=== PATIENT | female | born 1945 | race Caucasian/White ===

== ENCOUNTER → 2017-12-03 09:14 | Outpatient (CLI) | payer MEDICARE, OTHER, SELFPAY ==
--- NOTE | 2017-12-03 | DI.MG.S_ITS ---
BILATERAL DIGITAL DIAGNOSTIC MAMMOGRAM: 12/03/2017 CLINICAL: Right breast pain. Comparison is made to exam dated: 08/06/2016 [facility]. There are scattered fibroglandular elements in both breasts. There is an oval high density lymph node with a macrolobulated margin in the left breast posterior depth superior region seen on the mediolateral oblique view only. No other significant masses, calcifications, or other findings are seen in either breast. IMPRESSION: INCOMPLETE: NEEDS ADDITIONAL IMAGING EVALUATION The oval high density lymph node in the left breast is indeterminate. An ultrasound is recommended. There is no abnormality seen in the right axilla to correspond with the palpable abnormality in the right axilla, however, ultrasound is recommended. This exam was interpreted at Station ID: [id number]. NOTE: For mammograms, a report in lay terms will be sent to the patient. Approximately 15% of breast malignancies will not be visualized mammographically. In the management of a palpable breast mass, a negative mammogram must not discourage biopsy of a clinically suspicious lesion. Electronically Signed By: Juno cain/jacque:12/03/2017 12:00:30 letter sent: Need Ultrasound ACR BI-RADS Category 0: Incomplete [id number]
--- NOTE | 2017-12-03 | DI.US.S_ITS ---
ULTRASOUND OF RIGHT BREAST: 12/03/2017 CLINICAL: Focal right breast/axillary pain. Comparison is made to exams dated: 12/03/2017 mammogram and 08/06/2016 mammogram - [facility]. Real-time ultrasound of the right breast was performed on the area of interest. IMPRESSION: NEGATIVE There is no sonographic evidence of malignancy. There is no abnormality seen in the right axilla to correspond with the palpable abnormality in the right axilla, however, clinical followup is recommended. A 1 year screening mammogram is recommended. This exam was interpreted at Station ID: [id number]. Electronically Signed By: Juno cain/jacque:12/03/2017 11:00:58 letter sent: Clinical Evaluation Ultrasound BI-RADS: 1 Negative
--- NOTE | 2017-12-03 | DI.US.S_ITS ---
ULTRASOUND OF LEFT AXILLA: 12/03/2017 CLINICAL: Prominent left axillary nodes on mammo. Comparison is made to exams dated: 12/03/2017 mammogram and 08/06/2016 mammogram - [facility]. Color flow and real-time ultrasound of the left axilla were performed on the areas of interest. There are multiple oval lymph nodes with circumscribed margins in the left axillary tail. These oval lymph nodes are of mixed echogenicity with preserved fatty genoveva. These correlate with the mammography findings. Color flow imaging demonstrates that there is no increase in vascularity. IMPRESSION: BENIGN There is no sonographic evidence of malignancy. Multiple left axillary lymph nodes are noted with normal fatty genoveva and without evidence of abnormal focal cortical thickening. A 1 year screening mammogram is recommended. This exam was interpreted at Station ID: [id number]. Electronically Signed By: Juno Palmer M.D. ddp/:12/03/2017 11:04:27 letter sent: Normal Exam Ultrasound BI-RADS: 2 Benign
== END ==
PROVIDERS: PCP Physician Assistant; Visit Provider Physician Assistant
DX: N64.4 Mastodynia (principal); R92.8 Other abnormal and inconclusive findings on diagnostic imaging of breast; R59.0 Localized enlarged lymph nodes
CPT/HCPCS: 76642; 76882; 77066; G0279

== ENCOUNTER → 2018-01-26 12:08 | Outpatient (CLI) | payer MEDICARE, OTHER, SELFPAY ==
--- NOTE | 2018-01-26 | DI.RAD.S_ITS ---
PROCEDURE: XR CHEST 2V INDICATIONS: ACUTE BRONCHITIS TECHNIQUE: 2 views of the chest were acquired. COMPARISON: Merged with [facility], CHEST 2 VIEW, 10/17/2013, 14:39. Merged with [facility], CHEST 2 VIEW, 07/16/2011, 13:00. Merged with [facility], CHEST 2 VIEW, 10/14/2010, 14:38. FINDINGS: Surgical changes and devices: None. Lungs and pleura: No pleural effusions or pneumothorax. Lungs are clear. There is minimal bilateral bronchial wall thickening. Mediastinum: Mediastinal contours are normal. Heart size is normal. Bones and chest wall: No suspicious bony abnormalities. Soft tissues appear unremarkable. Mild multilevel degenerative changes of the spine. IMPRESSION: #1. No focal consolidations concerning for pneumonia. #2. Minimal bilateral bronchial wall thickening, nonspecific finding that can be seen with viral respiratory tract infections or obstructive lung disease is such as asthma. Dictated by: Abelino Cool M.D. on 01/26/2018 at 12:49 Approved by: Abelino Cool M.D. on 01/26/2018 at 12:51
== END ==
PROVIDERS: PCP Physician Assistant; Visit Provider Student in an Organized Health Care Education/Training Program
DX: J20.9 Acute bronchitis, unspecified (principal)
CPT/HCPCS: 71046

== ENCOUNTER 2018-07-11 15:08 | Emergency (ER) | payer MEDICARE, OTHER, SELFPAY ==
[2018-07-11 15:15] VITALS: BP 98/52; PULSE 75; RESP 16; TEMP 36.5; O2SAT 98; BMI 28.7
--- NOTE | 2018-07-11 15:24 | ED.ABDPAIN ---
HPI - Abdominal Pain <IGNACIO Luciano - Last Filed: 07/11/18 21:35> General Chief Complaint: Abdominal Pain Stated Complaint: Abd pain Time Seen by Provider: 07/11/18 15:21 Source: patient Mode of arrival: ambulatory Limitations: no limitations History of Present Illness HPI narrative: 73-year-old female history of hysterectomy and constipation here for complaint of constipation over the past several weeks. She reports that her last bowel movement was several days ago and was small and hard. She reports having generalized abdominal pain. She does report having some flatus today. Positive p.o. intake. No nausea vomiting. She denies any fevers or chills. No urinary symptoms. She has been using MiraLax for her symptoms. No other concerns or Related Data Home Medications Medication Instructions Recorded Confirmed estradiol 1 mg PO DAILY #0 09/07/17 07/11/18 Metamucil 1 dose PO DAILY 07/11/18 07/11/18 albuterol sulfate 3 ml INHALATION TID PRN 07/11/18 07/11/18 chlorthalidone 25 mg PO DAILY 07/11/18 07/11/18 diltiazem HCl [Cartia XT] 120 mg PO BEDTIME 07/11/18 07/11/18 docusate sodium [Colace] 100 mg PO DAILY 07/11/18 07/11/18 duloxetine 30 mg PO DAILY 07/11/18 07/11/18 esomeprazole magnesium 40 mg PO BID 07/11/18 07/11/18 fluticasone-vilanterol [Breo 1 puff INHALATION DAILY 07/11/18 07/11/18 Ellipta] hydrocodone-acetaminophen 1 - 2 tab PO TID PRN 07/11/18 07/11/18 levocetirizine [Xyzal] 5 mg PO BEDTIME 07/11/18 07/11/18 lisinopril 20 mg PO BID 07/11/18 07/11/18 montelukast 10 mg PO QPM 07/11/18 07/11/18 naproxen 500 mg PO BID 07/11/18 07/11/18 ondansetron 4 mg PO Q8H PRN 07/11/18 07/11/18 polyethylene glycol 3350 [Miralax] 17 g PO DAILY 07/11/18 07/11/18 pravastatin 20 mg PO DAILY 07/11/18 07/11/18 sertraline 100 mg PO DAILY 07/11/18 07/11/18 Previous Rx's Medication Instructions Recorded glycerin (adult) 1 suppositor [place] DAILY PRN #10 each 07/11/18 magnesium citrate 296 ml PO DAILY PRN #296 ml 07/11/18 Allergies Allergy/AdvReac Type Severity Reaction Status Date / Time codeine [CODEINE] Allergy Unknown Unverified 07/11/18 19:03 Penicillins [PENICILLINS] Allergy Unknown Unverified 07/11/18 19:03 Sulfa (Sulfonamide Allergy Unknown Unverified 07/11/18 19:03 Antibiotics) [SULFA (SULFONAMIDE ANTIBIOTICS)] Review of Systems <IGNACIO Luciano - Last Filed: 07/11/18 21:35> Constitutional Denies chills, Denies fever(s), Denies lethargy and Denies weakness Eyes Denies change in vision, Denies eye discharge, Denies irritation and Denies loss of vision ENT Ears, Nose, Mouth, and Throat: Denies change in voice, Denies neck pain and Denies sore throat Cardiovascular Denies chest pain, Denies irregular heart rhythm, Denies lightheadedness, Denies palpitations, Denies dyspnea, Denies dyspnea on exertion and Denies orthopnea Respiratory Denies cough, Denies dyspnea, Denies dyspnea on exertion and Denies wheezing Gastrointestinal Gastrointestinal: Reports abdominal pain and Reports constipation Genitourinary Denies hematuria, Denies flank pain, Denies urinary incontinence and Denies urinary urgency Musculoskeletal Denies neck pain Integumentary/Breasts Denies pruritus, Denies erythema, Denies rash and Denies wounds Neurologic Denies confusion, Denies loss of vision and Denies weakness Psychiatric Denies anxiety, Denies confusion, Denies depression, Denies homicidal ideation and Denies suicidal ideation Endocrine Denies palpitations Hematologic/Lymphatic Denies easy bruising Allergic/Immunologic Denies wheezing PFSH <IGNACIO Luciano - Last Filed: 07/11/18 21:35> Surgical History Status post cholecystectomy Status post hysterectomy Status post rotator cuff repair Social History Smoking Status: Never smoker Exam <IGNACIO Luciano - Last Filed: 07/11/18 21:35> Initial Vital Signs Initial Vital Signs: Vital Signs Temperature 97.7 F 07/11/18 15:15 Pulse Rate 75 07/11/18 15:15 Respiratory Rate 16 07/11/18 15:15 Blood Pressure 98/52 L 07/11/18 15:15 Pulse Oximetry 98 07/11/18 15:15 Const General: cooperative and well developed Nutritional Appearance: well nourished Orientation: alert, awake, oriented x3 and not confused HENMT Mouth: oral mucosae normal and moist mucous membranes Throat: posterior oropharynx normal Eyes Conjunctivae: conjunctivae normal Sclera: sclerae normal Pupils: PERRL EOM: EOM intact bilaterally Resp Effort & Inspection: normal respiratory effort, able to speak in complete sentences, no respiratory distress and no use of accessory muscles Auscultation: clear to auscultation bilaterally, no rales, no rhonchi and no wheezes Cardio Rate: regular rate Rhythm: regular rhythm Heart Sounds: no click, no gallops, no murmurs and no rubs Pulses: normal peripheral pulses GI Inspection: non-distended Palpation: soft, no hepatosplenomegaly, No guarding, No pulsatile mass and tender (Generalized tenderness.) Auscultation: normal bowel sounds General: No CVA tenderness Skin General: no rashes or lesions noted, No jaundice and No petechiae Neuro General: alert, oriented x3, gait normal and no focal motor deficits Speech: speech normal <Sujey Hightower DO - Last Filed: 07/20/18 16:38> Initial Vital Signs Initial Vital Signs: Vital Signs Temperature 97.7 F 07/11/18 15:15 Pulse Rate 75 07/11/18 15:15 Respiratory Rate 16 07/11/18 15:15 Blood Pressure 98/52 L 07/11/18 15:15 Pulse Oximetry 98 07/11/18 15:15 Course <IGNACIO Luciano - Last Filed: 07/11/18 21:35> Orders Ordered: Discontinued Medications Sodium Chloride (Normal Saline 0.9%) 1,000 mls @ 1,000 mls/hr IV BOLUS ONE Stop: 07/11/18 16:32 Last Infusion: 07/11/18 17:04 Dose: 0 mls/hr Admin: 07/11/18 15:46 Dose: 1,000 mls/hr Mineral Oil (Mineral Oil Enema) 1 each [place] NOW ONE Stop: 07/11/18 18:30 Last Admin: 07/11/18 18:46 Dose: 1 each Potassium Chloride (Klor-Con M20) 40 meq PO NOW ONE Stop: 07/11/18 19:27 Last Admin: 07/11/18 19:41 Dose: 40 meq Vital Signs - 8 hr 07/11/18 15:15 07/11/18 17:06 07/11/18 19:50 Temperature 97.7 F Pulse Rate 75 70 71 Respiratory Rate 16 16 14 Blood Pressure 98/52 L 122/75 Blood Pressure [Left Arm] 109/55 L Pulse Oximetry 98 96 99 <Sujey Hightower DO - Last Filed: 07/20/18 16:38> Orders Ordered: Discontinued Medications Sodium Chloride (Normal Saline 0.9%) 1,000 mls @ 1,000 mls/hr IV BOLUS ONE Stop: 07/11/18 16:32 Last Infusion: 07/11/18 17:04 Dose: 0 mls/hr Admin: 07/11/18 15:46 Dose: 1,000 mls/hr Mineral Oil (Mineral Oil Enema) 1 each [place] NOW ONE Stop: 07/11/18 18:30 Last Admin: 07/11/18 18:46 Dose: 1 each Potassium Chloride (Klor-Con M20) 40 meq PO NOW ONE Stop: 07/11/18 19:27 Last Admin: 07/11/18 19:41 Dose: 40 meq Vital Signs - 8 hr 07/11/18 15:15 07/11/18 17:06 07/11/18 19:50 Temperature 97.7 F Pulse Rate 75 70 71 Respiratory Rate 16 16 14 Blood Pressure 98/52 L 122/75 Blood Pressure [Left Arm] 109/55 L Pulse Oximetry 98 96 99 MDM - Abdominal Pain <IGNACIO Luciano - Last Filed: 07/11/18 21:35> Lab Data Result diagrams: 07/11/18 15:40 07/11/18 15:40 Lab Results 07/11/18 07/11/18 Range/Units 15:40 15:40 WBC 13.5 H (4.5-11.0) X10^3/uL RBC 4.55 (4.0-5.2) X10^6/uL Hgb 12.5 (12.0-16.0) g/dL Hct 38.4 (36-46) % MCV 84.4 (80-100) fL MCH 27.6 (26-34) PG MCHC 32.7 (30-36) % RDW 15.4 H (11.6-14.8) % Plt Count 299 (150-400) X10^3/uL Neut % (Auto) 77.4 H (50-75) % Lymph % (Auto) 13.6 L (25-40) % [place] % (Auto) 7.3 (3-14) % Eos % (Auto) 0.8 L (2-4) % Baso % (Auto) 0.9 (0-2) % Neut # (Auto) 31403 H (6995-6195) /uL Lymph # (Auto) 1800 (6081-0503) /uL [place] # (Auto) 1000 H (0-900) /uL Eos # (Auto) 100 (0-450) /uL Baso # (Auto) 100 (0-100) /uL Sodium 139 (137-145) mmol/L Potassium 3.2 L (3.4-5.1) mmol/L Chloride 95 L (98-107) mmol/L Carbon Dioxide 32 (22-32) mmol/L BUN 20 H (7-17) mg/dL Creatinine 1.10 H (0.52-1.04) mg/dL Estimated GFR 48.6 L (>60) mL/min BUN/Creatinine Ratio 18.2 (6-22) Glucose 112 H (80-110) mg/dL Calcium 10.0 (8.4-10.2) mg/dL Total Bilirubin 0.4 (0.2-1.3) mg/dL AST 32 (14-36) IU/L ALT 23 (9-52) IU/L Alkaline Phosphatase 88 (38-126) U/L Total Protein 8.0 (6.3-8.2) g/dL Albumin 4.8 (3.5-5.0) g/dL Globulin 3.2 (1.7-4.1) g/dL Albumin/Globulin Ratio 1.5 (1.0-2.8) Lipase 62 (23-300) U/L Point of care testing: Urine Dip Bedside Urine Glucose Negative Bedside Urine Bilirubin - Negative Bedside Urine Ketone - Negative Urine Specific [place] 1.010 Bedside Urine Occult Blood - Negative Bedside Urine pH 7.0 Bedside Urine Protein - Negative Bedside Urine Urobilinogen - Negative Bedside Urine Nitrite - Negative Bedside Urine Leukocytes - Negative Esterase MDM Narrative Medical decision making narrative: CBC shows mildly elevated white count otherwise unremarkable. Chem panel shows decreased GFR 48 and increased creatinine of 1.2. Her potassium was low at 3.2 she was given oral potassium in the emergency room. CT the abdomen was obtained and it shows Multiloculated cystic lesion to the right ovary. She is referred to railcar switchman for further evaluation and MRI. CT also showed dilation of the common bowel duct. Ultrasound of the abdomen was then ordered and shows that this is most likely secondary to cholecystectomy. Her discomfort presents as constipation. She was given a Fleet's oil enema in the emergency room and was able to have a small bowel movement. She is prescribed Mag citrate and glycerin suppositories. Plenty of fluids continue MiraLax follow up with primary care provider next few days. For any worsening symptoms return emergency room. <Sujey Hightower, DO - Last Filed: 07/20/18 16:38> Lab Data Lab Results 07/11/18 07/11/18 Range/Units 15:40 15:40 WBC 13.5 H (4.5-11.0) X10^3/uL RBC 4.55 (4.0-5.2) X10^6/uL Hgb 12.5 (12.0-16.0) g/dL Hct 38.4 (36-46) % MCV 84.4 (80-100) fL MCH 27.6 (26-34) PG MCHC 32.7 (30-36) % RDW 15.4 H (11.6-14.8) % Plt Count 299 (150-400) X10^3/uL Neut % (Auto) 77.4 H (50-75) % Lymph % (Auto) 13.6 L (25-40) % [place] % (Auto) 7.3 (3-14) % Eos % (Auto) 0.8 L (2-4) % Baso % (Auto) 0.9 (0-2) % Neut # (Auto) 08251 H (3833-0055) /uL Lymph # (Auto) 1800 (8928-7691) /uL [place] # (Auto) 1000 H (0-900) /uL Eos # (Auto) 100 (0-450) /uL Baso # (Auto) 100 (0-100) /uL Sodium 139 (137-145) mmol/L Potassium 3.2 L (3.4-5.1) mmol/L Chloride 95 L (98-107) mmol/L Carbon Dioxide 32 (22-32) mmol/L BUN 20 H (7-17) mg/dL Creatinine 1.10 H (0.52-1.04) mg/dL Estimated GFR 48.6 L (>60) mL/min BUN/Creatinine Ratio 18.2 (6-22) Glucose 112 H (80-110) mg/dL Calcium 10.0 (8.4-10.2) mg/dL Total Bilirubin 0.4 (0.2-1.3) mg/dL AST 32 (14-36) IU/L ALT 23 (9-52) IU/L Alkaline Phosphatase 88 (38-126) U/L Total Protein 8.0 (6.3-8.2) g/dL Albumin 4.8 (3.5-5.0) g/dL Globulin 3.2 (1.7-4.1) g/dL Albumin/Globulin Ratio 1.5 (1.0-2.8) Lipase 62 (23-300) U/L Point of care testing: Urine Dip Bedside Urine Glucose Negative Bedside Urine Bilirubin - Negative Bedside Urine Ketone - Negative Urine Specific [place] 1.010 Bedside Urine Occult Blood - Negative Bedside Urine pH 7.0 Bedside Urine Protein - Negative Bedside Urine Urobilinogen - Negative Bedside Urine Nitrite - Negative Bedside Urine Leukocytes - Negative Esterase Discharge Plan Departure Patient Disposition: Home Clinical Impression: Complex ovarian cyst, Acute hypokalemia Constipation Qualifiers: Constipation type: unspecified constipation type Qualified Code(s): K59.00 - Constipation, unspecified Discharge Date/Time: 07/11/18 19:51 Interventions: ED Discharge Assessment Last Done: 07/11/18 19:50 Instructions: DI for Constipation Activity Restrictions/Additional Instructions: CT of the abdomen today shows multiloculated cyst to the right ovary. Recommend follow up with OBGYN for further evaluation and MRI to better evaluate the right ovary. CT also showed dilated common bile duct this is felt to be most likely secondary to gallbladder surgery in the past. For constipation you are prescribed magnesium citrate use as directed. You also prescribed glycerin suppository also use as directed. Call forms designer at number provided to schedule follow-up appointment. Plenty of fluids. Continue to use MiraLax as prescribed. Follow up with her primary care provider. For any worsening symptoms return emergency room. Potassium levels were low today so year given potassium orally in the emergency room. Prescriptions: New magnesium citrate solution 296 ml PO DAILY PRN (Reason: constipation) Qty: 296 RF: 0 glycerin (adult) suppository 1 suppositor [place] DAILY PRN (Reason: constipation) Qty: 10 RF: 0 No Action estradiol 2 MG tablet 1 mg PO DAILY Qty: 0 RF: 0 albuterol sulfate 2.5 mg /3 mL (0.083 %) solution for nebulization 3 ml Inhalation TID PRN (Reason: Shortness Of Breath) RF: 0 polyethylene glycol 3350 [Miralax] 17 gram Powder In Packet 17 g PO DAILY RF: 0 lisinopril 20 mg tablet 20 mg PO BID RF: 0 sertraline 100 mg tablet 100 mg PO DAILY RF: 0 chlorthalidone 25 mg tablet 25 mg PO DAILY RF: 0 hydrocodone-acetaminophen 10-325 mg tablet 1 - 2 tab PO TID PRN (Reason: arthritis pain) RF: 0 esomeprazole magnesium 40 mg capsule,delayed release(DR/EC) 40 mg PO BID RF: 0 docusate sodium [Colace] 100 mg Capsule 100 mg PO DAILY RF: 0 diltiazem HCl [Cartia XT] 120 mg Capsule,Extended Release 24hr 120 mg PO BEDTIME RF: 0 montelukast 10 mg Tablet 10 mg PO QPM RF: 0 pravastatin 20 mg tablet 20 mg PO DAILY RF: 0 ondansetron 4 mg Tablet,Disintegrating 4 mg PO Q8H PRN (Reason: Nausea) RF: 0 naproxen 500 mg tablet 500 mg PO BID RF: 0 duloxetine 30 mg capsule,delayed release(DR/EC) 30 mg PO DAILY RF: 0 levocetirizine [Xyzal] 5 mg Tablet 5 mg PO BEDTIME RF: 0 fluticasone-vilanterol [Breo Ellipta] 200-25 mcg/dose blister with device 1 puff Inhalation DAILY RF: 0 Metamucil 1 dose PO DAILY RF: 0 Referrals: Shawna Arreola PA-C [Primary Care Provider] - Lazaro Mack MD [Physician] - <Sujey Hightower DO - Last Filed: 07/20/18 16:38> Cosign ED Attending Cosignature Attestation: I was immediately available in the department for consultation. This documentation has been reviewed and I agree with assessment and plan. Supervised by Sujey Hightower DO
--- NOTE | 2018-07-11 15:34 | DI.CT.S_ITS ---
PROCEDURE: CT ABDOMEN PELVIS W CON INDICATIONS: Bilateral lower abdominal pain TECHNIQUE: After the administration of intravenous contrast, 5 mm thick sections acquired from the diaphragm to the symphysis. 5 mm coronal and sagittal reformats were acquired. For radiation dose reduction, the following was used: automated exposure control, adjustment of mA and/or kV according to patient size. COMPARISON: [facility], CT, L-SPINE WITHOUT CONTRAST, 05/17/2013, 9:27. FINDINGS: Image quality: Excellent. ABDOMEN: Lung bases: Lung bases are clear. Heart size is normal. There is a small hiatal hernia. Solid organs: Liver is normal in size and enhancement. Gallbladder is surgically absent. The intrahepatic biliary system is non dilated. The common bile duct is ectatic measuring up to 1.3 cm in diameter. Punctate high density foci are present within the central portion of the bile ducts suggesting the presence of small stones (series 2, images 37 and 41). Pancreas enhances normally. Spleen is normal in size and enhancement. Benign-appearing calcifications are present in the splenic hilum. No adrenal nodules. Kidneys demonstrate normal size and enhancement, without hydronephrosis. Peritoneum and bowel: Bowel loops demonstrate normal wall thickness and caliber. The appendix was not visualized; however there are no ancillary findings to suggest acute appendicitis. No free fluid or air. Nodes and vessels: No retroperitoneal or mesenteric adenopathy by size criteria. Aorta and inferior vena cava are normal in size. Miscellaneous: No ventral hernias. PELVIS: Genitourinary: Bladder wall thickness is normal. The uterus is nonvisualized and may be surgically absent. The right ovary is unremarkable. A multiloculated cystic lesion is present in the expected location of the right ovary which measures approximately 4.5 x 4.4 x 5.4 cm. Miscellaneous: No inguinal hernias or adenopathy. Bones: No suspicious bony lesions. No vertebral body compression fractures. IMPRESSION: 1. Multiloculated cystic lesion within the right ovary. Further characterization with ultrasound or gynecologic protocol MRI is recommended. Given patient's age and the appearance of this lesion, ovarian neoplasm cannot be excluded. Gynecologic consultation also recommended. 2. Dilatation of the common bile duct. Although this may be secondary to cholecystectomy, questionable high density filling defects are present within the central portion of the bile duct. Choledocholithiasis cannot be excluded. Right upper quadrant ultrasound or MRCP would be helpful to further characterize these findings. 3. The appendix is not visualized; however there are no ancillary findings to suggest acute appendicitis. Posterior fixation hardware is grossly intact. There is grade II L5 on S1 anterolisthesis. This finding is unchanged when compared with the study dated 05/17/13. These findings were discussed with IGNACIO Luciano at 4:46 PM on 07/11/18. Dictated by: Adriana Zimmer M.D. on 07/11/2018 at 16:38 Approved by: Adriana Zimmer M.D. on 07/11/2018 at 16:48
[2018-07-11] MEDS: SODIUM CHLORIDE 0.9% 1,000 ML 1000 ML IV (15:46)
[2018-07-11 15:49] LABS: Add Manual Diff / Slide Review NO; Basophils Absolute Auto 100 /uL (0-100); Basophils Percent Auto 0.9 % (0-2); Eosinophils Absolute Auto 100 /uL (0-450); Eosinophils Percent Auto 0.8 % (2-4); Hematocrit 38.4 % (36-46); Hemoglobin 12.5 g/dL (12.0-16.0); Lymphocytes Absolute Auto 1800 /uL (1100-4500); Lymphocytes Percent Auto 13.6 % (25-40); Mean Corpuscular HGB Conc 32.7 % (30-36); Mean Corpuscular Hemoglobin 27.6 PG (26-34); Mean Corpuscular Volume 84.4 fL (80-100); Monocytes Absolute Auto 1000 /uL (0-900); Monocytes Percent Auto 7.3 % (3-14); Neutrophils Absolute Auto 10400 /uL (1500-7000); Neutrophils Percent Auto 77.4 % (50-75); Platelet Count 299 X10^3/uL (150-400); Red Blood Cell Count 4.55 X10^6/uL (4.0-5.2); Red Cell Distribution Width 15.4 % (11.6-14.8); White Blood Cell Count 13.5 X10^3/uL (4.5-11.0)
[2018-07-11 16:10] LABS: Alanine Aminotransferase 23 IU/L (9-52); Albumin 4.8 g/dL (3.5-5.0); Albumin Globulin Ratio 1.5 (1.0-2.8); Alkaline Phosphatase 88 U/L (38-126); Aspartate Aminotransferase 32 IU/L (14-36); BUN Creatinine Ratio 18.2 (6-22); Bilirubin Total 0.4 mg/dL (0.2-1.3); Blood Urea Nitrogen 20 mg/dL (7-17); Carbon Dioxide 32 mmol/L (22-32); Chloride 95 mmol/L (98-107); Estimated Glomerular Filt Rate 48.6 mL/min (>60); Globulin 3.2 g/dL (1.7-4.1); Glucose 112 mg/dL (80-110); HEMOLYSIS < 15 (0-50); Lipase 62 U/L (23-300); Potassium 3.2 mmol/L (3.4-5.1); Sodium 139 mmol/L (137-145)
[2018-07-11 17:06] VITALS: BP 109/55; PULSE 70; RESP 16; O2SAT 96
--- NOTE | 2018-07-11 17:10 | DI.US.S_ITS ---
PROCEDURE: US ABDOMEN LIMITED INDICATIONS: Abdominal pain /w common bile duct wall thickening on CT TECHNIQUE: Real-time focused scanning was performed of the abdomen, with image documentation. COMPARISON: [facility], CT, CT ABDOMEN PELVIS W CON, 07/11/2018, 16:11. FINDINGS: Gallbladder is enlarged measuring 18.3 cm and demonstrates steatosis. The gallbladder is absent. Common bile duct is mildly prominent measuring 10 mm. No filling defects are identified. Visualized pancreatic head and body are within normal limits. IMPRESSION: Mildly prominent common bile duct suspected to be related to post cholecystectomy sequela. No definitive filling defects are identified. Dictated by: Sloane Lowe M.D. on 07/11/2018 at 17:58 Approved by: Sloane Lowe M.D. on 07/11/2018 at 17:59
[2018-07-11] MEDS: MINERAL OIL 1 EACH ENEMA PR (18:46)
--- NOTE | 2018-07-11 19:13 | PC.NURSE ---
Minimal output from enema. Provider Mone aguilar.
[2018-07-11] MEDS: POTASSIUM CHLORIDE 20 MEQ TAB 40 MEQ PO (19:41)
[2018-07-11 19:50] VITALS: BP 122/75; PULSE 71; RESP 14; O2SAT 99
== END 2018-07-11 19:51 | disposition home or self-care (01) ==
PROVIDERS: Emergency Provider Nurse Practitioner Family; PCP Physician Assistant
DX: N83.299 Other ovarian cyst, unspecified side (principal); E87.6 Hypokalemia; K59.00 Constipation, unspecified
CPT/HCPCS: 36591; 74177; 76705; 80053; 81003; 83690; 85025; 96360; 99283; 99285; Q9967

== ENCOUNTER → 2018-07-21 12:02 | Outpatient (CLI) | payer MEDICARE, OTHER, SELFPAY ==
--- NOTE | 2018-07-21 12:04 | DI.US.S_ITS ---
PROCEDURE: US PELVIC COMPLETE INDICATIONS: Evaluation of abnormal finding of reproductive organs TECHNIQUE: Real-time scanning was performed of the pelvic organs, with image documentation. Additional endovaginal scanning was necessary due to incomplete visualization of the adnexal and endometrial structures by transabdominal scanning. COMPARISON: [facility], CT, CT ABDOMEN PELVIS W CON, 07/11/2018, 16:11. [facility], US, US ABDOMEN LIMITED, 07/11/2018, 17:26. FINDINGS: Transabdominal scanning: No pathologic free abdominal or pelvic fluid. Endovaginal scanning: Uterus: Surgically absent. Ovaries: Left ovary is not visualized on this study. 7.3 x 4 x 5.4 cm complex cystic structure is noted within right ovary with very little normal ovarian tissue identified and show normal vascularity. No internal vascularity is noted within the cystic mass. IMPRESSION: Complex avascular cystic mass involving right ovary as described above and may represent neoplasm of right ovarian origin. Left ovary is not visualized on this study. No pelvic free fluid. Dictated by: Marcus Diaz M.D. on 07/21/2018 at 15:18 Approved by: Marcus Diaz M.D. on 07/21/2018 at 15:20
== END ==
PROVIDERS: PCP Physician Assistant
DX: R93.89 Abnormal findings on diagnostic imaging of other specified body structures (principal); N83.291 Other ovarian cyst, right side
CPT/HCPCS: 76856

== ENCOUNTER → 2018-07-27 14:14 | Outpatient (CLI) | payer MEDICARE, OTHER, SELFPAY ==
[2018-07-27 16:17] LABS: Cancer Antigen 125 9 U/mL (0-35)
[2018-07-30 14:55] LABS: Human HE4 Antigen 65 pmol/L
== END ==
PROVIDERS: PCP Physician Assistant
DX: N83.299 Other ovarian cyst, unspecified side (principal); N83.9 Noninflammatory disorder of ovary, fallopian tube and broad ligament, unspecified
CPT/HCPCS: 36415; 86304; 86305

== ENCOUNTER → 2018-09-23 09:29 | Outpatient (CLI) | payer MEDICARE, OTHER, SELFPAY ==
[2018-09-23 12:10] LABS: Cancer Antigen 125 15 U/mL (0-35)
[2018-09-27 17:11] LABS: Human HE4 Antigen 62 pmol/L
== END ==
PROVIDERS: PCP Physician Assistant
DX: N83.299 Other ovarian cyst, unspecified side (principal); N83.9 Noninflammatory disorder of ovary, fallopian tube and broad ligament, unspecified
CPT/HCPCS: 36415; 86304; 86305

== ENCOUNTER 2019-01-11 12:53 | Day surgery (SDC) | payer MEDICARE, OTHER, SELFPAY ==
--- NOTE | 2019-01-11 | PATH_ITS ---
[facility] Accession Number: [id number] . 01 Material submitted: . colon - CECAL POLYP . 02 Diagnosis: Cecum, Polyp, Biopsy: Tubular adenoma. MRV/01/13/2019 . 02 Electronically signed: . Cely Nair MD, Pathologist NPI- [id number] . 01 Gross description: . CECAL POLYP: Received in formalin is 1 fragment(s) of pugh, soft tissue measuring 0.4 x 0.3 x 0.3 cm submitted entirely in 1 cassette(s) /CKI /CKI . 02 Pathologist provided ICD-10: D12.0 . 02 CPT . 595662 Performed at: 01 [facility] [address], [place], [place] [id number] MD Juno Cuello MD Phone: [phone] Performed at: 02 [facility] [address] [place], [place] [id number] MD Cely Nair MD Phone: [phone]
--- NOTE | 2019-01-11 13:09 | PM.OP.ENDO ---
Operative Date/Time/Diagnoses Pre-op diagnosis: See indication and findings Procedure & Clinicians Study performed: Colonoscopy Same procedure as scheduled: Yes Indications: Screening Surgeon: Kevin Soriano Procedure Notes Procedure in detail: After informed consent was obtained the patient was placed in left lateral decubitus position. The video colonoscope was introduced the rectum and slowly advanced to the cecum. On slow withdrawal mucosa was carefully examined. The scope was removed. The patient tolerated the procedure well. Preparation was good. Blood loss none Complications none Sedation Total sedation time 16 minutes Versed 5 mg fentanyl 125 mg IV titration Findings 1. Only fair preparation. Well many of the peraza could be washed clean particularly in the right colon there were many areas that had semi solid stool that could not be suctioned away. 2. 5 mm polyp in the cecum, sessile. Jumbo biopsy removed completely We will be in touch regarding her pathology results. Given her relatively poor prep she should have follow-up colonoscopy within 1 year by GI society recommendations. Society recommendations.
[2019-01-11 13:43] VITALS: BP 153/87; PULSE 85; RESP 16; TEMP 36.6; O2SAT 98; BMI 27.4
[2019-01-11] MEDS: SODIUM CHLORIDE 0.9% 1,000 ML 50 ML IV (14:08)
--- NOTE | 2019-01-11 14:27 | PM.HP.1 ---
History of Present Illness Chief complaint: 24945 COLONOSCOPY Narrative: Change in bowel movements. Patient History Family & Social History Social History: household members spouse Tobacco & Substance use: Smoking Status Never smoker alcohol intake frequency 0-2 drinks per day Substance Use Type does not use Meds Home Medications Medication Instructions Recorded Confirmed Type estradiol 1 mg PO DAILY #0 09/07/17 01/11/19 History albuterol sulfate 3 ml INHALATION TID PRN 07/11/18 01/11/19 History chlorthalidone 25 mg PO DAILY 07/11/18 01/11/19 History diltiazem HCl [Cartia XT] 120 mg PO BEDTIME 07/11/18 01/11/19 History duloxetine 30 mg PO DAILY 07/11/18 01/11/19 History levocetirizine [Xyzal] 5 mg PO BEDTIME 07/11/18 01/11/19 History lisinopril 20 mg PO BID 07/11/18 01/11/19 History naproxen 500 mg PO BID 07/11/18 01/11/19 History ondansetron 4 mg PO Q8H PRN 07/11/18 01/11/19 History pravastatin 20 mg PO DAILY 07/11/18 01/11/19 History duloxetine 30 mg capsule,delayed 30 mg PO BID 09/29/18 01/11/19 History release magnesium hydroxide [Milk of 5 ml PO BEDTIME PRN 01/11/19 01/11/19 History Magnesia] Allergies Allergy/AdvReac Type Severity Reaction Status Date / Time codeine [CODEINE] Allergy Unknown Verified 01/11/19 13:40 Penicillins [PENICILLINS] Allergy Unknown Verified 01/11/19 13:40 Sulfa (Sulfonamide Allergy Unknown Verified 01/11/19 13:40 Antibiotics) [SULFA (SULFONAMIDE ANTIBIOTICS)] Exam Vital Signs (past 8 hours): - 01/11/19 13:43 Temperature 97.9 F Pulse Rate 85 Respiratory Rate 16 Blood Pressure 153/87 H Pulse Oximetry 98 Oxygen Delivery Method Room Air Narrative Exam Narrative: Oropharynx free of lesions Chest clear to auscultation percussion Cardiac exam reveals no S3 or murmur Assessment & Plan Assessment & Plan narrative: Recent change in bowel movements with worsening constipation and need for colorectal cancer screening. Risks, benefits, alternatives have been explained.
[2019-01-11] MEDS: MIDAZOLAM 5 MG/5 ML VIAL IV (15:50)
[2019-01-11] MEDS: fentaNYL 250 MCG/5 ML INJ IV (15:50)
[2019-01-11 15:55] VITALS: BP 127/68; PULSE 77; RESP 15; TEMP 36.2; O2SAT 96
[2019-01-11 16:00] VITALS: BP 127/72; PULSE 73; RESP 11; O2SAT 96
[2019-01-11 16:05] VITALS: BP 115/68; PULSE 74; RESP 11; O2SAT 98
[2019-01-11 16:10] VITALS: BP 132/72; PULSE 83; RESP 13; O2SAT 97
[2019-01-11 16:20] VITALS: BP 131/74; PULSE 87; RESP 16; TEMP 36.8; O2SAT 95
== END 2019-01-11 16:33 | disposition home or self-care (01) ==
LOC: ENDO 12:55
PROVIDERS: PCP Physician Assistant; Visit Provider Internal Medicine Gastroenterology
PROC: 0DJD8ZZ Inspection of Lower Intestinal Tract, Via Natural or Artificial Opening Endoscopic (ICD-10-PCS; CPT 45378; principal; 2019-01-11 14:30)
DX: Z12.11 Encounter for screening for malignant neoplasm of colon (principal); D12.0 Benign neoplasm of cecum
CPT/HCPCS: 45380; 88305; J2250; J3010

== ENCOUNTER → 2019-04-04 18:31 | Outpatient (ROUT) | payer MEDICARE, OTHER, SELFPAY ==
[2019-04-04 18:58] LABS: C-Reactive Protein Quant 1.3 mg/dL (<1.0)
[2019-04-04 19:01] LABS: Rheumatoid Factor < 8.6 IU/mL (<12.0)
[2019-04-04 19:30] LABS: Erythrocyte Sedimentation Rate 12 MM/HR (0-20)
[2019-04-08 22:44] LABS: ANA Pattern NUCLEAR, HOMOGENEOUS; ANA Screen, IFA POSITIVE (NEGATIVE)
== END ==
PROVIDERS: PCP Physician Assistant; Visit Provider Physician Assistant
DX: R61 Generalized hyperhidrosis (principal); G89.4 Chronic pain syndrome; M25.50 Pain in unspecified joint; M13.0 Polyarthritis, unspecified
CPT/HCPCS: 85651; 86038; 86140; 86430

== ENCOUNTER → 2019-05-15 14:01 | Outpatient (CLI) | payer MEDICARE, OTHER, SELFPAY ==
[2019-05-15 16:39] LABS: TSH w/ Reflex to FT4 0.68 uIU/mL (0.47-4.68)
[2019-05-17 15:47] LABS: Calcitonin < 2 pg/mL (< 6)
[2019-05-18 09:04] LABS: Z- Score (Female) -1.7 SD (-2.0 - +2.0)
[2019-05-21 19:31] LABS: Metanephrine, Free 29 pg/mL (< OR = 57); Normetanephrine, Free 211 pg/mL (< OR = 148)
== END ==
PROVIDERS: PCP Physician Assistant; Visit Provider Internal Medicine Endocrinology, Diabetes & Metabolism
DX: R61 Generalized hyperhidrosis (principal)
CPT/HCPCS: 36415; 82308; 83520; 83835; 84305; 84443

== ENCOUNTER → 2019-05-17 14:50 | Outpatient (CLI) | payer MEDICARE, OTHER, SELFPAY ==
[2019-05-25 09:59] LABS: Cortisol, Saliva 1 sample QNS
== END ==
PROVIDERS: PCP Physician Assistant; Visit Provider Internal Medicine Endocrinology, Diabetes & Metabolism
DX: R61 Generalized hyperhidrosis (principal)
CPT/HCPCS: 82530

== ENCOUNTER → 2019-05-26 15:57 | Outpatient (CLI) | payer MEDICARE, OTHER, SELFPAY ==
[2019-05-30 10:59] LABS: Metanephrine, Free < 25 pg/mL (< OR = 57); Normetanephrine, Free 187 pg/mL (< OR = 148)
[2019-05-31 16:10] LABS: Chromogranin A, Serum 3554 ng/mL (25-140)
== END ==
PROVIDERS: PCP Physician Assistant; Visit Provider Internal Medicine Endocrinology, Diabetes & Metabolism
DX: R61 Generalized hyperhidrosis (principal)
CPT/HCPCS: 36415; 83835; 86316

== ENCOUNTER → 2019-06-01 13:49 | Outpatient (CLI) | payer MEDICARE, OTHER, SELFPAY ==
[2019-06-06 09:09] LABS: Metanephrine, Free < 25 pg/mL (< OR = 57); Normetanephrine, Free 171 pg/mL (< OR = 148)
[2019-06-09 10:52] LABS: Cortisol, Saliva 1 sample QNS
== END ==
PROVIDERS: PCP Physician Assistant; Visit Provider Internal Medicine Endocrinology, Diabetes & Metabolism
DX: R61 Generalized hyperhidrosis (principal)
CPT/HCPCS: 36415; 82530; 83835

== ENCOUNTER → 2019-06-13 13:44 | Outpatient (CLI) | payer MEDICARE, OTHER, SELFPAY ==
[2019-06-16 18:25] LABS: Cortisol, Saliva 1 sample <0.03 mcg/dL
== END ==
PROVIDERS: PCP Physician Assistant; Visit Provider Internal Medicine Endocrinology, Diabetes & Metabolism
DX: R61 Generalized hyperhidrosis (principal)
CPT/HCPCS: 82530

== ENCOUNTER → 2019-07-12 12:20 | Outpatient (CLI) | payer MEDICARE, OTHER, SELFPAY ==
--- NOTE | 2019-07-12 | DI.MRI.S_ITS ---
PROCEDURE: MR LUMBAR SPINE WO/W CON INDICATIONS: Sciatica, left side TECHNIQUE: Noncontrast sagittal T1 spin echo and T2 fast spin echo, sagittal STIR, axial T1 and T2 fast spin echo through the lumbar spine. In cases with scoliosis, additional coronal T2 fast spin echo may be performed. After the administration of contrast, sagittal and axial T1 spin echo with fat saturation through the lumbar spine. COMPARISON: [facility], CR, XR CHEST 2V, 01/26/2018, 11:50. [facility], CR, XR LUMBAR SPINE 2 OR 3 VIEWS, 07/04/2019, 14:26. [facility], CT, CT ABDOMEN PELVIS W CON, 07/11/2018, 16:11. FINDINGS: Image quality: Excellent. Alignment and curvature: There is normal bony alignment except for the presence of mild grade 1 retrolisthesis of L2 on L3 and moderate grade 2 anterolisthesis of L5 on S1 in this patient with prior fusion having been performed at L4-L5 by posterior transverse pedicle screws and vertical fixation rods. Marrow: Marrow is of normal overall signal. Metal artifact from the fusion procedure degrades quality of marrow space visualization at L4 and L5 dorsally. No acute vertebral body compression fractures. No suspicious marrow enhancement. Spinal cord: Conus medullaris terminates at the L1 level. Visualized spinal cord demonstrates normal signal, without suspicious enhancement. Paraspinous soft tissues: No paravertebral masses or abnormal enhancement. L1-L2: Normal appearance except for slight degenerative disc height reduction and slight disc bulge posteriorly. L2-L3: Mild degenerative disc disease with disc height reduction and disc desiccation. Very slight posterior disc bulge. L3-L4: Mild to moderate degenerative disc reduction in desiccation, small posterior transverse disc bulge.. L4-L5: Prior laminectomy bilaterally, also present at L5-S1. Interbody disc prosthesis, no definite spinal or foraminal stenosis.. L5-S1: The anterolisthesis of L5 on S1 is grade 2, with prominent disc height reduction also. Foraminal stenosis appears prominent bilaterally associated with disc height reduction and anterolisthesis. Quality of visualization at the posterior elements however is significantly limited by the metal artifact present.. IMPRESSION: No acute disease, no disc herniation found. Anterolisthesis grade 2 is significant at L5-S1 associated with disc height reduction and also significant foraminal stenosis. Spinal stenosis further contributes to likelihood of nerve root impingement this level. With reference to prior surgical intervention there are transverse pedicle screws and vertical fixation rods bilaterally crossing L4-L5, with metal artifact dorsally. No operative complication is found. Interbody disc prosthesis is seen at the L4-L5 disc, centrally positioned. Dictated by: Kel Reynolds M.D. on 07/12/2019 at 16:16 Approved by: Kel Reynolds M.D. on 07/12/2019 at 16:25
== END ==
PROVIDERS: Family Provider Physician Assistant; PCP Physician Assistant; Visit Provider Orthopaedic Surgery
DX: M54.32 Sciatica, left side (principal); M43.17 Spondylolisthesis, lumbosacral region; M48.07 Spinal stenosis, lumbosacral region; Z98.1 Arthrodesis status
CPT/HCPCS: 72158; A9579

== ENCOUNTER → 2019-07-19 14:44 | Outpatient (CLI) | payer MEDICARE, OTHER, SELFPAY ==
[2019-07-22 13:56] LABS: Chromogranin A, Serum 163 ng/mL (25-140)
== END ==
PROVIDERS: Family Provider Physician Assistant; PCP Physician Assistant; Referring Provider Internal Medicine Endocrinology, Diabetes & Metabolism; Visit Provider Internal Medicine Endocrinology, Diabetes & Metabolism
DX: R61 Generalized hyperhidrosis (principal)
CPT/HCPCS: 36415; 86316

== ENCOUNTER 2019-09-12 12:55 | Emergency (ER) | payer MEDICARE, OTHER, SELFPAY ==
[2019-09-12 13:05] VITALS: BP 159/80; PULSE 96; RESP 12; TEMP 36.5; O2SAT 98
--- NOTE | 2019-09-12 13:13 | DI.RAD.S_ITS ---
PROCEDURE: XR SHOULDER LT MIN 2V INDICATIONS: shoulder pain TECHNIQUE: 3 views of the shoulder were acquired. COMPARISON: None. FINDINGS: Bones: No fractures or dislocations. Acromioclavicular joint osteoarthritic changes are seen. No suspicious bony lesions. Visualized ribs appear intact. Soft tissues: No suspicious soft tissue calcifications. IMPRESSION: Mild acromioclavicular joint osteoarthritis. No gross acute fracture or dislocation. Dictated by: Marcus Diaz M.D. on 09/12/2019 at 13:36 Approved by: Marcus Diaz M.D. on 09/12/2019 at 13:37
--- NOTE | 2019-09-12 13:18 | PC.NURSE ---
PT DENIES INJURY. NO OBVIOUS DEFORMITY NOTED. DECREASED ROM NOTED RT PAIN PER PT.
[2019-09-12] MEDS: HYDROCODONE/ACET 5/325 TABLET 1 TAB PO (13:28)
[2019-09-12] MEDS: KETOROLAC 60 MG/2 ML VIAL 30 MG IM (13:30)
[2019-09-12] MEDS: LIDOCAINE PATCH 1 EACH ADH..PATCH TOP (13:30)
--- NOTE | 2019-09-12 13:30 | ED.UPPEXIN ---
HPI - Extremity Injury (Upper) <Sujey Olivares, WEB DESIGN SPECIALIST-BC - Last Filed: 09/12/19 15:31> General Chief Complaint: Extremity Injury, Upper Stated Complaint: PER PHYS LT ARM PAIN Time Seen by Provider: 09/12/19 13:02 Source: patient Mode of arrival: Ambulatory Limitations: no limitations History of Present Illness HPI narrative: The patient is a 74-year-old female nonsmoker presents with her for chief complaint of left shoulder pain. She woke up with left-sided shoulder pain 2 weeks ago with decreased range of motion, worse with movement and pressure to her left shoulder. She states her pain is now getting worse, so her PCP referred her to the emergency department. She has been using her 3 times a day Vicodin which she has prescribed for her rheumatoid arthritis. She denies any previous injuries to her left shoulder, but states that she has had a right shoulder surgery before. She states the pain is in the middle of her left-sided upper arm. She denies any falls or trauma. She states that she started using it more recently to clean her house, and that her pain got worse. Her presents requesting a steroid injection into her shoulder. Related Data Home Medications Medication Instructions Recorded Confirmed estradiol 1 mg PO DAILY #0 09/07/17 01/11/19 albuterol sulfate 3 ml INHALATION TID PRN 07/11/18 01/11/19 chlorthalidone 25 mg PO DAILY 07/11/18 01/11/19 diltiazem HCl [Cartia XT] 120 mg PO BEDTIME 07/11/18 01/11/19 duloxetine 30 mg PO DAILY 07/11/18 01/11/19 levocetirizine [Xyzal] 5 mg PO BEDTIME 07/11/18 01/11/19 lisinopril 20 mg PO BID 07/11/18 01/11/19 naproxen 500 mg PO BID 07/11/18 01/11/19 ondansetron 4 mg PO Q8H PRN 07/11/18 01/11/19 pravastatin 20 mg PO DAILY 07/11/18 01/11/19 duloxetine 30 mg capsule,delayed 30 mg PO BID 09/29/18 01/11/19 release magnesium hydroxide [Milk of 5 ml PO BEDTIME PRN 01/11/19 01/11/19 Magnesia] Previous Rx's Medication Instructions Recorded cyclobenzaprine 10 mg PO TID PRN #20 tab 09/12/19 ketorolac 10 mg PO TID PRN 5 Days #14 tab 09/12/19 Allergies Allergy/AdvReac Type Severity Reaction Status Date / Time codeine [CODEINE] Allergy Unknown Verified 01/11/19 13:40 Penicillins [PENICILLINS] Allergy Unknown Verified 01/11/19 13:40 Sulfa (Sulfonamide Allergy Unknown Verified 01/11/19 13:40 Antibiotics) [SULFA (SULFONAMIDE ANTIBIOTICS)] Review of Systems <ELENA Cruz - Last Filed: 09/12/19 15:31> Review of Systems Narrative: GENERAL: Denies chills, fatigue, malaise, fever, sweats. HEENT: Denies sinus pain, ear pain, sore throat, difficulty swallowing, dizziness. RESPIRATORY: Denies dyspnea, cough, wheezing, hemoptysis, sputum. CARDIOVASCULAR: Denies chest pain, palpitations, orthopnea, edema, GASTROINTESTINAL: Denies nausea, vomiting, abdominal pain, diarrhea, constipation, melena. : Denies dysuria, frequency, incontinence, hematuria, urinary retention. MUSCULOSKELETAL: See HPI SKIN: Denies rash, skin lesions, or other NEUROLOGIC: Denies weakness, headache, numbness, change in speech, confusion, seizures, incoordination. PSYCHIATRIC: No concerning psychosocial issues. 12 point review of systems is negative except for those stated above Patient History <ELENA Cruz - Last Filed: 09/12/19 15:31> Surgical History Status post cholecystectomy Status post hysterectomy Status post rotator cuff repair Social History household members: spouse Smoking Status: Never smoker Smoking Status: Never smoker alcohol intake frequency: 0-2 drinks per day Substance Use Type: does not use Exam <ELENA Cruz - Last Filed: 09/12/19 15:31> Narrative Exam Narrative: GENERAL: This is a well-nourished, well-developed patient, appears uncomfortable HEAD: Atraumatic. Normocephalic. No temporal or scalp tenderness. EYES: Pupils equal round and reactive. Extraocular motions intact. No scleral icterus. No injection or drainage. ENT: Nose without bleeding, purulent drainage or septal hematoma. Throat without erythema, tonsillar hypertrophy or exudate. Uvula midline. Airway patent. NECK: Trachea midline. No JVD or lymphadenopathy. Supple, nontender, no meningeal signs. CARDIOVASCULAR: Regular rate and rhythm RESPIRATORY: Clear to auscultation. Breath sounds equal bilaterally. No wheezes, rales, or rhonchi. GASTROINTESTINAL: Abdomen soft, non-tender, nondistended. No hepato-splenomegaly, or palpable masses. No guarding. EXTREMITIES: Decreased range of motion all brunson noted left shoulder. Positive radial pulses bilateral hands. Negative empty can test left shoulder. Pain to palpation lateral aspect left shoulder. BACK: Nontender without deformity or crepitance. No flank tenderness. NEURO: AOx3. SKIN: No rash or erythema on visible skin Initial Vital Signs Initial Vital Signs: Vital Signs Temperature 97.7 F 09/12/19 13:05 Pulse Rate 96 H 09/12/19 13:05 Respiratory Rate 12 09/12/19 13:05 Blood Pressure 159/80 H 09/12/19 13:05 Pulse Oximetry 98 09/12/19 13:05 <Nori Morris MD - Last Filed: 09/12/19 17:15> Initial Vital Signs Initial Vital Signs: Vital Signs Temperature 97.7 F 09/12/19 13:05 Pulse Rate 96 H 09/12/19 13:05 Respiratory Rate 12 09/12/19 13:05 Blood Pressure 159/80 H 09/12/19 13:05 Pulse Oximetry 98 09/12/19 13:05 Course <ELENA Cruz - Last Filed: 09/12/19 15:31> Orders Ordered: ED Orders 09/12/19 13:13 XR shoulder LT min 2V Stat Discontinued Medications Hydrocodone Bitart/Acetaminophen (Vanderbilt 5/325) 1 tab PO NOW ONE Stop: 09/12/19 13:14 Last Admin: 09/12/19 13:28 Dose: 1 tab Documented by: ELIZABETH Cyclobenzaprine HCl (Flexeril) 10 mg PO NOW ONE Stop: 09/12/19 14:28 Last Admin: 09/12/19 14:41 Dose: 10 mg Documented by: DARLENE Ketorolac Tromethamine (Toradol) 30 mg IM NOW ONE Stop: 09/12/19 13:14 Last Admin: 09/12/19 13:30 Dose: 30 mg Documented by: ELIZABETH Lidocaine (Lidoderm) 1 each TOP NOW ONE Stop: 09/12/19 13:14 Last Admin: 09/12/19 13:30 Dose: 1 each Documented by: ELIZABETH Vital Signs Vital signs: Vital Signs - 8 hr 09/12/19 13:05 09/12/19 14:47 Temperature 97.7 F Pulse Rate 96 H 71 Respiratory Rate 12 15 Blood Pressure 159/80 H Blood Pressure [Right Arm] 123/76 Pulse Oximetry 98 97 <Nori Morris MD - Last Filed: 09/12/19 17:15> Orders Ordered: ED Orders 09/12/19 13:13 XR shoulder LT min 2V Stat Discontinued Medications Hydrocodone Bitart/Acetaminophen (Vanderbilt 5/325) 1 tab PO NOW ONE Stop: 09/12/19 13:14 Last Admin: 09/12/19 13:28 Dose: 1 tab Documented by: ELIZABETH Cyclobenzaprine HCl (Flexeril) 10 mg PO NOW ONE Stop: 09/12/19 14:28 Last Admin: 09/12/19 14:41 Dose: 10 mg Documented by: DARLENE Ketorolac Tromethamine (Toradol) 30 mg IM NOW ONE Stop: 09/12/19 13:14 Last Admin: 09/12/19 13:30 Dose: 30 mg Documented by: ELIZABETH Lidocaine (Lidoderm) 1 each TOP NOW ONE Stop: 09/12/19 13:14 Last Admin: 09/12/19 13:30 Dose: 1 each Documented by: ELIZABETH Vital Signs Vital signs: Vital Signs - 8 hr 09/12/19 13:05 09/12/19 14:47 Temperature 97.7 F Pulse Rate 96 H 71 Respiratory Rate 12 15 Blood Pressure 159/80 H Blood Pressure [Right Arm] 123/76 Pulse Oximetry 98 97 MDM - Extremity Injury (Upper) <ELENA Crzu - Last Filed: 09/12/19 15:31> Imaging Data Extremity x-ray #1: Radiologist's Impression: [address] [place] [id number] XRay Report Signed Patient: Ruth Yee WMR#: [id number] : 5Acct:[id number] Age/Sex: 74 / FDate of Service: 09/12/19 Loc: ED Accession Number: [id number] Procedure: XR shoulder LT min 2V Ordering Provider: Sujey Olivraes PROCEDURE: XR SHOULDER LT MIN 2V INDICATIONS: shoulder pain TECHNIQUE: 3 views of the shoulder were acquired. COMPARISON: None. FINDINGS: Bones: No fractures or dislocations. Acromioclavicular joint osteoarthritic changes are seen. No suspicious bony lesions. Visualized ribs appear intact. Soft tissues: No suspicious soft tissue calcifications. IMPRESSION: Mild acromioclavicular joint osteoarthritis. No gross acute fracture or dislocation. Dictated by: Marcus Diaz M.D. on 09/12/2019 at 13:36 Approved by: Marcus Diaz M.D. on 09/12/2019 at 13:37 [facility] Narrative Medical decision making narrative: The patient is a 74-year-old female who presents with a chief complaint of continued left shoulder pain over the past several weeks. She is neurovascularly intact, has pain upon range of motion and pressure. She felt much better after the above-stated therapies. I discussed at length the importance of following up with primary care provider. X-ray shows no acute findings other than arthritis. Discussed at length come back to the emergency department for any acute concerns, that Flexeril can be sedating, not combining Toradol with any other NSAIDs. Patient and have no questions or concerns upon discharge and state understanding of return precautions as well as follow-up care. Discharge Plan Departure Patient Disposition: Home Clinical Impression: Acute pain of left shoulder Discharge Date/Time: 09/12/19 15:33 Instructions: Shoulder Tendinopathy, How To Perform RICE (Rest, Ice, Compress, Elevate), DI for Shoulder Pain Activity Restrictions/Additional Instructions: Thank you for trusting us with your care today I sent your 2 prescriptions to [facility] in [place] As I discussed, your x-ray shows no acute fracture. This does not rule out a soft tissue injury such as a ligament or tendon injury. It is important that you follow up with primary care provider, especially if worsening or no improvement. There can be fractures that did not show up on initial x-ray. I have given you a prescription of Toradol. This is an NSAID. Do not combine it with other NSAIDs such as Aleve or ibuprofen. I suggest taking it with some food, as it can irritate your stomach. Please follow-up with primary care provider in the next few days. Please come back to the emergency department for any acute concerns. Prescriptions: New ketorolac 10 mg tablet 10 mg PO TID PRN (Reason: pain) 5 Days Qty: 14 RF: 0 cyclobenzaprine 10 mg tablet 10 mg PO TID PRN (Reason: muscle spasm) Qty: 20 RF: 0 No Action estradiol 2 MG tablet 1 mg PO DAILY Qty: 0 RF: 0 duloxetine [Cymbalta] 30 mg capsule,delayed release(DR/EC) 30 mg PO BID RF: 0 albuterol sulfate 2.5 mg /3 mL (0.083 %) solution for nebulization 3 ml Inhalation TID PRN (Reason: Shortness Of Breath) RF: 0 lisinopril 20 mg tablet 20 mg PO BID RF: 0 chlorthalidone 25 mg tablet 25 mg PO DAILY RF: 0 diltiazem HCl [Cartia XT] 120 mg Capsule,Extended Release 24hr 120 mg PO BEDTIME RF: 0 pravastatin 20 mg tablet 20 mg PO DAILY RF: 0 ondansetron 4 mg Tablet,Disintegrating 4 mg PO Q8H PRN (Reason: Nausea) RF: 0 naproxen 500 mg tablet 500 mg PO BID RF: 0 duloxetine 30 mg capsule,delayed release(DR/EC) 30 mg PO DAILY RF: 0 levocetirizine [Xyzal] 5 mg Tablet 5 mg PO BEDTIME RF: 0 magnesium hydroxide [Milk of Magnesia] 400 mg/5 mL Suspension 5 ml PO BEDTIME PRN (Reason: Constipation) RF: 0 Referrals: Shawna Arreola PA-C [Primary Care Provider] -
[2019-09-12] MEDS: CYCLOBENZAPRINE 10 MG TABLET PO (14:41)
[2019-09-12 14:47] VITALS: BP 123/76; PULSE 71; RESP 15; O2SAT 97
== END 2019-09-12 15:33 | disposition home or self-care (01) ==
PROVIDERS: Emergency Provider Nurse Practitioner Family; Family Provider Physician Assistant; PCP Physician Assistant
DX: M25.512 Pain in left shoulder (principal)
CPT/HCPCS: 73030; 96372; 99283; 99284; J1885

== ENCOUNTER → 2019-09-27 14:02 | Outpatient (CLI) | payer MEDICARE, OTHER, SELFPAY ==
--- NOTE | 2019-09-27 | DI.MRI.S_ITS ---
PROCEDURE: MR SHOULDER LT WO CON INDICATIONS: Pain in left shoulder TECHNIQUE: Noncontrast oblique coronal T2 fast spin echo with fat saturation, oblique sagittal T1 spin echo and T2 fast spin echo with fat saturation, axial T1 spin echo and T2 fast spin echo with fat saturation through the shoulder. COMPARISON: [facility], CR, XR SHOULDER LT MIN 2V, 09/12/2019, 13:17. [facility], MR, SHOULDER WITHOUT CONTRAST, 03/24/2016, 9:42. FINDINGS: Image quality: Diagnostic. Rotator cuff: There is mild bursal surface partial-thickness tearing of the supraspinatus at its insertion involving the anterior fibers. This measures approximately 0.6 cm in anteroposterior dimension. In addition, there is also minimal bursal surface partial-thickness tearing approximately 2 cm from its insertion. The infraspinatus appears intact. There is tendinopathy of the subscapularis with mild intrasubstance partial tearing distally at its insertion. The teres minor appears intact. Sagittal images demonstrate no fatty muscle atrophy. Bones and bursae: No bone marrow contusions or fractures. There is mild acromioclavicular joint degeneration. The acromion demonstrates conventional anatomy, without an os acromiale. A moderate amount of subacromial-subdeltoid bursal fluid is present. Capsule and soft tissues: In the absence of intra-articular contrast, the labrum and glenohumeral ligaments appear grossly intact. The long head of the biceps tendon demonstrates normal location and morphology. The rotator interval appears normal, without fibrosis. The coracohumeral ligament is normal in thickness. IMPRESSION: 1. Mild bursal surface partial thickness tearing of the supraspinatus tendon as described. Mild interstitial tearing also demonstrated in the distal subscapularis. No full-thickness rotator cuff tear or tendon retraction. 2. Mild acromioclavicular joint degeneration with moderate amount of subacromial/subdeltoid bursal fluid. Dictated by: Juno Palmer M.D. on 09/27/2019 at 16:15 Approved by: Juno Palmer M.D. on 09/27/2019 at 16:29
== END ==
PROVIDERS: Family Provider Physician Assistant; PCP Physician Assistant; Referring Provider Physician Assistant; Visit Provider Physician Assistant
DX: M25.512 Pain in left shoulder (principal); M75.112 Incomplete rotator cuff tear or rupture of left shoulder, not specified as traumatic; M19.012 Primary osteoarthritis, left shoulder
CPT/HCPCS: 73221

== ENCOUNTER → 2019-11-13 12:29 | Outpatient (CLI) | payer MEDICARE, OTHER, SELFPAY ==
--- NOTE | 2019-11-13 | DI.CT.S_ITS ---
PROCEDURE: CT LUMBAR SPINE WO CON INDICATIONS: Spinal stenosis, lumbar region with neurogenic claudication TECHNIQUE: Noncontrast 3 mm thick sections acquired from the T12 level to the sacrum. Sagittal and coronal reformats were constructed. For radiation dose reduction, the following was used: automated exposure control. COMPARISON: [facility], MR, MR LUMBAR SPINE WO/W CON, 07/12/2019, 13:03. [facility], CT, L-SPINE WITHOUT CONTRAST, 05/17/2013, 9:27. FINDINGS: Image quality: Excellent. Bones: There is grade 2 anterolisthesis of L5 on S1 measuring 12 mm, unchanged. Posterior laminectomy changes including removal of the spinous processes are present at L4 and L5. Prone grafting is noted. Posterior fusion is present at L4-5 with intervertebral spacer. Hardware is intact. The left pedicular screw at L5 extends beyond the margin of the vertebral body cortex. The right pedicular screw at L5 is similar although extends less beyond the cortical margin. Mild disc bulges are present at L1-L2, L2-3, L3-4. There is moderate spinal stenosis at L2-3, moderate to severe L3-4, although artifact is present at this level secondary to surgical hardware and canal is incompletely visualized. There is moderate bilateral foraminal narrowing, L2-3, moderate bilateral L3-4, likely moderate bilateral L4-5, slightly obscured by metallic artifact, mild to moderate right and moderate left at L5-S1. Overall appearance has not significantly changed compared to prior exam. Multilevel facet hypertrophy is present. Soft tissues: No retroperitoneal masses or hematomas. Visualized aorta is normal in caliber. Hiatal hernia is present. IMPRESSION: 1. Stable appearance of postsurgical changes. 2. Multilevel disc bulges, spinal stenosis and foraminal narrowing, stable as noted above. Dictated by: Sloane Lowe M.D. on 11/13/2019 at 15:39 Approved by: Sloane Lowe M.D. on 11/13/2019 at 16:13
== END ==
PROVIDERS: Family Provider Physician Assistant; PCP Physician Assistant; Referring Provider Orthopaedic Surgery; Visit Provider Orthopaedic Surgery
DX: M48.062 Spinal stenosis, lumbar region with neurogenic claudication (principal); M51.26 Other intervertebral disc displacement, lumbar region; Z98.1 Arthrodesis status
CPT/HCPCS: 72131

== ENCOUNTER → 2019-11-15 13:26 | Outpatient (CLI) | payer MEDICARE, OTHER, SELFPAY | PROVIDERS: Family Provider Physician Assistant; PCP Physician Assistant; Referring Provider Physician Assistant; Visit Provider Physician Assistant | DX: E83.52 Hypercalcemia (principal) | CPT/HCPCS: 93005; 93010 ==

== ENCOUNTER → 2019-11-27 14:03 | Outpatient (CLI) | payer MEDICARE, OTHER, SELFPAY ==
[2019-11-28 08:57] LABS: COVID19 Sendout Not Detected (Not Detect)
== END ==
PROVIDERS: Family Provider Physician Assistant; PCP Physician Assistant; Visit Provider Physician Assistant
DX: Z01.812 Encounter for preprocedural laboratory examination (principal)
CPT/HCPCS: 87635

== ENCOUNTER 2019-11-30 06:24 | Inpatient (IN) | payer MEDICARE, OTHER, SELFPAY ==
[2019-11-28 13:52] VITALS: BMI 29.2
[2019-11-30] VITALS (17 sets, daily range): BP systolic 84–156; BP diastolic 43–86; PULSE 60–98; RESP 8–20; TEMP 35.7–36.6; O2SAT 92–100; BMI 28.0
--- NOTE | 2019-11-30 | DI.RAD.S_ITS ---
PROCEDURE: XR LUMBAR SPINE 2-3V INDICATIONS: L2-3, L3-4 XLIF TECHNIQUE: 2 views of the lumbar spine were acquired. COMPARISON: None. FINDINGS: Spot fluoroscopic intraoperative images demonstrating L2-L4 paraspinal sasha and pedicle screw fixation, and interbody cage grafts. There is expected intraoperative alignment. L4 laminotomy. Dictated by: Hesham Ward M.D. on 11/30/2019 at 13:32 Approved by: Hesham Ward M.D. on 11/30/2019 at 13:34
[2019-11-30] MEDS: LACTATED RINGERS 1,000 ML 42 ML IV ×3 (07:14→11:42)
--- NOTE | 2019-11-30 07:22 | PM.PREOP ---
Pre-operative Note COVID-19 COVID-19 status: Negative Result date/Date tested (Pos, Neg/Pending): 11/27/19 Interval Note History & Physical reviewed/Exam performed by Physician: Yes Changes to H&P: No H&P completed within 30 days and has changed as indicated here:: CT scan reviewed. Solid fusion L4-S1
[2019-11-30] MEDS: CLINDAMYCIN 900 MG/50 ML PIGGYBACK 50 MG IV ×3 (07:50→23:39)
[2019-11-30] MEDS: ACETAMINOPHEN IV 1,000 MG/100 ML VIAL 400 MG IV (08:25)
[2019-11-30] MEDS: THROMBIN (RECOMBINANT) 5,000 UNIT VIAL 5000 UNIT TOP (08:39)
[2019-11-30] MEDS: SODIUM CHLORIDE 0.9% 1,000 ML, GENTAMICIN 80 MG IRR (08:39)
[2019-11-30] MEDS: BUPIVACAINE 0.5% (PF) 4 ML, MORPHINE-PF 4 MG, BUTORPHANOL 1 MG, fentaNYL 100 MCG INJ (08:40)
[2019-11-30] MEDS: VANCOMYCIN 1,000 MG VIAL 1000 MG TOP (08:40)
--- NOTE | 2019-11-30 08:43 | SUR.OPER ---
Right lateral on padded OR table. Head on pillow, gel axillary roll, pillow to support left arm. Legs flexed, pillows between legs, gel pad under down leg and ankle. Multiple passes of 3 inch cloth tape across shoulder, hip, upper and lower legs to secure patient on OR table.
--- NOTE | 2019-11-30 08:44 | SUR.OPER ---
Prone on spine table, head in foam head support, padded chest and pelvic supports, gel pad at knees, lower legs supported by pillows; nipples, genitalia and toes free of pressure, arms secured on foam padded arm boards at <90 degrees abduction. Tape over blanket at thigh secured to table.
--- NOTE | 2019-11-30 12:35 | P.OP_ITS ---
Operative Date/Time/Diagnoses Date of procedure: 11/30/19 Time of procedure: 12:35 Pre-op diagnosis: Lumbar stenosis with radiculopathy Lumbar spondylolisthesis History of lumbar fusion Post-op diagnosis: same Procedure & Clinicians Procedure: L2-3, L3-4 anterior fusion with cages L2-3, L3-4 posterior fusion L2, L3, L4 screws Removal of previous L4-5 screws Iliac crest bone graft aspirate L2-3, L3-4 laminectomies Use of microscope Placement of epidural catheter Same procedure as scheduled: Yes Indications: [age] year old female with intractable pain from stenosis. They had failed conservative management and requested operative intervention. Risks and benefits of surgery were discussed and appropriate consents were obtained. Surgeon: Andrew Esqueda Title One Reading Teacher: Aileen Cárdenas Anesthesia Type: General Operative Notes Findings: None Closure Type: primary Specimen(s): none sent Prosthetic devices, grafts, tissues, transplants, or devices: NuVasive XLIF and Reline removed Globus Protex Applied: catheter Estimated Blood Loss (mL): 100 Blood products transfused: none Procedure in detail: Patient was brought to the operating room and intubated on the table. Time-out was performed. They were then rolled over to the lateral decubitus position with the [id number]. The table was bent and they were taped down in the correct position. X-rays were taken to confirm a true AP and lateral. Preoperative antibiotics were given. The left flank was prepped and draped in standard sterile fashion. She had fairly hyper excitable neural monitoring on the left leg throughout all of this. Most likely this correlated to her left leg radiculopathy. Using fluoroscopy, a 3 cm incision was made above the iliac crest. We bluntly dissected down with Metzenbaum scissors and split the 3 abdominal muscle layers. We dissected out the retroperitoneal space and using finger guidance, brought our 1st dilator down to the psoas muscle. Using neuromonitoring and fluorosco py, we placed it through the psoas onto the L3-4 disc space in an anterior position and gradually pulled the dilator posteriorly along the disc space. We placed our guidewire and measured our depth for the retractor. We then dilated with the next 2 dilators and then placed our retractor over the dilators. Position was confirmed with fluoroscopy and the retractor was locked down to the bar. We opened up the retractor and checked with neuro monitoring. We then placed the brian and again checked with neuro monitoring. The retractor was opened further and the ALL retractor was placed. An annulotomy was performed. We then performed a complete diskectomy with ring curette, pituitary, box osteotome. A Segovia was advanced across the disc space under fluoroscopy to release the lateral annulus on the opposite side. We then used sequentially larger trials and confirmed under fluoroscopy. An XLIF cage was packed with Osteocel bone graft and impacted into the L3-4 disc space with fluoroscopy for the anterior fusion at this level. The wound was irrigated. The retractor was closed down. The brian was removed. We carefully removed the retractor with direct visualization to make sure there was no neurovascular or abdominal injury. We then went up to the L2-3 level. Again we used the dilator with neural monitoring. We opened up a retractor. An annulotomy was performed. We released the lateral side. The endplates were prepped. We trialed and then placed another cage with bone graft for the anterior fusion at L2-3. Wound was irrigated. The retractor was removed with direct visualization. Final x-rays were taken. The muscle fascia was closed, superficial tissue was closed. The skin was closed. Sterile dressing was placed. The patient was then rolled over on the well-padded prone position on the Matias table. Using fluoroscopy for localization to 10 cm incisions were made on either side of the midline. We used Bovie to come down to and split the fascia and split the muscle to expose her previous hardware. The crosslink was released and slid across to the muscle and taken out the other side. The set screws and rods were removed. We then began placing our screws. Using fluoroscopy and neural monitoring, Jamshidi needle was advanced down the left-sided pedicles of L2, L3, and L4. These were switched out to guidewires. We then brought in our retractor and did a muscle-splitting approach to expose the L3-4 space. Bovie used to clear off the soft tissue. We decorticated the transverse process with a bur We then brought in the microscope. A left-sided laminectomy was performed at L3-4 with a bur and Kerrison rongeurs. We carefully depressed the dura to reach to the opposite side and decompress the entire central canal. We cleared out the neural foramen by doing a complete facetectomy on the left. In the end the ball probe could be placed cephalad and caudally across to the opposite side in the foramen and everything was opened. We then moved the retractor up to L2-3. We decorticated the transverse process of L2 with a bur Again we did a left-sided laminectomy at L2-3 with a bur and Kerrison rongeurs. A facetectomy was performed to open up the neural foramen. We reach across the opposite side to fully decompress the canal. In the end ball probe was free moving cephalad caudally and out the foramen. An epidural catheter was primed with 4mL of 0.5% bupivacaine, 100 mcg fentanyl, 4 mg Duramorph, 1 mg Stadol. The dura was depressed under the cephalad lamina with a ball probe and the epidural catheter was gently advanced 6 cm cephalad. The wound was copiously irrigated. We then used neural monitoring and fluoroscopy to tapped over our guidewires and place our pedicle screws on the left-sided L2, L3 and L4. We measured and then placed a sasha and locked it down. A small stab incision was made over the PSIS and a Jamshidi needle was placed into the iliac crest and several mL of bone marrow was aspirated. This was mixed with our locally harvested bone graft as well as the remaining Osteocel and placed in the posterolateral gutter for posterior fusion at L2-3 and L3-4. The fascia was then closed. The epidural was then injected without resistance. The catheter was pulled and we closed more over the fascia. We then went to the right side. Again using fluoroscopy and monitoring, we placed Jamshidi down the right pedicles of L2, L3, and L4. These were switched out of her guidewires. We tapped and then placed our screws. We measured, placed a sasha, and locked down. Final x-rays were taken. The wound was irrigated. The fascia was closed. Vancomycin powder was placed in the wounds. The superficial and skin were closed. Sterile dressing was placed. The patient was then rolled over, extubated, brought to the recovery room with no complications. Complications: none Post-operative Condition: stable Disposition: PACU Plan for aftercare: Inpatient. Up with therapy.
--- NOTE | 2019-11-30 13:49 | SUR.PHASEI ---
1339 Pt awoke spontaneously, denied pain/nausea throughout PACU stay, tolerated PO intake well. Drsgs CDI. Personal bag and clothing bag to room w/patient. To room 217, bed down and locked, call light within reach. SCDs on. VSS. No further questions from RN or DISTRIBUTED GENERATION PROJECT MANAGER. Pt drowsy, asking questions about surgery. Stable.
[2019-11-30] MEDS: LACTATED RINGERS 1,000 ML 125 ML IV ×2 (14:31→23:26)
[2019-11-30] MEDS: OXYCODONE IR 5 MG TABLET PO ×2 (15:45→21:06)
[2019-11-30] MEDS: diphenhydrAMINE 25 MG TABLET PO ×2 (18:05→23:22)
[2019-11-30] MEDS: DOCUSATE 100 MG CAPSULE PO (21:04)
[2019-11-30] MEDS: lisinopriL 20 MG TABLET PO (21:04)
[2019-11-30] MEDS: SENNOSIDES 8.6 MG TABLET 17.2 MG PO (21:06)
[2019-11-30] MEDS: GABAPENTIN 300 MG CAPSULE PO (21:06)
[2019-12-01] VITALS (9 sets, daily range): BP systolic 119–138; BP diastolic 61–68; PULSE 78–102; RESP 15–20; TEMP 36.1–37.2; O2SAT 93–100
--- NOTE | 2019-12-01 00:44 | PC.NURSE ---
Pt. sleeping now after medicated with 25 mg. of Benadryl PO C/O pruritus. HR now @ 84 & saturation 95% in RA. Will cont. POC & monitor.
[2019-12-01] MEDS: PANTOPRAZOLE 40 MG TABLET PO (05:41)
[2019-12-01] MEDS: HYDROMORPHONE 0.5 MG INJ 0.2 MG IV (05:55)
[2019-12-01 06:06] LABS: Hematocrit 30.1 % (36-46); Hemoglobin 10.2 g/dL (12.0-16.0)
--- NOTE | 2019-12-01 06:27 | PC.NURSE ---
Requested low dose of Dilaudid IVP. pain level 7/10. States I don't think I ever had Dilaudid before & I don't know how my body reacts to it. I know that the Oxycodone makes me itch really bad. 0.2 mg of Dilaudid IVP admin. & pt. resting now, no C/O pruritus. Will cont. POC & monitor.
[2019-12-01] MEDS: diphenhydrAMINE 25 MG TABLET PO (07:15)
--- NOTE | 2019-12-01 07:21 | PC.NURSE ---
C/O pruritus after medicated with 0.2 mg. of Dilaudid IVP. 25 mg. of Benadryl PO admin. Day RN aware, with the reaction to Dilaudid. Will monitor.
[2019-12-01] MEDS: CHLORTHALIDONE 25 MG TABLET PO (07:38)
[2019-12-01] MEDS: lisinopriL 20 MG TABLET PO ×2 (07:38→19:13)
[2019-12-01] MEDS: LORATADINE 10 MG TABLET PO (07:38)
[2019-12-01] MEDS: DOCUSATE 100 MG CAPSULE PO ×2 (07:38→19:12)
[2019-12-01] MEDS: DULOXETINE 30 MG CAPSULE 60 MG PO (07:38)
[2019-12-01] MEDS: SODIUM CHLORIDE 0.9% FLUSH 10 ML IV ×2 (07:39→19:19)
--- NOTE | 2019-12-01 07:40 | P.PN_ITS ---
Subjective Subjective Date Patient Seen: 12/01/19 Time Patient Seen: 07:40 Interval history: She is doing well. Pain very manageable at rest but when she tries roll over more pain in the back. No leg pain currently. She has not been out of bed yet. She has been getting a lot of itching. Exam Vital Signs (past 8 hours): - 12/01/19 05:43 Temperature 96.9 F L Pulse Rate 80 Respiratory Rate 16 Blood Pressure 122/68 Pulse Oximetry 93 Oxygen Delivery Method Room Air Oxygen Flow Rate 0 Const Orientation: alert and oriented x3 Back/Spine/Pelvis Other: Minimal dry drainage. 5/5 motor both lower extremities Objective Labs Result Diagrams: 12/01/19 05:32 Labs: Laboratory Results - last 24 hr 12/01/19 05:32 Hgb 10.2 L Hct 30.1 L Assessment & Plan Post-op Postoperative Procedures: Procedures Operation Date: 11/30/19 07:45 Actual Procedures Side Surgeon p L23 & L34 laminectomies & instrumentated anterior/ posterior fusion w/ bone graft, removal of old screws at L45 Andrew Esqueda MD she is doing well. We are going to mobilize her today with physical therapy. I am going to stop her oxycodone because of the itching and switch her to hydrocodone. She gets some GI upset from all narcotics but she thinks it was manageable on the hydrocodone in the past. I will also give her prescription f or tramadol as a backup. Anticipate discharge home tomorrow or Wednesday Quality VTE Deep Vein Thrombosis/Pulmonary Embolism Present on Admission: No
[2019-12-01] MEDS: HYDROCODONE/ACET 5/325 TABLET 1 TAB PO ×3 (10:26→15:54)
--- NOTE | 2019-12-01 11:40 | PT.IIE ---
Current Diagnoses Spondylolisthesis, lumbar region (11/30/19) Spinal stenosis, lumbar region with neurogenic claudication (11/30/19) Arthrodesis status (11/30/19) Surgery Performed Operation Date: 11/30/19 07:45 Actual Procedures p L23 & L34 laminectomies & instrumentated anterior/ posterior fusion w/ bone graft, removal of old screws at L45 - Andrew Esqueda MD Surgical History (Last Updated 11/28/19 @ 14:21 by Yovana Matson RN) History of lumbar fusion (Acute 2004) Hx of hand surgery (Acute) Status post cholecystectomy Status post hysterectomy Status post rotator cuff repair Medical History (Last Updated 11/28/19 @ 14:25 by Yovana Matson RN) Depression (Acute) Hearing impaired (Acute) HLD (hyperlipidemia) (Acute) HTN (hypertension) (Acute) Skin cancer (Acute) Spinal stenosis (Acute) Physical Therapy Inpatient Evaluation/Re-Eval M1 PT/OT-IP Prior Functional Status Start: 12/01/19 13:34 Freq: NEEDED Status: Active Protocol: Document 12/01/19 11:40 AB (Rec: 12/01/19 13:49 AB [id number]) Medical Review Prior Functional Status Medical History Reviewed Yes Communication able to make needs known Mobility and Gait pt stated that she is independent with all mobilities and ambulation without AD Social History Household Members spouse Living Arrangements Mobile home Number of Floors (Floors) One Floor Number of Stairs To Enter/Railing? ramp to enter Home Environment High Toilet,Walk in Shower, Ramp Home Equipment Front Wheel Walker,Straight Cane,Shower Seat with Backrest ,Hand Held Shower,Grab Bars Near Toilet,Grab Bars In Shower Additional Social History Comment pt's friend will stay with pt until December 10 to assist her but afterwards, pt's spouse will assist pt but pt is not sure if spouse will be able to assist per physically since spouse is 11 years older than pt. M2 PT-IP Current Condition Start: 12/01/19 13:34 Freq: NEEDED Status: Active Protocol: Document 12/01/19 11:40 AB (Rec: 12/01/19 13:49 AB [id number]) Physical Therapy Current Condition Current Condition Evaluation Date 12/01/19 Treatment Diagnosis s/p L2-4 ant/post fusion/ lami ; difficulty in walking Onset Date 11/30/19 Precautions Lumbar Precautions Log Roll,No Twisting,Limit Bending,Lifting Restriction of 10 lbs,Gait Belt above Incisional Area M3 PT-IP Subjective Start: 12/01/19 13:34 Freq: NEEDED Status: Active Protocol: Document 12/01/19 11:40 AB (Rec: 12/01/19 13:49 AB [id number]) Subjective Physical Therapy Visit Type Type Initial Evaluation Visit Start Time 11:40 Visit Stop Time 12:25 Total Visit Minutes 45 Number of SHELL TRIM TOOL SETTER Visits 0 Physical Therapy Visit Comments Patient Comments pt agreeable to do PT Therapy Pain Assessment Pain When Pain Assessed At Rest Pain Present Pain Present Pain Reported Location Left Lower Back Intensity 7 Scale Used Numeric (0 - 10) Pain Management Techniques Distraction,Re-positioning M4 PT-IP Mobility and Gait Start: 12/01/19 13:34 Freq: NEEDED Status: Active Protocol: Document 12/01/19 11:40 AB (Rec: 12/01/19 13:49 AB [id number]) PT-Bed Mobility Assessment Rolling Type of Rolling Log Rolling Level of Assist Maximal Assistance Supine to Sit Supine to Sit Maximum Assistance,1 Person Assistance Sit to Supine Sit to Supine Maximum Assistance,2 Person Assistance PT-Transfer Assessment Sit to and From Stand Sit to and from Stand Maximum Assistance,1 Person Assistance,2 Person Assistance ,Use of Upper Extremities Equipment Transfer Assistive Device Gait Belt,Front Wheeled Walker Orthotic/Prosthetic Devices or Brace: No Transfers Transfer Destination Bed,Chair,Toilet Transfer Ability Level of Assist Maximum Assistance,Total Assistance,2 Person Assistance ,Use of Upper Extremities Comments Mobility Comments BP: 135/64 . educated on back precautions. completed log roll supine to sit max A and max cues. pt was able to sit on EOB SBA to CGA. pt without complaints. completed sit to stand max A and cues for quads activatiod and transferred to chair using FWW max A and max cues. (+) L knee buckling requiring max A for controlled descent to chair. positioned pt on chair . informed pt regarding d/c recommendation of SNF rehab at this time. pt's friend in room and in agreement. after a few minues, pt stated that she has to use the toilet. Asked nurse to assist. pt completed sit to stand from chair max A x 2 and max cues and completed step transfer to bedsdie commode using FWW max A x 2 and max cues. pt stated that she just feels weak. attempted sit to stand from commode to transfer back to chair requiring max A x 2 but pt is very unsteady with ( +) L knee buckling and instructed pt to sit back down . when asked if pt is feeling ok. pt stated that she feels fine but just feels weak and shaky. initiated stand pivot transfer with pt with PT in front of pt and nurse behind pt but pt unable to hold on to PT and unable to follow directs and became unresponsive but breathing.. nurse alerted charge nurse. PT elevated pt BLE. transferred pt to bed total A x 4. pt awaken. BP 111/62. positioned pt in bed. left pt with nurse. Gait Assessment Comments Gait Comments unable at this time PT-Balance Assessment Sitting Balance and Reactions Static Sitting Balance Ability Good Dynamic Sitting Balance Ability Good Standing Balance and Reactions Static Standing Balance Ability Poor Dynamic Standing Balance Ability Poor Device Used FWW M5 PT-IP Objective Assessments Start: 12/01/19 13:34 Freq: NEEDED Status: Active Protocol: Document 12/01/19 11:40 AB (Rec: 12/01/19 13:49 AB [id number]) Orientation Orientation/Cognition Level of Alertness Alert Orientation Name Safety Awareness Decreased Safety Awareness Memory Description Short Term Impaired Gross Range of Motion Lower Extremity ROM Assessment Within Functional Limits Strength Lower Extremity Strength Assessment Bilaterally Impaired Hip 3+/5 Knee 3+/5 Sensation Assessment Sensation Gross Sensation WNL Muscle Tone Muscle Tone WNL Yes M6 PT-IP Treatment Start: 12/01/19 13:34 Freq: NEEDED Status: Active Protocol: Document 12/01/19 11:40 AB (Rec: 12/01/19 13:49 AB [id number]) Physical Therapy Treatment Education Education Provided Precautions,Weight Bearing Status,Post-Op Packet,Safety M7 PT-IP Assessment and Plan Start: 12/01/19 13:34 Freq: NEEDED Status: Active Protocol: Document 12/01/19 11:40 AB (Rec: 12/01/19 13:49 AB [id number]) PT Summary Assessment and Plan Potential Rehabilitation Potential Fair Status of Condition at Evaluation Evolving Summary Impairments Pain,ROM,Strength,Balance, Coordination,Sensation,Bed Mobility,Transfers,Gait, Activity Tolerance Assessment Summary pt requiring max A x 2 with mobility at this time and unable to tolerate much activity. pt with (+) L knee buckling and unable to ambulate at this time. d/c plan depending on progress but at this time will require SNF rehab to improve strength and mobility. Goals Bed Mobility Goal Standby Assistance Transfer Goal Standby Assistance,Front Wheeled Walker Gait Goal Standby Assistance,Front Wheel Walker Gait Distance 75 Days to Meet Goals 5 Frequency of Treatment Frequency Of Treatment Twice a Day Treatment Plan Physical Therapy Treatment Plan Bed Mobility Training,Transfer Training,Gait Training, Therapeutic Exercise,Balance Retraining,Post Op Education, Discharge Planning,Hot or Cold Pack,Neuromuscular Re-ed, Coordination Retraining,Manual Therapy Recommendations To Nursing Amount of Assist Needed Mechanical Lift Discharge Recommendations PT Discharge Recommendations SNF Rehab Transportation Needs at Discharge Wheelchair/Cabulance
--- NOTE | 2019-12-01 12:30 | PC.NURSE ---
Day shift: Pt OOB w/ PT and used BSC. Voided 250ml light yellow but vcloudy. No off smell. PT and this magnetic tape typewriter operator attempted to get Pt back to chair but she became light headed and fainted. ophthalmologist Sherry called in to help. Pt placed back in bed and VS taken. All VS WNL and once Pt back in bed she was back at A&OX3. RA 98%. HR 80's. BP 111/65. Answered all questions. Legs remain elevated above head level. Family member in room for support. Pt did become emotional but said she is doing ok.
[2019-12-01] MEDS: LACTATED RINGERS 1,000 ML 125 ML IV (12:57)
[2019-12-01] MEDS: LACTATED RINGERS 1,000 ML 1000 ML IV (13:10)
--- NOTE | 2019-12-01 13:12 | PC.NURSE ---
Day shift: Informed Dr Benton via telephone about Pt's sycopal episode. He said OK to give 1000ml bolus of LR. Ordered and infusing now. Will continue to monitor Pt. She is eating lunch now and denies any nausea.
--- NOTE | 2019-12-01 14:30 | PT.IPTN ---
Current Diagnoses Spondylolisthesis, lumbar region (11/30/19) Spinal stenosis, lumbar region with neurogenic claudication (11/30/19) Arthrodesis status (11/30/19) Surgery Performed Operation Date: 11/30/19 07:45 Actual Procedures p L23 & L34 laminectomies & instrumentated anterior/ posterior fusion w/ bone graft, removal of old screws at L45 - Andrew Esqueda MD Physical Therapy Treatment Note M2 PT-IP Current Condition Start: 12/01/19 13:34 Freq: NEEDED Status: Active Protocol: Document 12/01/19 11:40 AB (Rec: 12/01/19 13:49 AB [id number]) Physical Therapy Current Condition Current Condition Evaluation Date 12/01/19 Treatment Diagnosis s/p L2-4 ant/post fusion/ lami ; difficulty in walking Onset Date 11/30/19 Precautions Lumbar Precautions Log Roll,No Twisting,Limit Bending,Lifting Restriction of 10 lbs,Gait Belt above Incisional Area M3 PT-IP Subjective Start: 12/01/19 13:34 Freq: NEEDED Status: Active Protocol: Document 12/01/19 14:30 AB (Rec: 12/01/19 17:08 AB [id number]) Subjective Physical Therapy Visit Type Type Treatment Note Visit Start Time 14:30 Visit Stop Time 15:04 Total Visit Minutes 34 Number of BUILDING MATERIALS SALES ATTENDANT Visits 0 Physical Therapy Visit Comments Patient Comments agreeable to do PT Therapy Pain Assessment Pain When Pain Assessed At Rest Pain Present Pain Present Pain Reported Location Left Lower Back Intensity 9 Scale Used Numeric (0 - 10) Pain Management Techniques Timing of Activity with Medications M4 PT-IP Mobility and Gait Start: 12/01/19 13:34 Freq: NEEDED Status: Active Protocol: Document 12/01/19 14:30 AB (Rec: 12/01/19 17:08 AB [id number]) PT-Bed Mobility Assessment Rolling Type of Rolling Log Rolling Level of Assist Moderate Assistance Supine to Sit Supine to Sit Moderate Assistance,Maximum Assistance,1 Person Assistance Sit to Supine Sit to Supine Maximum Assistance,1 Person Assistance,Bedrails PT-Transfer Assessment Sit to and From Stand Sit to and from Stand Maximum Assistance,2 Person Assistance,Use of Upper Extremities Equipment Transfer Assistive Device Gait Belt,Front Wheeled Walker Orthotic/Prosthetic Devices or Brace: No Transfers Transfer Destination Bedside Commode Transfer Technique Stand Step Pivot Transfer Ability Level of Assist Maximum Assistance,2 Person Assistance,Use of Upper Extremities Comments Mobility Comments BP: 140/76. pt completed log roll supine to sit mod to max A and max cues. pt was able to sit on EOB SBA to CGA. pt without any complaints. BP sittin/68. completed sit to stand max A x 2 and max cues and step transfer using FWW to bedside commode max A x 2 and max cues. BP: 126/64. BP after 3 min sitting on bedside commode: 114/69. BP prior to standin/57. completed sit to stand max A x 2 and max cues and completed stand step transfer using FWW max A x 2 and max cues . pt with L knee buckling requiring max A for stability cues cues for quad activation. completed sit to supine max A and max cues. BP checked: 116 /59. positioned pt in bed. call light and table placed within reach. Left pt with OT . M5 PT-IP Objective Assessments Start: 12/01/19 13:34 Freq: NEEDED Status: Active Protocol: Document 12/01/19 11:40 AB (Rec: 12/01/19 13:49 AB [id number]) Orientation Orientation/Cognition Level of Alertness Alert Orientation Name Safety Awareness Decreased Safety Awareness Memory Description Short Term Impaired Gross Range of Motion Lower Extremity ROM Assessment Within Functional Limits Strength Lower Extremity Strength Assessment Bilaterally Impaired Hip 3+/5 Knee 3+/5 Sensation Assessment Sensation Gross Sensation WNL Muscle Tone Muscle Tone WNL Yes M6 PT-IP Treatment Start: 12/01/19 13:34 Freq: NEEDED Status: Active Protocol: Document 12/01/19 14:30 AB (Rec: 12/01/19 17:08 AB [id number]) Physical Therapy Treatment Education Education Provided Precautions,Safety M7 PT-IP Assessment and Plan Start: 12/01/19 13:34 Freq: NEEDED Status: Active Protocol: Document 12/01/19 14:30 AB (Rec: 12/01/19 17:08 AB [id number]) PT Summary Assessment and Plan Potential Rehabilitation Potential Fair Summary Impairments Pain,ROM,Strength,Balance, Coordination,Bed Mobility, Transfers,Gait,Activity Tolerance Progress Towards Goals Slow Progress due to Medical Issues,Slow Progress due to Activity Tolerance Assessment Summary pt continues to require max A x 2 with mobility and was unable to tolerate much activity and continues to have L knee bucklingrequiring turner Linton. pt will require SNF rehab at this time to improve strength and function. Goals Bed Mobility Goal Standby Assistance Transfer Goal Standby Assistance,Front Wheeled Walker Gait Goal Standby Assistance,Front Wheel Walker Gait Distance 75 Days to Meet Goals 5 Frequency of Treatment Frequency Of Treatment Twice a Day Treatment Plan Physical Therapy Treatment Plan Bed Mobility Training,Transfer Training,Gait Training, Therapeutic Exercise,Balance Retraining,Post Op Education, Discharge Planning,Hot or Cold Pack,Neuromuscular Re-ed, Coordination Retraining,Manual Therapy Recommendations To Nursing Amount of Assist Needed Mechanical Lift Discharge Recommendations PT Discharge Recommendations SNF Rehab Transportation Needs at Discharge Wheelchair/Cabulance
--- NOTE | 2019-12-01 14:39 | CM.DANOTE ---
Discharge Planning/Care Management DCP: assessment: case received, EMR reviewed and met with pt and her friend Thais. Introduced self and role. Pt is a 74 year old female who admitted yesterday for a planned spinal surgery. She is seeing PT and OT for the first time today Surgeon: Dr. Esqueda Payer: Medicare and [employer] Admission status: INPT: confirmed by UR AVELINA Alvarado. At this point PT Ruchi is recommending snf level care before pt goes home. Pt did have a fainting episode today. Her surgery was extensive. Pt confirms that her plan was for her friend Thais to stay with her for a week to help her at home as her is supportive but not well enough to provide physical assist. Both readily agree that having a snf option set up is prudent. Choice list discussed. Decision: referral to [facility] in case of need: November has accepted pt if snf is needed. will need COVID-19 test with negative result prior to snf admission. PASRR will be needed if snf: not started. Advanced directive, confirm from FAMILY Start: 11/30/19 14:26 Freq: Q24H Status: Complete Protocol: Document 11/30/19 14:30 CLL (Rec: 11/30/19 14:30 CLL [id number]) Advance Directive, confirm on record Time 14:30 Person contacted Patient Copy received No Document 12/01/19 14:32 YAD (Rec: 12/01/19 14:32 YAD [id number]) Advance Directive, confirm on record Time 14:30 Person contacted Patient Copy received No Time 14:32 Person contacted patient Copy received No CM Discharge Assessment Start: 12/01/19 14:37 Freq: Status: Active Protocol: Document 12/01/19 14:37 ITV (Rec: 12/01/19 14:38 ITV [id number]) Discharge Planning Assessment Advance Directives? No History Provided By Patient,Friend,Medical Record Prior Living Arrangements Mobile home Household Members spouse Comment 86 year old with health issues Is patient alert and oriented? Yes White board Updated in Patient Room with Yes name and ext. # of Software Quality Assurance Engineer Review Status In Process Pre-Anesthesia Assessment Start: 11/28/19 13:52 Freq: Status: Active Protocol: Document 11/28/19 13:52 CAB (Rec: 11/28/19 14:33 CAB [id number]) Pre-Anesthesia Assessment Preferred Name Shonda Patient Information Reviewed Via Phone Assessment Assessment Completed With Patient H&P Completed Within 30 Days Yes Diagnostic Results BMP/CMP,CBC,PT/INR Comment Outside labs scanned in, EKG @ 11/15/19 COVID screen @ -Negative Primary Care Provider hSawna Arreola Seen Specialist in Last 12 Months Yes Specialist Seen Police Aide,Emergency, Orthopedist Primary Language Yi Feather Stitcher Required No Height 162.56 cm Weight 77.111 kg Body Mass Index (BMI) 29.2 Hearing Ability Hard of Hearing,Use of Hearing Aid Visual Assist Contacts Dentition Type Teeth, Natural Present Barriers to Learning None Hx Anesthesia Reactions No Hx Family Anesthesia Reaction No Hx Malignant Hyperthermia No Hx Blood Transfusions Yes: r/t back surgery 2004- Autologous Hx Blood Transfusion Reaction No Anesthesia Review Requested No alcohol intake current alcohol intake frequency holidays/special occasions only Smoking Status Former smoker how long ago did patient quit smoking Quit in her 30's Substance Use Type does not use Pain Present Pain Reported Musculoskeletal Symptoms Abnormal Gait,Back Pain, Difficulty Walking,Muscle Weakness History of Falling (Recent or History of No ) Patient is completely paralyzed or No completely immobile Prosthesis or Orthotic Device Cane Mental Status Oriented to own ability Is patient on oxygen? No Does patient have PUGH/SOB No Hx Sleep Apnea No Currently Taking a Beta Catarino No Can You Climb a Flight of Stairs Without Yes SOB Hx Chest Pain No Hx SOB No Hx Syncope or Dizziness No Anti-Coagulant Therapy No Has a Hot Baller No Cardiac Testing No Hx Pacemaker/ICD No Pacemaker Rep Required? No Cardiac Clearance Received Not Applicable Diet Type At Home Regular dysphagia No Gastrointestinal Symptoms Constipation,Reflux Urinary Catheter Present No Hx Urinary Self Catheterization No Diabetes No Patient No Lactating No Hx Drug Resistant Organism No Presence of External or Internal Medical Yes: Bilat hearing aids, Devices lumbar hardware Have you had any close contact with No someone diagnosed with COVID-19? Evaluation/Screening for possible COVID- Yes 19 infection completed? Marital Status Lives With spouse Prior Living Arrangements Mobile home Support System Child/Children,Friend(s), Spouse Does the Patient Have Assistance After Yes Surgery Patient Discharge Plan Description Return Home Comment Pt advised 2-3 day length of stay per surgeon Feels Safe in Current Environment Yes Been Physically Hurt or Threatened By a No Person in Current Environment Do you have thoughts of harming yourself None or others? Are you currently considering suicide? No Do you have a plan to hurt yourself or No Plan others? Do You Have Any Spiritual Beliefs That No May Affect Your HC Choices? Do You Have Any Cultural Practices That No May Affect Your HC Choices? Comment Hinduism Who Can We Speak to About Patient's Care Family, friends Identifying Code for Release of Patient Declines to issue Information Health Care Proxy/Next of Kin Arianne (daughter) Mendoza ( ) Health Care Proxy Phone Number Arianne: [phone] Bill: [phone] Emergency Contact Name Arianne (daughter) Mendoza ( ) Emergency Contact Phone Number Arianne: [phone] Bill: [phone] Advance Directives? No Power of Electricity Trader No PAC Instructions Durable medical equipment, Medications to take/avoid, Nasal antibiotic,No ETOH/ petroleum product on skin DOS, NPO,Post-op transportation,Pre -surgical wash,Sturdy shoes/ comfortable clothes,Do not bring valuables and remove jewelry
--- NOTE | 2019-12-01 15:34 | OT.IP.EVAL ---
Current Diagnoses Spondylolisthesis, lumbar region (11/30/19) Spinal stenosis, lumbar region with neurogenic claudication (11/30/19) Arthrodesis status (11/30/19) Surgery Performed Operation Date: 11/30/19 07:45 Actual Procedures p L23 & L34 laminectomies & instrumentated anterior/ posterior fusion w/ bone graft, removal of old screws at L45 - Andrew Esqueda MD Past Medical History (Last Updated 11/28/19 @ 14:25 by Yovana Matson RN) Depression (Acute) Hearing impaired (Acute) HLD (hyperlipidemia) (Acute) HTN (hypertension) (Acute) Skin cancer (Acute) Spinal stenosis (Acute) Surgical History (Last Updated 11/28/19 @ 14:21 by Yovana Matson RN) History of lumbar fusion (Acute 2004) Hx of hand surgery (Acute) Status post cholecystectomy Status post hysterectomy Status post rotator cuff repair Occupational Therapy Inpatient Evaluation/Re-Eval M2 OT-IP Current Condition Start: 12/01/19 15:15 Freq: Status: Active Protocol: Document 12/01/19 14:25 [facility] (Rec: 12/01/19 15:34 [facility] [id number]) Occupational Therapy Current Condition Current Condition Evaluation Date 12/01/19 Treatment Diagnosis Lumbar stenosis, S/P L2-3, L3- 4 lami Diagnosis Onset Date 11/30/19 Post Operative Precautions Lumbar Precautions Log Roll,No Twisting,Limit Bending,Lifting Restriction of 10 lbs,Gait Belt above Incisional Area Weight Bearing Status Weight Bearing Status Weight Bear as Tolerated M3 OT- IP Subjective and Pain Start: 12/01/19 15:15 Freq: Status: Active Protocol: Document 12/01/19 14:25 [facility] (Rec: 12/01/19 15:34 [facility] [id number]) OT- Subjective Occupational Therapy Visit Type Type Initial Evaluation Visit Start Time 14:25 Visit Stop Time 15:11 Total Visit Minutes 46 Occupational Therapy Visit Comments Patient Comments Pt agreeable to get up. Pt's friend and PT present Pt needing extensive skilled assist for the transfer and mobility needs. Pt states prior to surgery cut her toe nail and accidentally cut the skin and noted redness but not bleeding. Nurse aware and states okay to wash and place a bandage on her toe. Patient/Caregiver Goals To go home pending on her progress. OT Pain Assessment Pain When Pain Assessed During Mobility Pain Present Pain Present Pain Reported M4 OT- IP ADL's Start: 12/01/19 15:15 Freq: Status: Active Protocol: Document 12/01/19 14:25 [facility] (Rec: 12/01/19 15:34 [facility] [id number]) OT [id number] Comments OT Self-Feeding Comments Not at meal time. OT ADL-Grooming Comments OT Grooming Comments Pt states did prior. Educated when able to stand at the sink best to bend at her hips or spit into a cup. At this time pt will have to do grooming from seated position. OT ADL-Dressing General Eval Lower Body Dressing Ability Maximum Assistance Areas Needing Assistance Socks Comments OT Dressing Comments Began to educated on LB dressing equipment. OT ADL-Toileting Comments OT Toileting Comments At this time, best to use bed gonzalez or use of mechanical lift to get her to the C. Educated when able ,will have to stand to be able to wipe to best follow her back precautions. OT ADL-Bathing Comments OT Bathing Comments NOt at this time. M5 OT- IP IADL's Start: 12/01/19 15:15 Freq: Status: Active Protocol: Document 12/01/19 14:25 [facility] (Rec: 12/01/19 15:34 [facility] [id number]) OT-Instrumental Activities of Daily Living Meal Preparation Meal Preparation Caregiver Provides Assist Alterations Expert Alterations Expert Caregiver Provides Assist M6 OT- IP Functional Cognition Start: 12/01/19 15:15 Freq: Status: Active Protocol: Document 12/01/19 14:25 [facility] (Rec: 12/01/19 15:34 [facility] [id number]) Cognitive Factors Limiting Selfcare Function Cognitive Ability Level of Alertness Alert Patient Orientation Name,Place,Situation Attention Span Ability Capable of Focused Attention, Capable of Sustained Attention Ability to Follow Commands Able to Follow One Step Commands Safety Awareness Decreased Recall of Precautions,Decreased Ability to Apply Precautions Cognitive Comments Cognitive Assessment Comments Pt a bit groogy and needing step by step instructions to incorporate back precautions. In addition not able to recall any of the back precautions when asked. OT- Vision and Hearing OT- Hearing Assessment OT- Hearing Assessment WFL M7 OT- IP Mobility and Balance Start: 12/01/19 15:15 Freq: Status: Active Protocol: Document 12/01/19 14:25 [facility] (Rec: 12/01/19 15:34 [facility] [id number]) OT- Bed Mobility Assessment Rolling Type of Rolling Roll to Right Level of Assistance Moderate Assistance,Maximum Assistance,1 Person Assistance Supine to Sit Supine to Sit Assist Maximum Assistance,1 Person Assistance OT-Transfer Assessment Sit to and From Stand Sit to and from Stand Maximum Assistance,2 Person Assistance Transfers Transfer Ability Maximum Assistance,2 Person Assistance Technique Transfer Destination Bed,Bedside Commode Transfer Technique Stand Step Pivot Devices Transfer Assistive Devices Gait Belt,Front Wheeled Walker Comments Mobility Comments Pt MOD/MAX A to get wit upright and needing MAX A X2 assist to help block her left knee, balance, and guide the FWW. Noted pt's BP drops during change of positioning. supine 140/71, sitting 136/68 and further while sitting on BSC. OT- Balance Assessment Sitting Balance and Reactions Static Sitting Balance Ability Good Standing Balance and Reactions Static Standing Balance Ability Poor Dynamic Standing Balance Ability Poor M8 OT- IP Objective Assessments Start: 12/01/19 15:15 Freq: Status: Active Protocol: Document 12/01/19 14:25 [facility] (Rec: 12/01/19 15:34 [facility] [id number]) OT Gross Range of Motion Upper Extremity Range of Motion Assessment Within Functional Limits OT Strength Upper Extremity Strength Assessment Within Functional Limits OT-Muscle Tone Assessment Muscle Tone WNL Yes M9 OT- IP Assessment and Plan Start: 12/01/19 15:15 Freq: Status: Active Protocol: Document 12/01/19 14:25 [facility] (Rec: 12/01/19 15:34 [facility] [id number]) OT Summary Assessment and Plan Potential Rehabilitation Potential Good Analytic Complexity at Evaluation Low Summary OT Impairments Balance,Functional Cognition, Functional Mobility,Grooming, Dressing,Toileting,Bathing, Toilet Transfers,Shower Transfers,Activity Tolerance Progress Towards Goals Slow Progress due to Medical Issues,Slow Progress due to Activity Tolerance,Slow Progress due to Cognition Assessment Summary Pt low complexity and main barriers are decrease BP when up, pt's left knee marc when up and needing extensive two person assist for transfer , also needing a third person for toileting needs from [facility], and not able to recall or incorporate back precautions. At this time, amount of care for pt is too great for her family to be able to assist and would benefit from skilled rehab. Goals Grooming Goal Independent Dressing Goal Independent Toileting Goal Independent Bathing Goal Independent Toilet Transfer Goal Independent Shower Transfer Goal Independent Patient/Caregiver Education Goal Demonstrate Post-Op Precautions,Caregiver Independent Assisting Patient Days to Meet Goals 20 Frequency of Treatment Frequency Of Treatment Once a Day Treatment Plan OT Treatment Plan ADL Training,Functional Cognition Training,Functional Mobility,Patient/Family Education,Discharge Planning Other Treatment Recommendations and Next Transfer to [facility] with MODA X 2, Treatment Focus begin caregiver traiing if appropriate Discharge Recommendations OT Discharge Recommendations SNF Rehab Home Equipment Needs defer to SNF Transportation Needs at Discharge Wheelchair/Cabulance
[2019-12-01] MEDS: SENNOSIDES 8.6 MG TABLET 17.2 MG PO (19:12)
[2019-12-01] MEDS: GABAPENTIN 300 MG CAPSULE PO (19:13)
[2019-12-01] MEDS: PRAVASTATIN 20 MG TABLET PO (19:14)
--- NOTE | 2019-12-01 22:28 | PC.NURSE ---
Pt requested to have her 2100 meds at 1900 so she could sleep as long as possible until 2330 vital signs. She is A and O x 4.
--- NOTE | 2019-12-01 22:46 | PC.NURSE ---
Pt is A and O x 4, VSS. Able to sleep from 1715 to 2235. Using bedpan this shift per request. No dizziness noted. Rates px 4-710. Eating and drinking and voiding qs clear yellow. + BTs. LS clear, S1, S2. Dressing has small shadow drainage which has not worsened this shift.
[2019-12-02] VITALS (7 sets, daily range): BP systolic 95–140; BP diastolic 50–75; PULSE 75–98; RESP 16–19; TEMP 36.3–37.2; O2SAT 91–98
[2019-12-02] MEDS: HYDROCODONE/ACET 5/325 TABLET 2 TAB PO ×4 (00:27→17:43)
[2019-12-02] MEDS: PANTOPRAZOLE 40 MG TABLET PO (05:32)
[2019-12-02] MEDS: DULOXETINE 30 MG CAPSULE 60 MG PO (08:44)
[2019-12-02] MEDS: DOCUSATE 100 MG CAPSULE PO ×2 (08:44→21:06)
[2019-12-02] MEDS: LACTATED RINGERS 1,000 ML 125 ML IV (08:48)
[2019-12-02] MEDS: SODIUM CHLORIDE 0.9% FLUSH 10 ML IV ×2 (08:49→21:07)
--- NOTE | 2019-12-02 09:29 | PM.PNPO.1 ---
Subjective Subjective Date Patient Seen: 12/02/19 Time Patient Seen: 09:29 Interval history: She is having fairly rough time with pain. Pain in the back with radiation going down the left leg again. No more itching and Vicodin seems to be helping. Yesterday she was up with PT but got woozy and nearly passed out. She feels better today. Exam Vital Signs (past 8 hours): - 12/02/19 04:10 12/02/19 08:42 12/02/19 09:11 Temperature 99.0 F 97.4 F L Pulse Rate 97 H 98 H 95 H Respiratory Rate 18 16 Blood Pressure 140/70 95/52 L 113/62 Pulse Oximetry 98 94 Oxygen Delivery Method Room Air Oxygen Flow Rate 0 Const Orientation: alert and oriented x3 Back/Spine/Pelvis Other: CDI. 5/5 motor both lower extremities. Objective Labs Result Diagrams: 12/01/19 05:32 Assessment & Plan Post-op Postoperative Procedures: Procedures Operation Date: 11/30/19 07:45 Actual Procedures Side Surgeon p L23 & L34 laminectomies & instrumentated anterior/ posterior fusion w/ bone graft, removal of old screws at L45 Andrew Esqueda MD I am going to try giving her some steroids to knock down the postoperative inflammation. Hopefully this will get her pain under much better control. At this point she still maximum assist. I hope to discharge her home either tomorrow or Wednesday, depending on Quality VTE Deep Vein Thrombosis/Pulmonary Embolism Present on Admission: No
[2019-12-02] MEDS: DEXAMETHASONE 10 MG/ML VIAL IV (10:20)
--- NOTE | 2019-12-02 11:03 | CM.DPC ---
Addendum entered by Khushbu Terrazas R.N. 12/02/19 14:40: Met with patient's daughter, Arianne, and patient in room. Confirmed that she will be going to [facility]. Patient had originally planned on going home with her friend from [place] to help, but is needing more assist, than friend can provide. Her friend will plan on visiting patient tomorrow. Daughter, Arianne is hoping to be called if patient gets discharged tomorrow. Her phone number is: [phone] Original Note: DCP Cont: Checked in with patient in her room. Daughter was present. Patient was sitting in bed, alert and oriented. Introduced self and role. Discussed discharge planning, and going to [facility]. Is willing to go over to [facility] if needed, for she resides with her elderly . Patient had worked with therapy yesterday, but became weak, and her knees buckled. She plans to work with them today. P: DCP to continue to follow patient. Spoke to Rozina in admissions at [facility]. Confirmed that they can accept tomorrow pending COVID, which will need to be done. Discharge tomorrow will also depend upon how she is doing medically. Khushbu Terrazas RN/Corporate Sales Trainer
--- NOTE | 2019-12-02 11:20 | PT.IPTN ---
Current Diagnoses Spondylolisthesis, lumbar region (11/30/19) Spinal stenosis, lumbar region with neurogenic claudication (11/30/19) Arthrodesis status (11/30/19) Surgery Performed Operation Date: 11/30/19 07:45 Actual Procedures p L23 & L34 laminectomies & instrumentated anterior/ posterior fusion w/ bone graft, removal of old screws at L45 - Andrew Esqueda MD Physical Therapy Treatment Note M2 PT-IP Current Condition Start: 12/01/19 13:34 Freq: NEEDED Status: Active Protocol: Document 12/01/19 11:40 AB (Rec: 12/01/19 13:49 AB [id number]) Physical Therapy Current Condition Current Condition Evaluation Date 12/01/19 Treatment Diagnosis s/p L2-4 ant/post fusion/ lami ; difficulty in walking Onset Date 11/30/19 Precautions Lumbar Precautions Log Roll,No Twisting,Limit Bending,Lifting Restriction of 10 lbs,Gait Belt above Incisional Area M3 PT-IP Subjective Start: 12/01/19 13:34 Freq: NEEDED Status: Active Protocol: Document 12/02/19 11:20 AB (Rec: 12/02/19 12:41 AB [id number]) Subjective Physical Therapy Visit Type Type Treatment Note Visit Start Time 11:20 Visit Stop Time 11:58 Total Visit Minutes 38 Number of HEAD ANIMAL KEEPER Visits 0 Physical Therapy Visit Comments Patient Comments pt agreeable to do PT Therapy Pain Assessment Pain When Pain Assessed At Rest Pain Present Pain Present Pain Reported Location Back Intensity 6 Scale Used Numeric (0 - 10) Pain Management Techniques Apply Cold,Modification of Treatment,Re-positioning, Timing of Activity with Medications M4 PT-IP Mobility and Gait Start: 12/01/19 13:34 Freq: NEEDED Status: Active Protocol: Document 12/02/19 11:20 AB (Rec: 12/02/19 12:41 AB [id number]) PT-Bed Mobility Assessment Rolling Type of Rolling Log Rolling Level of Assist Moderate Assistance Supine to Sit Supine to Sit Moderate Assistance,Maximum Assistance,1 Person Assistance PT-Transfer Assessment Sit to and From Stand Sit to and from Stand Moderate Assistance,Maximum Assistance,1 Person Assistance ,Use of Upper Extremities Equipment Transfer Assistive Device Gait Belt,Front Wheeled Walker Orthotic/Prosthetic Devices or Brace: No Transfers Transfer Destination Chair Transfer Technique Stand Step Pivot Transfer Ability Level of Assist Moderate Assistance,Maximum Assistance,1 Person Assistance ,Use of Upper Extremities Comments Mobility Comments BP: 115/62. pt completed log roll bed mobility supine to sit mod to max A and max cues . pt was able to sit on EOB SBA. BP: 127/67. pt without c/o dizziness/lightheadedness. BP after 2 mins: 107/51. BP checked prior to standin/58. completed sit to stand mod to max A and max cues. cued for L quad activation. L knee still tends to give up slightly but pt able to correct when cued. BP in standin/65. pt remained standing for 3 min and BP: 121/62. pt completed stand step transfer using FWW to chair mod to max A and cues and another person CGA only for safety. BP after transfer 112/58. pt agreed to do ambulation. completed sit to stand from chair mod to max A and ambulated ~ 10 ft using FWW mod to max A and OT providing CGA for safety and a chair follow. BP in sitting after ambulation: 105/62. positioned pt in chair. call light and table placed within reach. ice pack provided. BP at end of tx session: 120/68 Gait Assessment Gait Gait Assistance Required: Moderate Assistance,Maximum Assistance,1 Person Assist Distance (Feet) 10 Able to Maintain Weight Bearing Status Yes During Gait Assistive Devices Assistive Device Gait Belt,Front Wheeled Walker Orthotic/Prosthetic Devices or Brace: No Gait Deviations General Gait Pattern Decreased Stride Length, Decreased Feet Clearance,Step- to Gait Factors Limiting Gait Function Factors Limiting Gait Function Decreased Activity Tolerance, Decreased Strength,Difficulty Following Directions,Limited Range of Motion,Pain,Poor Balance,Poor Safety Awareness Comments Gait Comments pls refer to mobility section for details M5 PT-IP Objective Assessments Start: 12/01/19 13:34 Freq: NEEDED Status: Active Protocol: Document 12/01/19 11:40 AB (Rec: 12/01/19 13:49 AB [id number]) Orientation Orientation/Cognition Level of Alertness Alert Orientation Name Safety Awareness Decreased Safety Awareness Memory Description Short Term Impaired Gross Range of Motion Lower Extremity ROM Assessment Within Functional Limits Strength Lower Extremity Strength Assessment Bilaterally Impaired Hip 3+/5 Knee 3+/5 Sensation Assessment Sensation Gross Sensation WNL Muscle Tone Muscle Tone WNL Yes M6 PT-IP Treatment Start: 12/01/19 13:34 Freq: NEEDED Status: Active Protocol: Document 12/02/19 11:20 AB (Rec: 12/02/19 12:41 AB [id number]) Physical Therapy Treatment Education Education Provided Precautions,Safety M7 PT-IP Assessment and Plan Start: 12/01/19 13:34 Freq: NEEDED Status: Active Protocol: Document 12/02/19 11:20 AB (Rec: 12/02/19 12:41 AB [id number]) PT Summary Assessment and Plan Potential Rehabilitation Potential Good Summary Impairments Pain,ROM,Strength,Balance, Coordination,Sensation,Tone, Cognition,Bed Mobility, Transfers,Gait,Activity Tolerance Progress Towards Goals Slow Progress due to Pain,Slow Progress due to Medical Issues Assessment Summary pt progressing slowly but continues to require mod to max A for all mobilities and another CGA for safety. BP still tends to decrease with upright activities. pt does not c/o any symptoms when BP decreases but has (+) weakness and tremors and also slow responses to questions and instructions. pt continues to have decrease activity tolerance and c/o increase back pain affecting mobility independence. pt will require SNF rehab to improve mobility and function. Goals Bed Mobility Goal Standby Assistance Transfer Goal Standby Assistance,Front Wheeled Walker Gait Goal Standby Assistance,Front Wheel Walker Gait Distance 75 Days to Meet Goals 5 Frequency of Treatment Frequency Of Treatment Twice a Day Treatment Plan Physical Therapy Treatment Plan Bed Mobility Training,Transfer Training,Gait Training, Therapeutic Exercise,Balance Retraining,Post Op Education, Discharge Planning,Hot or Cold Pack,Neuromuscular Re-ed, Coordination Retraining,Manual Therapy Recommendations To Nursing Amount of Assist Needed Mechanical Lift Discharge Recommendations PT Discharge Recommendations SNF Rehab Transportation Needs at Discharge Wheelchair/Cabulance
--- NOTE | 2019-12-02 11:58 | OT.IP.TRT ---
Current Diagnoses Spondylolisthesis, lumbar region (11/30/19) Spinal stenosis, lumbar region with neurogenic claudication (11/30/19) Arthrodesis status (11/30/19) Surgery Performed Operation Date: 11/30/19 07:45 Actual Procedures p L23 & L34 laminectomies & instrumentated anterior/ posterior fusion w/ bone graft, removal of old screws at L45 - Andrew Esqueda MD Occupational Therapy Treatment Note M2 OT-IP Current Condition Start: 12/01/19 15:15 Freq: Status: Active Protocol: Document 12/01/19 14:25 [facility] (Rec: 12/01/19 15:34 [facility] [id number]) Occupational Therapy Current Condition Current Condition Evaluation Date 12/01/19 Treatment Diagnosis Lumbar stenosis, S/P L2-3, L3- 4 lami Diagnosis Onset Date 11/30/19 Post Operative Precautions Lumbar Precautions Log Roll,No Twisting,Limit Bending,Lifting Restriction of 10 lbs,Gait Belt above Incisional Area Weight Bearing Status Weight Bearing Status Weight Bear as Tolerated M3 OT- IP Subjective and Pain Start: 12/01/19 15:15 Freq: Status: Active Protocol: Document 12/02/19 12:20 [facility] (Rec: 12/02/19 12:32 [facility] [email or web address]) OT- Subjective Occupational Therapy Visit Type Type Progress Note Visit Start Time 11:20 Visit Stop Time 11:58 Total Visit Minutes 38 Notes cotreat with PT d/t hx of low BP OT Pain Assessment Pain When Pain Assessed At Rest Pain Present Pain Present Pain Reported Location Back Intensity 6 Scale Used Numeric (0 - 10) Management Techniques Modification of Treatment, Timing of Activity with Medications M4 OT- IP ADL's Start: 12/01/19 15:15 Freq: Status: Active Protocol: Document 12/02/19 12:20 [facility] (Rec: 12/02/19 12:32 CGR [id number]) OT [id number] Comments OT Self-Feeding Comments not meal time OT ADL-Grooming General Evaluation Grooming Ability Standby Assistance Areas Needing Assistance Combing/Brushing Hair,Face Washing Comments OT Grooming Comments Seated EOB OT ADL-Oral Care Comments Oral Care Comments Not performed OT ADL-Dressing General Eval Lower Body Dressing Ability Maximum Assistance Areas Needing Assistance Socks OT ADL-Toileting Comments OT Toileting Comments Not performed OT ADL-Bathing Comments OT Bathing Comments not performed M5 OT- IP IADL's Start: 12/01/19 15:15 Freq: Status: Active Protocol: Document 12/01/19 14:25 [facility] (Rec: 12/01/19 15:34 [facility] [id number]) OT-Instrumental Activities of Daily Living Meal Preparation Meal Preparation Caregiver Provides Assist Armature Straightener Armature Straightener Caregiver Provides Assist M6 OT- IP Functional Cognition Start: 12/01/19 15:15 Freq: Status: Active Protocol: Document 12/01/19 14:25 [facility] (Rec: 12/01/19 15:34 [facility] [id number]) Cognitive Factors Limiting Selfcare Function Cognitive Ability Level of Alertness Alert Patient Orientation Name,Place,Situation Attention Span Ability Capable of Focused Attention, Capable of Sustained Attention Ability to Follow Commands Able to Follow One Step Commands Safety Awareness Decreased Recall of Precautions,Decreased Ability to Apply Precautions Cognitive Comments Cognitive Assessment Comments Pt a bit groogy and needing step by step instructions to incorporate back precautions. In addition not able to recall any of the back precautions when asked. OT- Vision and Hearing OT- Hearing Assessment OT- Hearing Assessment WFL M7 OT- IP Mobility and Balance Start: 12/01/19 15:15 Freq: Status: Active Protocol: Document 12/02/19 12:20 [facility] (Rec: 12/02/19 12:32 [facility] [email or web address]) OT- Bed Mobility Assessment Rolling Level of Assistance Moderate Assistance,Maximum Assistance,1 Person Assistance Supine to Sit Supine to Sit Assist Moderate Assistance,Maximum Assistance,1 Person Assistance Scooting Scooting to Edge of Bed Standby Assistance OT-Transfer Assessment Sit to and From Stand Sit to and from Stand Moderate Assistance Transfers Transfer Ability Moderate Assistance,Maximum Assistance Technique Transfer Destination Bed,Chair Transfer Technique Stand Step Pivot Devices Transfer Assistive Devices Gait Belt,Front Wheeled Walker Comments Mobility Comments Orthostatics obtained. See P.T . note for specifics. OT- Gait Assessment Gait Gait Assistance Required: Moderate Assistance,Maximum Assistance,1 Person Assist Assistive Devices Assistive Device Gait Belt,Front Wheeled Walker Comments Gait Ability Comments second person assist for safety d/t pt does not have symptoms prior to passing out. 3rd person for chair follow. OT- Balance Assessment Sitting Balance and Reactions Static Sitting Balance Ability Good M8 OT- IP Objective Assessments Start: 12/01/19 15:15 Freq: Status: Active Protocol: Document 12/01/19 14:25 [facility] (Rec: 12/01/19 15:34 [facility] [id number]) OT Gross Range of Motion Upper Extremity Range of Motion Assessment Within Functional Limits OT Strength Upper Extremity Strength Assessment Within Functional Limits OT-Muscle Tone Assessment Muscle Tone WNL Yes M9 OT- IP Assessment and Plan Start: 12/01/19 15:15 Freq: Status: Active Protocol: Document 12/02/19 12:20 [facility] (Rec: 12/02/19 12:32 [facility] [id number]) OT Summary Assessment and Plan Potential Rehabilitation Potential Good Analytic Complexity at Evaluation Low Summary OT Impairments Balance,Functional Cognition, Functional Mobility,Grooming, Dressing,Toileting,Bathing, Toilet Transfers,Shower Transfers,Activity Tolerance Progress Towards Goals Slow Progress due to Medical Issues,Slow Progress due to Activity Tolerance,Slow Progress due to Cognition Assessment Summary Pt presents with fluctuating BP with mobility and buckling LLE. Pt will benefit from continued therapy services and recommendation is for d/c to SNF d/t weakness, endurance, and safety. Goals Grooming Goal Independent Dressing Goal Independent Toileting Goal Independent Bathing Goal Independent Toilet Transfer Goal Independent Shower Transfer Goal Independent Patient/Caregiver Education Goal Demonstrate Post-Op Precautions,Caregiver Independent Assisting Patient Days to Meet Goals 19 Frequency of Treatment Frequency Of Treatment Once a Day Treatment Plan OT Treatment Plan ADL Training,Functional Cognition Training,Functional Mobility,Patient/Family Education,Discharge Planning Other Treatment Recommendations and Next Transfer to [facility] with MODA X 2, Treatment Focus begin caregiver traiing if appropriate Discharge Recommendations OT Discharge Recommendations SNF Rehab Home Equipment Needs defer to SNF Transportation Needs at Discharge Wheelchair/Cabulance
--- NOTE | 2019-12-02 12:47 | PT.IPTN ---
Current Diagnoses Spondylolisthesis, lumbar region (11/30/19) Spinal stenosis, lumbar region with neurogenic claudication (11/30/19) Arthrodesis status (11/30/19) Surgery Performed Operation Date: 11/30/19 07:45 Actual Procedures p L23 & L34 laminectomies & instrumentated anterior/ posterior fusion w/ bone graft, removal of old screws at L45 - Andrew Esqueda MD Physical Therapy Treatment Note M2 PT-IP Current Condition Start: 12/01/19 13:34 Freq: NEEDED Status: Active Protocol: Document 12/01/19 11:40 AB (Rec: 12/01/19 13:49 AB [id number]) Physical Therapy Current Condition Current Condition Evaluation Date 12/01/19 Treatment Diagnosis s/p L2-4 ant/post fusion/ lami ; difficulty in walking Onset Date 11/30/19 Precautions Lumbar Precautions Log Roll,No Twisting,Limit Bending,Lifting Restriction of 10 lbs,Gait Belt above Incisional Area M3 PT-IP Subjective Start: 12/01/19 13:34 Freq: NEEDED Status: Active Protocol: Document 12/02/19 12:47 AB (Rec: 12/02/19 14:25 AB [id number]) Subjective Physical Therapy Visit Type Type Treatment Note Visit Start Time 12:47 Visit Stop Time 13:12 Total Visit Minutes 25 Number of SIGNALS ANALYST Visits 0 Physical Therapy Visit Comments Patient Comments nurse requested assist with toilet transfers Therapy Pain Assessment Pain When Pain Assessed At Rest Pain Present Pain Present Pain Reported Location Back Scale Used pain scale not stated Pain Management Techniques Apply Cold,Re-positioning, Timing of Activity with Medications M4 PT-IP Mobility and Gait Start: 12/01/19 13:34 Freq: NEEDED Status: Active Protocol: Document 12/02/19 12:47 AB (Rec: 12/02/19 14:25 AB [id number]) PT-Transfer Assessment Sit to and From Stand Sit to and from Stand Maximum Assistance,1 Person Assistance,Use of Upper Extremities Equipment Transfer Assistive Device Gait Belt,Front Wheeled Walker Orthotic/Prosthetic Devices or Brace: No Transfers Transfer Destination Bedside Commode Transfer Ability Level of Assist Moderate Assistance,Maximum Assistance,1 Person Assistance ,Use of Upper Extremities Comments Mobility Comments BP: 118/65 completed sit to stand from chair x 2 attempts before able to successfully stand requirin max A and max cues. completed step transfer using FWW to bedside commode mod to max A and max cues for L quads activation. completed sit to stand from bedside commode max A and max cues and transferred back to chair using FWW mod to max and max cues. pt agreed to do ambulation and completed ~ 22 ft using FWW mod to max A and another person CGA and chair follow. pt requires cues and continues to have slow instruction processing affecting mobility with increase reaction time needs to complete tasks. pt wanted to stay up on chair. positioned on chair. call light and table placed within reach. Gait Assessment Gait Gait Assistance Required: Moderate Assistance,Maximum Assistance Distance (Feet) 22 Able to Maintain Weight Bearing Status Yes During Gait Assistive Devices Assistive Device Gait Belt,Front Wheeled Walker Orthotic/Prosthetic Devices or Brace: No Gait Deviations General Gait Pattern Antalgic,Decreased Stride Length,Decreased Feet Clearance Factors Limiting Gait Function Factors Limiting Gait Function Decreased Activity Tolerance, Decreased Strength,Difficulty Following Directions,Limited Range of Motion,Pain,Poor Balance,Poor Safety Awareness Comments Gait Comments pls refer to mobility section for details; pt continues to require constant cues and assist to prevent L knee buckling; seems to be getting better with controlling L knee but still needs assistance as pt is not consistent and has difficulty with following instructions. M5 PT-IP Objective Assessments Start: 12/01/19 13:34 Freq: NEEDED Status: Active Protocol: Document 12/01/19 11:40 AB (Rec: 12/01/19 13:49 AB [id number]) Orientation Orientation/Cognition Level of Alertness Alert Orientation Name Safety Awareness Decreased Safety Awareness Memory Description Short Term Impaired Gross Range of Motion Lower Extremity ROM Assessment Within Functional Limits Strength Lower Extremity Strength Assessment Bilaterally Impaired Hip 3+/5 Knee 3+/5 Sensation Assessment Sensation Gross Sensation WNL Muscle Tone Muscle Tone WNL Yes M6 PT-IP Treatment Start: 12/01/19 13:34 Freq: NEEDED Status: Active Protocol: Document 12/02/19 12:47 AB (Rec: 12/02/19 14:25 AB [id number]) Physical Therapy Treatment Education Education Provided Safety M7 PT-IP Assessment and Plan Start: 12/01/19 13:34 Freq: NEEDED Status: Active Protocol: Document 12/02/19 12:47 AB (Rec: 12/02/19 14:25 AB [id number]) PT Summary Assessment and Plan Potential Rehabilitation Potential Fair Summary Impairments Pain,ROM,Strength,Balance, Coordination,Sensation,Tone, Cognition,Bed Mobility, Transfers,Gait,Activity Tolerance Progress Towards Goals Slow Progress due to Pain,Slow Progress due to Medical Issues,Slow Progress due to Activity Tolerance Assessment Summary pt continues to require max A with mobility but pt is slowly improving able to ambulate more today but still limited; continues to require max cues and assist to stabilize L knee and has difficulty with following instruction with slow execution affecting safety and mobility independence. pt will require SNF rehab to improve strength and mobility independence. Goals Bed Mobility Goal Standby Assistance Transfer Goal Standby Assistance,Front Wheeled Walker Gait Goal Standby Assistance,Front Wheel Walker Gait Distance 75 Days to Meet Goals 5 Frequency of Treatment Frequency Of Treatment Twice a Day Treatment Plan Physical Therapy Treatment Plan Bed Mobility Training,Transfer Training,Gait Training, Therapeutic Exercise,Balance Retraining,Post Op Education, Discharge Planning,Hot or Cold Pack,Neuromuscular Re-ed, Coordination Retraining,Manual Therapy Recommendations To Nursing Amount of Assist Needed 2 Person Assist Discharge Recommendations PT Discharge Recommendations SNF Rehab Transportation Needs at Discharge Wheelchair/Cabulance
--- NOTE | 2019-12-02 14:45 | PC.NURSE ---
Shift summary: Patient states she feels improvements today with pain and strength. Patient worked with PT, and able to ambulate in the room and up to chair (2 assist for safety with walker and gait belt). Spontaneous void without difficulty today. Tolerating meals, denies n/v/upset stomach, SLIV as patient now taking in adequate oral fluids. Incisions to back and left side site remain intact with gauze and tegaderm in place, dry pink shadow drainage noted unchanged. Moving all extremities. Pain management improved today per patient, using norco prn as charted, as well as repositioning and ice. Patient currently resting in bed, with call light within reach.
[2019-12-02] MEDS: DEXAMETHASONE 4 MG/ML VIAL IV ×2 (15:55→22:27)
[2019-12-02] MEDS: lisinopriL 20 MG TABLET PO (21:06)
[2019-12-02] MEDS: SENNOSIDES 8.6 MG TABLET 17.2 MG PO (21:06)
[2019-12-02] MEDS: PRAVASTATIN 20 MG TABLET PO (21:06)
[2019-12-02] MEDS: GABAPENTIN 300 MG CAPSULE PO (21:07)
--- NOTE | 2019-12-02 22:09 | PC.NURSE ---
pt reports her pain improved with decadron. 1pa to the BSC. scds bilat feel. no n/v. no light headed or dizziness when she ambulated. last BM was 17, no abd discomfort. call ligth in reach. bed alarm active.
[2019-12-03] MEDS: HYDROCODONE/ACET 5/325 TABLET 2 TAB PO (01:49)
[2019-12-03 03:15] VITALS: BP 134/77; PULSE 77; RESP 20; TEMP 36.7; O2SAT 93
[2019-12-03] MEDS: DEXAMETHASONE 4 MG/ML VIAL IV ×2 (04:09→10:24)
[2019-12-03] MEDS: PANTOPRAZOLE 40 MG TABLET PO (06:31)
[2019-12-03 07:00] VITALS: BP 125/72; PULSE 74; RESP 18; TEMP 36; O2SAT 95
[2019-12-03] MEDS: HYDROCODONE/ACET 5/325 TABLET 1 TAB PO (08:40)
[2019-12-03] MEDS: DOCUSATE 100 MG CAPSULE PO (08:40)
[2019-12-03] MEDS: DULOXETINE 30 MG CAPSULE 60 MG PO (08:40)
[2019-12-03] MEDS: SODIUM CHLORIDE 0.9% FLUSH 10 ML IV (08:41)
[2019-12-03 11:35] VITALS: BP 144/74; PULSE 99; RESP 18; TEMP 36.4; O2SAT 97
--- NOTE | 2019-12-03 12:10 | PT.IPTN ---
Current Diagnoses Spondylolisthesis, lumbar region (11/30/19) Spinal stenosis, lumbar region with neurogenic claudication (11/30/19) Arthrodesis status (11/30/19) Surgery Performed Operation Date: 11/30/19 07:45 Actual Procedures p L23 & L34 laminectomies & instrumentated anterior/ posterior fusion w/ bone graft, removal of old screws at L45 - Andrew Esqueda MD Physical Therapy Treatment Note M2 PT-IP Current Condition Start: 12/01/19 13:34 Freq: NEEDED Status: Active Protocol: Document 12/01/19 11:40 AB (Rec: 12/01/19 13:49 AB [id number]) Physical Therapy Current Condition Current Condition Evaluation Date 12/01/19 Treatment Diagnosis s/p L2-4 ant/post fusion/ lami ; difficulty in walking Onset Date 11/30/19 Precautions Lumbar Precautions Log Roll,No Twisting,Limit Bending,Lifting Restriction of 10 lbs,Gait Belt above Incisional Area M3 PT-IP Subjective Start: 12/01/19 13:34 Freq: NEEDED Status: Active Protocol: Document 12/03/19 10:23 RAYMOND (Rec: 12/03/19 12:09 RAYMOND [id number]) Subjective Physical Therapy Visit Type Type Treatment Note Visit Start Time 10:23 Visit Stop Time 10:46 Total Visit Minutes 23 Number of CHAINSTITCH FELLED SEAM OPERATOR Visits 1 Physical Therapy Visit Comments Patient Comments Pt wanting to go home. Willing to work with PT. States her pain is much less than yesterday Therapy Pain Assessment Pain When Pain Assessed At Rest Pain Present Pain Present Pain Reported M4 PT-IP Mobility and Gait Start: 12/01/19 13:34 Freq: NEEDED Status: Active Protocol: Document 12/03/19 10:23 RAYMOND (Rec: 12/03/19 12:09 RAYMOND [id number]) PT-Transfer Assessment Sit to and From Stand Sit to and from Stand Standby Assistance,Use of Upper Extremities Equipment Transfer Assistive Device Gait Belt,Front Wheeled Walker Orthotic/Prosthetic Devices or Brace: No Transfers Transfer Destination Chair Transfer Ability Level of Assist Standby Assistance,Use of Upper Extremities Comments Mobility Comments Pt in chair upon arrival. Friend in room also. Sit<> stand SBA using UEs. After ambulating in hallway pt returned to room and performed several mini squats prior to sitting in the chair. No pain or leg fatigue with squats Gait Assessment Gait Gait Assistance Required: Standby Assistance Distance (Feet) 200 Assistive Devices Assistive Device Gait Belt,Front Wheeled Walker Orthotic/Prosthetic Devices or Brace: No Gait Deviations General Gait Pattern Decreased Stride Length, Decreased Feet Clearance Factors Limiting Gait Function Factors Limiting Gait Function Decreased Activity Tolerance, Decreased Strength,Limited Range of Motion,Pain,Poor Balance,Poor Safety Awareness Comments Gait Comments Pt able to manage FWW well. Posture is erect with cues. She ambulated around the room x1 practicing turns without twisting. Pt moving very slowly in room. In hallway pt increased her pace and ambulated to end of jeter and back to room with good posture and FWW management. Returned to room and performed several mini squats before sitting into chair. Nursing in room taking vitals which all looked good. BP in 140s post ambulation M5 PT-IP Objective Assessments Start: 12/01/19 13:34 Freq: NEEDED Status: Active Protocol: Document 12/01/19 11:40 AB (Rec: 12/01/19 13:49 AB [id number]) Orientation Orientation/Cognition Level of Alertness Alert Orientation Name Safety Awareness Decreased Safety Awareness Memory Description Short Term Impaired Gross Range of Motion Lower Extremity ROM Assessment Within Functional Limits Strength Lower Extremity Strength Assessment Bilaterally Impaired Hip 3+/5 Knee 3+/5 Sensation Assessment Sensation Gross Sensation WNL Muscle Tone Muscle Tone WNL Yes M6 PT-IP Treatment Start: 12/01/19 13:34 Freq: NEEDED Status: Active Protocol: Document 12/03/19 10:23 RAYMOND (Rec: 12/03/19 12:09 [id number]) Physical Therapy Treatment Education Education Provided Precautions,Safety M7 PT-IP Assessment and Plan Start: 12/01/19 13:34 Freq: NEEDED Status: Active Protocol: Document 12/03/19 10:23 RAYMOND (Rec: 12/03/19 12:09 LJ [id number]) PT Summary Assessment and Plan Potential Rehabilitation Potential Fair Summary Impairments Pain,ROM,Strength,Balance, Coordination,Transfers,Gait, Activity Tolerance Progress Towards Goals Safe For Discharge,Goals Met Assessment Summary Pt greatly improved with mobility and pain control. Ambulation and activity tolerance have improved and pt is cautious with both. Friend in room for caregiver training to assist next week. Pt has met goals and is safe to go home Goals Bed Mobility Goal Standby Assistance Transfer Goal Standby Assistance,Front Wheeled Walker Gait Goal Standby Assistance,Front Wheel Walker Gait Distance 75 Days to Meet Goals 5 Frequency of Treatment Frequency Of Treatment Twice a Day Treatment Plan Physical Therapy Treatment Plan Bed Mobility Training,Transfer Training,Gait Training, Therapeutic Exercise,Balance Retraining,Post Op Education, Discharge Planning,Hot or Cold Pack,Neuromuscular Re-ed, Coordination Retraining,Manual Therapy Recommendations To Nursing Amount of Assist Needed 1 Person Assist Discharge Recommendations PT Discharge Recommendations Home with Assistance,Home Health Transportation Needs at Discharge Private Vehicle
--- NOTE | 2019-12-03 12:21 | PM.DS.1 ---
History of Present Illness History of Present Illness Chief complaint: Extreme Lat interbody Fusion/Laminectomy Discharge Providers Provider Date of admission: 11/30/19 06:24 Discharge Date: 12/03/19 Primary care physician: Shawna Arreola PA-C Consults: 11/30/19 13:50 Consult to Occupational Therapy Evaluate & Treat Comment: Physician Instructions: Evaluate and treat Consult to Physical Therapy Evaluate & Treat Comment: Physician Instructions: Evaluate and Treat Discharge provider: Krupa Kyle MD Summary Hospital Course Discharge Diagnosis: Lumbar spinal stenosis, lumbar fusion Hospital Course: Patient is taken the operating room she underwent a lumbar fusion. She tolerated the procedure without difficulty. She did have problems with postoperative pain management. She was mobilized with physical therapy and noted to be stable for discharge. Status at Discharge Cognitive/behavioral status at discharge: oriented Functional status at discharge: uses cane/walker Overall status at discharge: patient is progressing back to baseline Time Spent with Patient Time spent: Less than 30 minutes Exam Vital Signs (past 8 hours): - 12/03/19 07:00 12/03/19 11:35 Temperature 96.8 F L 97.5 F L Pulse Rate 74 99 H Respiratory Rate 18 18 Blood Pressure 125/72 144/74 H Pulse Oximetry 95 97 Oxygen Delivery Method Room Air Oxygen Flow Rate 0 Narrative Exam Narrative: She is resting comfortably in a chair, her abdomen soft and benign her dressings intact, she is tender to palpation along the paraspinous muscles of her lumbar spine the dressings intact. She can fire her toe flexors and extensors bilaterally and is neurologically intact distally. Calfs are soft bilaterally. Objective Labs Result Diagrams: 12/01/19 05:32 Discharge Plan Discharge Plan Patient Disposition: Home Discharge comment: Follow-up 1.5 weeks Discharge orders & Medications Prescriptions: New docusate sodium [DOK] 100 mg Capsule 100 mg PO BID PRN (Reason: constipation) Qty: 30 RF: 0 hydrocodone-acetaminophen 5-325 mg Tablet See Rx Instructions .ROUTE .COMPLEX PRN (Reason: Pain, Moderate (4-6)) Qty: 50 RF: 0 hydroxyzine pamoate 25 mg Capsule 25 mg PO Q4HR PRN (Reason: spasms) Qty: 20 RF: 0 Continued lisinopril 20 mg tablet 20 mg PO BID RF: 0 chlorthalidone 25 mg tablet 25 mg PO DAILY RF: 0 pravastatin 20 mg tablet 20 mg PO DAILY RF: 0 duloxetine 30 mg capsule,delayed release(DR/EC) 60 mg PO DAILY RF: 0 esomeprazole magnesium [Nexium] 40 mg Capsule,Delayed Release(Dr/Ec) 40 mg PO DAILY RF: 0 fexofenadine [Jazzy Allergy] 60 mg Tablet 60 mg PO DAILY RF: 0 Follow up/Referrals: Shawna Arreola PA-C [Primary Care Provider] - Discharge Health Status Multidrug resistant organism: No MDRO Diet/Activity/Treatments Diet: Diet as Tolerated Activity: Limited bend, twist, lift, 10 lb maximum. Skin/Wound/Dressing Care Report to your healthcare provider any signs of infection, such as:: chills, fever, night sweats, increased pain, unusual drainage and unusual redness Visit Report/Discharge Packet Instructions: DI for Laminectomy, DI for Prescription Opioid Use, DI for Lateral Lumbar Interbody Fusion Stand Alone Forms: Surgery Discharge Visit Report Forms: Patient Portal/API, Stroke Signs & Symptoms Discharge Data Primary Care Provider: Shawna Arreola Quality VTE Deep Vein Thrombosis/Pulmonary Embolism Present on Admission: No
--- NOTE | 2019-12-03 13:22 | CM.DPC ---
DCP Cont: Met with patient today. She stated, she feels that she can go home, her friend came in for training with P.T. Patient has been able to ambulate with her walker. Updated [facility], and spoke to Rozina. She is aware. Patient asked this window caser to call her daughter, Arianne, and let her know that she is going home today. Updated Dr. Kyle on the plan, and she signed face to face. Patient is requesting [facility]. She mentioned that she has used them before. Called and left a message with [facility] on [employer]'s cell phone, and main line, that patient is discharging today. Ordered nursing, P.T, O.T, bath aide. Friend is here from [place] and will stay with her for a week. Faxed [facility] face to face, face sheet, orders for home health, and discharge summary, indicating patient discharging home today. Patient signed IMM. P: Plan is for patient to discharge home today. Khushbu Terrazas RN/Wood Gluer
--- NOTE | 2019-12-03 15:27 | PC.NURSE ---
Discharge instructions reviewed with patient, she states understanding and has no further questions or concerns. IV dc'd intact. Dressing to back with nonadhesive and tegaderm CDI, dressing to left side CDI. Patient agrees to call office tomorrow to ensure follow up is scheduled for 10-14 days. Patient escorted out with all belongings via wheelchair to be discharged to home with her . Patient instructed to call surgeon with questions or concerns or to seek emergent care for an emergency.
== END 2019-12-03 15:29 | disposition home health service (06) | DRG 455 ==
PROVIDERS: Admitting Provider Orthopaedic Surgery; Family Provider Physician Assistant; PCP Physician Assistant; Referring Provider Physician Assistant; Visit Provider Orthopaedic Surgery
PROC: 0SG00A0 Fusion of Lumbar Vertebral Joint with Interbody Fusion Device, Anterior Approach, Anterior Column, Open Approach (ICD-10-PCS; CPT 22558; principal; 2019-11-30 07:45)
DX: M48.062 Spinal stenosis, lumbar region with neurogenic claudication (principal); M43.16 Spondylolisthesis, lumbar region; I10 Essential (primary) hypertension; M79.7 Fibromyalgia; F32.9 Major depressive disorder, single episode, unspecified; J45.909 Unspecified asthma, uncomplicated; R55 Syncope and collapse; G89.18 Other acute postprocedural pain; Z87.891 Personal history of nicotine dependence; Z01.812 Encounter for preprocedural laboratory examination; Z11.59 Encounter for screening for other viral diseases
CPT/HCPCS: 36415; 72100; 76000; 85014; 85018; 87635; 94762; 97116; 97162; 97165; 97530; 97535; C1776; J0131; J0330; J0595; J1100; J1170; J2250; J2274; J2405; J2704; J3010

== ENCOUNTER → 2019-12-29 09:05 | Outpatient (CLI) | payer MEDICARE, OTHER, SELFPAY ==
[2019-11-30 14:10] VITALS: BMI 28.0
--- NOTE | 2019-12-29 | DI.MRI.S_ITS ---
PROCEDURE: MR KNEE LT WO CON INDICATIONS: Unspecified injury of left lower leg, initial enco TECHNIQUE: Noncontrast sagittal PD fast spin echo and T2 fast spin echo with fat saturation, sagittal 3-D FLASH with fat saturation; coronal T1 spin echo and PD fast spin echo with fat saturation, and axial PD fast spin echo with fat saturation through the knee. COMPARISON: Left knee radiographs dated 12/29/2013 performed at [facility].. FINDINGS: Image quality: Excellent. Menisci: The medial and lateral menisci demonstrate normal morphology and internal signal. The meniscal root ligaments appear intact. Cruciate ligaments: The anterior and posterior cruciate ligaments appear intact. Medial structures: The medial collateral ligament appears intact. The semimembranosus tendon insertions and meniscocapsular junction appear intact. Visualized portions of the pes anserinus tendons appear normal. No abnormal bursal fluid. Lateral structures: The lateral collateral ligament, long and short heads of the biceps femoris tendon appear intact. The popliteus tendon appears intact. No signs of posterolateral corner injury. Iliotibial band appears normal. Anterior structures: The quadriceps and patellar tendons appear intact. There is mild patella sundeep. No femoral trochlear dysplasia or ventral trochlear prominence. No edema in the infrapatellar fat pad. Bones and cartilage: No bone marrow contusions or fractures. There is mild partial-thickness cartilage thinning in the weight-bearing portion of the medial and lateral femorotibial compartments without a full-thickness defect. The patellofemoral cartilage is maintained. Joint space: There is a small joint effusion. A small lobulated medial popliteal cyst is present. IMPRESSION: 1. No acute trabecular bone injury. The cruciate and collateral ligaments are intact. There is no meniscal tear. 2. Mild grade 2 cartilage thinning in the weight-bearing portions the medial and lateral femorotibial compartments without a focal cartilage defect. 3. Mild patella sundeep. 4. Small joint effusion. Small lobulated medial popliteal cyst. Dictated by: Elio Chase M.D. on 12/29/2019 at 10:00 Approved by: Elio Chase M.D. on 12/29/2019 at 10:13
== END ==
PROVIDERS: Family Provider Physician Assistant; PCP Physician Assistant; Referring Provider Physician Assistant; Visit Provider Physician Assistant
DX: S89.92XA Unspecified injury of left lower leg, initial encounter (principal); M25.462 Effusion, left knee; M71.22 Synovial cyst of popliteal space [Baker], left knee; X58.XXXA Exposure to other specified factors, initial encounter
CPT/HCPCS: 73721

== ENCOUNTER → 2020-06-12 18:54 | Outpatient (ROUT) | payer MEDICARE, OTHER, SELFPAY ==
[2019-11-30 14:10] VITALS: BMI 28.0
[2020-06-12 19:06] LABS: Add Manual Diff / Slide Review NO; Basophils Absolute Auto 100 /uL (0-100); Basophils Percent Auto 0.9 % (0-2); Eosinophils Absolute Auto 200 /uL (0-450); Hematocrit 35.1 % (36-46); Lymphocytes Absolute Auto 2800 /uL (1100-4500); Lymphocytes Percent Auto 25.9 % (25-40); Mean Corpuscular HGB Conc 31.4 % (30-36); Mean Corpuscular Hemoglobin 23.6 PG (26-34); Monocytes Absolute Auto 1000 /uL (0-900); Monocytes Percent Auto 9.1 % (3-14); Neutrophils Absolute Auto 6800 /uL (1500-7000); Neutrophils Percent Auto 62.1 % (50-75); Platelet Count 347 X10^3/uL (150-400); Red Blood Cell Count 4.68 X10^6/uL (4.0-5.2)
[2020-06-12 19:13] LABS: HEMOLYSIS < 15 (0-50); Iron 33 ug/dL (37-170)
[2020-06-12 19:14] LABS: Alanine Aminotransferase 17 IU/L (<35); Albumin 4.1 g/dL (3.5-5.0); Albumin Globulin Ratio 1.5 (1.0-2.8); Alkaline Phosphatase 105 U/L (38-126); Aspartate Aminotransferase 26 IU/L (14-36); BUN Creatinine Ratio 17.1 (6-22); Bilirubin Total 0.4 mg/dL (0.2-1.3); Blood Urea Nitrogen 14 mg/dL (7-17); Calcium 9.6 mg/dL (8.4-10.2); Carbon Dioxide 38 mmol/L (22-32); Chloride 92 mmol/L (98-107); Estimated Glomerular Filt Rate > 60.0 mL/min (>60); Globulin 2.8 g/dL (1.7-4.1); Glucose 109 mg/dL (80-110); HEMOLYSIS < 15 (0-50); Sodium 135 mmol/L (137-145); Total Protein 6.9 g/dL (6.3-8.2)
[2020-06-12 19:25] LABS: Percent Iron Saturation 8 % (15-50); Total Iron Binding Capacity 394 ug/dL (265-497); Transferrin 318 mg/dL (206-381)
[2020-06-12 19:48] LABS: Ferritin 13 ng/mL (11-264)
== END ==
PROVIDERS: Family Provider Physician Assistant; PCP Physician Assistant; Visit Provider Physician Assistant
DX: E87.6 Hypokalemia (principal); I10 Essential (primary) hypertension; R19.7 Diarrhea, unspecified; D64.9 Anemia, unspecified
CPT/HCPCS: 80053; 82728; 83540; 83550; 85025

== ENCOUNTER → 2020-08-22 15:20 | Outpatient (CLI) | payer MEDICARE, OTHER, SELFPAY ==
[2019-11-30 14:10] VITALS: BMI 28.0
--- NOTE | 2020-08-22 | DI.MRI.S_ITS ---
PROCEDURE: MR KNEE LT WO CON INDICATIONS: unspecified derangement of left knee TECHNIQUE: Noncontrast sagittal PD fast spin echo and T2 fast spin echo with fat saturation, sagittal 3-D FLASH with fat saturation; coronal T1 spin echo and PD fast spin echo with fat saturation, and axial PD fast spin echo with fat saturation through the knee. COMPARISON: CR, KNEE 3V LEFT, 12/29/2013, 12:05. [facility], MR, MR KNEE LT WO CON, 12/29/2019, 9:31. FINDINGS: Image quality: Excellent. Menisci: Linear oblique high T2 signal intensity traverses the medial meniscal body, demonstrating inferior articular surface extension, indicating oblique tearing. Lateral meniscus is intact. Cruciate ligaments: The anterior and posterior cruciate ligaments appear intact. Medial structures: The medial collateral ligament appears intact. Visualized portions of the pes anserinus tendons appear normal. No abnormal bursal fluid. Lateral structures: The lateral collateral ligament, long and short heads of the biceps femoris tendon appear intact. The popliteus tendon appears normal. Iliotibial band appears normal. Anterior structures: The quadriceps and patellar tendons appear intact. Patellar alignment is normal. No femoral trochlear dysplasia or ventral trochlear prominence. No edema in the infrapatellar fat pad. Bones and cartilage: No bone marrow contusions or fractures. Mild articular cartilage loss diffusely overlies the weight-bearing aspects of the medial and lateral compartments. Joint space: There is a small knee joint effusion and a trace Hill's cyst. Normal appearing synovial plicae are incidentally noted. IMPRESSION: 1. Small knee joint effusion and trace Hill's cyst. 2. Medial meniscal tear. Dictated by: Alejandro De M.D. on 08/22/2020 at 16:26 Approved by: Alejandro De M.D. on 08/22/2020 at 16:36
== END ==
PROVIDERS: Family Provider Physician Assistant; PCP Physician Assistant; Referring Provider Orthopaedic Surgery; Visit Provider Orthopaedic Surgery
DX: M23.92 Unspecified internal derangement of left knee (principal); S83.242A Other tear of medial meniscus, current injury, left knee, initial encounter; M25.462 Effusion, left knee
CPT/HCPCS: 73721

== ENCOUNTER → 2020-09-02 20:15 | Outpatient (ROUT) | payer MEDICARE, OTHER, SELFPAY ==
[2019-11-30 14:10] VITALS: BMI 28.0
[2020-09-02 20:46] LABS: Add Manual Diff / Slide Review NO; Basophils Absolute Auto 100 /uL (0-100); Basophils Percent Auto 0.7 % (0-2); Eosinophils Absolute Auto 100 /uL (0-450); Eosinophils Percent Auto 0.8 % (2-4); Hemoglobin 11.1 g/dL (12.0-16.0); Lymphocytes Absolute Auto 3400 /uL (1100-4500); Lymphocytes Percent Auto 21.5 % (25-40); Mean Corpuscular HGB Conc 30.8 % (30-36); Mean Corpuscular Hemoglobin 23.6 PG (26-34); Mean Corpuscular Volume 76.6 fL (80-100); Monocytes Absolute Auto 1500 /uL (0-900); Monocytes Percent Auto 9.7 % (3-14); Neutrophils Absolute Auto 10700 /uL (1500-7000); Neutrophils Percent Auto 67.3 % (50-75); Platelet Count 424 X10^3/uL (150-400); Red Cell Distribution Width 18.9 % (11.6-14.8); White Blood Cell Count 15.8 X10^3/uL (4.5-11.0)
[2020-09-02 20:47] LABS: HEMOLYSIS < 15 (0-50); Iron 32 ug/dL (37-170)
[2020-09-02 20:48] LABS: Alanine Aminotransferase 22 IU/L (<35); Albumin 4.5 g/dL (3.5-5.0); Albumin Globulin Ratio 1.7 (1.0-2.8); Alkaline Phosphatase 122 U/L (38-126); Aspartate Aminotransferase 31 IU/L (14-36); Bilirubin Total 0.3 mg/dL (0.2-1.3); Blood Urea Nitrogen 17 mg/dL (7-17); Calcium 10.1 mg/dL (8.4-10.2); Carbon Dioxide 33 mmol/L (22-32); Chloride 92 mmol/L (98-107); Cholesterol 201 mg/dL (140-199); Estimated Glomerular Filt Rate > 60.0 mL/min (>60); Globulin 2.7 g/dL (1.7-4.1); Glucose 123 mg/dL (80-110); HDL Cholesterol 77 mg/dL (40-60); HEMOLYSIS < 15 (0-50); LDL Cholesterol Calculated 89 mg/dL (<100); Potassium 3.4 mmol/L (3.4-5.1); Sodium 136 mmol/L (137-145); Total Protein 7.2 g/dL (6.3-8.2); Triglycerides 175 mg/dL (35-150)
[2020-09-02 20:54] LABS: Hemoglobin A1C% w Est Avg Glu 7.1 % (4.0-6.0)
[2020-09-02 21:00] LABS: Percent Iron Saturation 7 % (15-50); Total Iron Binding Capacity 428 ug/dL (265-497); Transferrin 370 mg/dL (206-381)
[2020-09-02 21:22] LABS: Ferritin 12 ng/mL (11-264)
== END ==
PROVIDERS: Family Provider Physician Assistant; PCP Physician Assistant; Visit Provider Physician Assistant
DX: E87.6 Hypokalemia (principal); E78.2 Mixed hyperlipidemia; I10 Essential (primary) hypertension; D50.9 Iron deficiency anemia, unspecified; R73.03 Prediabetes
CPT/HCPCS: 80053; 80061; 82728; 83036; 83540; 83550; 85025

== ENCOUNTER → 2020-09-10 11:54 | Outpatient (CLI) | payer MEDICARE, OTHER, SELFPAY ==
[2019-11-30 14:10] VITALS: BMI 28.0
--- NOTE | 2020-09-10 11:56 | DI.CT.S_ITS ---
PROCEDURE: CT PEL WO CON INDICATIONS: LEFT HIP PAIN TECHNIQUE: Noncontrast 3 mm axial sections acquired through the bony pelvis, with coronal and sagittal reformatting. COMPARISON: [facility] [place], CR, XR PELVIS WITH LATERAL HIP LEFT, 08/26/2020, 11:49. FINDINGS: Image quality: Excellent. Bones: No trauma found. Soft tissues: No hematoma or evidence of ligamentous disruption or muscular tear is seen. IMPRESSION: Source of persistent left hip pain is not identified. Reportedly trauma was approximately 1-2 weeks ago. Please note that MR scanning does provide the most accurate assessment for hidden fracture and bone bruising or ligamentous/soft tissue injury. Depending on the clinical status follow-up by MR scanning, screening pelvic MRI, may become necessary. Dictated by: Kel Reynolds M.D. on 09/10/2020 at 17:08 Approved by: Kel Reynolds M.D. on 09/10/2020 at 17:10
== END ==
PROVIDERS: Family Provider Physician Assistant; PCP Physician Assistant; Referring Provider Physician Assistant; Visit Provider Physician Assistant
DX: M25.552 Pain in left hip (principal)
CPT/HCPCS: 72192

== ENCOUNTER → 2020-12-18 13:38 | Outpatient (CLI) | payer MEDICARE, OTHER, SELFPAY ==
[2019-11-30 14:10] VITALS: BMI 28.0
--- NOTE | 2020-12-18 | DI.MRI.S_ITS ---
PROCEDURE: MR LUMBAR SPINE WO CON INDICATIONS: Radiculopathy, lumbar region TECHNIQUE: Noncontrast sagittal T1 spin echo and T2 fast echo, sagittal STIR, axial T1 and T2 fast spin echo through the lumbar spine. In cases with scoliosis, additional coronal T2 fast spin echo may be performed. COMPARISON: [facility] [place], CR, XR LUMBAR SPINE 2 OR 3 VIEWS, 07/04/2019, 14:26. [facility], CR, XR LUMBAR SPINE 2-3V, 11/30/2019, 8:15. [facility] [place], CR, XR LUMBAR SPINE 2 OR 3 VIEWS, 12/13/2019, 11:09. [facility], MR, MR LUMBAR SPINE WO/W CON, 07/12/2019, 13:03. FINDINGS: Image quality: Diagnostic, with note made of motion artifact. Alignment and Curvature: Grade 2 L5-S1 anterolisthesis is seen. Minimal retrolisthesis is seen at the L3-L4 level. Bone Marrow: Marrow is of normal overall signal. No acute vertebral body compression fractures. Spinal Cord: Conus medullaris terminates at the L1 level. Visualized cord demonstrates normal signal and size. Paraspinous Soft Tissues: No paravertebral masses. Postoperative changes are seen, with bilateral pedicle screws at L2, L3, and L4. Disc spacers are seen at L2-L3, L3-L4, and at L4-L5. There has been removal of portions of the posterior elements. T12-L1: Normal appearance. L1-L2: The disc height and disc signal are relatively well preserved. Mild disc bulge is seen, with a mild central disc protrusion. Mild facet joint hypertrophy is seen. There is [id number] left-sided and mild right-sided neural foraminal narrowing seen. Minimal central canal narrowing is seen. These imaging findings have progressed compared to the prior study. L2-L3: Postoperative change can be seen at this level. Mild loss of disc height is seen. Loss of disc signal is seen. Mild bilateral neural foraminal narrowing can be seen. No significant central canal narrowing is seen. This level is improved compared to the preoperative MRI. L3-L4: There are postoperative changes at this level. Moderate disc bulge is seen, with a mild central disc protrusion. Moderate facet joint hypertrophy is seen. At least moderate bilateral neural foraminal narrowing can be seen. Mild central canal narrowing is seen. The degrees of narrowing at this level are similar to the prior examination. L4-L5: The disc height and disc signal are relatively well preserved. There is [id number] left-sided and no right-sided neural foraminal narrowing seen. The central canal is widely patent. The posterior pedicle screws that were previously seen at this level have been removed. L5-S1: At least moderate loss of disc height and disc signal can be seen. Moderate generalized disc bulge is seen. Moderate facet joint hypertrophy is seen. Moderate bilateral neural foraminal narrowing is seen. Mild to moderate central canal narrowing is seen. The degrees of neural foraminal and central canal narrowing are similar to the prior MRI. IMPRESSION: Interval revision of the postoperative hardware, with improvement in the degrees of degenerative narrowing at L2-L3 compared to the prior. Dictated by: Ranjan Douglas M.D. on 12/18/2020 at 15:40 Approved by: Ranjan Douglas M.D. on 12/18/2020 at 15:46
== END ==
PROVIDERS: Family Provider Physician Assistant; PCP Physician Assistant; Referring Provider Orthopaedic Surgery; Visit Provider Orthopaedic Surgery
DX: M54.16 Radiculopathy, lumbar region (principal)
CPT/HCPCS: 72148

== ENCOUNTER 2021-09-07 02:05 | Emergency (ER) | payer MEDICARE, OTHER, SELFPAY ==
[2019-11-30 14:10] VITALS: BMI 28.0
[2021-09-07] VITALS (7 sets, daily range): BP systolic 202–223; BP diastolic 89–99; PULSE 71–105; RESP 20; TEMP 36.9; O2SAT 97–99; BMI 30.9
--- NOTE | 2021-09-07 03:02 | DI.CT.S_ITS ---
PROCEDURE: CT HEAD/BRAIN WO CON INDICATIONS: altered, feeling off since surgery TECHNIQUE: Noncontrast 4.5 mm thick angled axial sections acquired from the foramen magnum to the vertex, with coronal and sagittal reformats. For radiation dose reduction, the following was used: automated exposure control, adjustment of mA and/or kV according to patient size. COMPARISON: None. FINDINGS: Image quality: Mild streak artifact can be seen through the skull base. CSF spaces: Basal cisterns are patent. No extra-axial fluid collections. The ventricles are symmetric in size and shape. Brain: No intracranial bleeds or masses. There is cerebral volume loss for age, with resultant ventricular and sulcal prominence. There are periventricular and deep white matter chronic small vessel ischemic changes. Likely remote right basal ganglia lacunar infarct. There is intracranial internal carotid artery atherosclerosis. A small amount of left basal ganglia calcification is seen, which is considered normal for age. Skull and face: Calvarium and visualized facial bones appear intact, without suspicious lesions. Sinuses: Visualized sinuses and mastoids are clear. IMPRESSION: Likely remote right basal ganglia remote lacunar infarct. No acute intracranial process is seen. Note: No significant discrepancy from the preliminary report. Dictated by: Ranjan Douglas M.D. on 09/07/2021 at 7:20 Approved by: Ranjan Douglas M.D. on 09/07/2021 at 7:23
--- NOTE | 2021-09-07 03:02 | ED.FEMALEGU ---
HPI - Female Genitourinary General Chief complaint: Urogenital-Female Stated complaint: BLADDER INFECTION Time Seen by Provider: 09/07/21 02:08 Source: patient Mode of arrival: Ambulatory History of Present Illness HPI Narrative: 76-year-old female former smoker with history of hypertension, hyperlipidemia and spinal stenosis presents with her in the chief complaint of concerns for a urinary tract infection. She states that she has had burning and urinary frequency for the past few days and this feels like prior urine infections. She denies fever or chills and has some nausea but denies vomiting. She had a lumbar surgery about 1 week ago at an outside hospital and states that she just has not felt great ever since. She denies any significant back pain in those symptoms that the surgery was intended to fix are greatly improved. She denies any lower extremity numbness, tingling or weakness. She denies any loss of control of bowel or bladder. Her has been changing the dressing on her wound and reports there has been no drainage of fluid or blood. Related Data Home Medications Medication Instructions Recorded Confirmed chlorthalidone 25 mg tablet 25 mg PO DAILY 07/11/18 11/30/19 duloxetine 30 mg capsule,delayed 60 mg PO DAILY 07/11/18 11/30/19 release lisinopril 20 mg tablet 20 mg PO BID 07/11/18 11/30/19 pravastatin 20 mg tablet 20 mg PO DAILY 07/11/18 11/30/19 esomeprazole magnesium 40 mg 40 mg PO DAILY 11/28/19 11/30/19 capsule,delayed release (Nexium) fexofenadine 60 mg tablet (Jazzy 60 mg PO DAILY 11/28/19 11/30/19 Allergy) Previous Rx's Medication Instructions Recorded docusate sodium 100 mg capsule 100 mg PO BID PRN #30 cap 12/02/19 (DOK) hydrocodone 5 mg-acetaminophen 325 See Rx Instructions .ROUTE 12/02/19 mg tablet .COMPLEX PRN #50 tab hydroxyzine pamoate 25 mg capsule 25 mg PO Q4HR PRN #20 cap NS 12/02/19 Allergies Allergy/AdvReac Type Severity Reaction Status Date / Time celecoxib [From Celebrex] Allergy Severe Welts Verified 11/28/19 14:02 Penicillins [PENICILLINS] Allergy Severe Welts Verified 11/28/19 14:02 Sulfa (Sulfonamide Allergy Severe Welts Verified 11/28/19 14:02 Antibiotics) [SULFA (SULFONAMIDE ANTIBIOTICS)] codeine [CODEINE] AdvReac Severe Difficulty Verified 11/28/19 14:02 as a child, groggy acetaminophen [From Vicodin] AdvReac Gastrointestinal Verified 11/30/19 06:58 Upset hydrocodone [From Vicodin] AdvReac Gastrointestinal Verified 11/30/19 06:58 Upset Review of Systems Review of Systems Narrative: GENERAL: See HPI. HEENT: Denies sinus pain, ear pain, sore throat, difficulty swallowing, dizziness. RESPIRATORY: Denies dyspnea, cough, wheezing, hemoptysis, sputum. CARDIOVASCULAR: Denies chest pain, palpitations, orthopnea, edema, GASTROINTESTINAL: See HPI : See HPI MUSCULOSKELETAL: denies weakness, joint pain, or bony pain SKIN: Denies rash, skin lesions, or other NEUROLOGIC: Denies weakness, headache, numbness, change in speech, confusion, seizures, incoordination. PSYCHIATRIC: No concerning psychosocial issues. 12 point review of systems is negative except for those stated above Patient History Medical History Depression Hearing impaired HLD (hyperlipidemia) HTN (hypertension) Skin cancer Spinal stenosis Surgical History History of lumbar fusion (2004) Hx of hand surgery Status post cholecystectomy Status post hysterectomy Status post rotator cuff repair alcohol intake frequency: holidays/special occasions only Substance Use Type: does not use Exam Narrative Exam Narrative: GENERAL: [76 year old patient appears stated age. Well-developed patient, in mild distress. Anxious, almost tearful HEAD: Atraumatic. Normocephalic. EYES: Pupils equal round and reactive. Extraocular motions intact. No scleral icterus. No injection or drainage. ENT: Nose without bleeding, purulent drainage. Throat without erythema, tonsillar hypertrophy or exudate. Airway patent. NECK: Trachea midline. Non tender CARDIOVASCULAR: Regular rate and rhythm without murmurs, gallops, or rubs. RESPIRATORY: Clear to auscultation. Breath sounds equal bilaterally. No wheezes, rales, or rhonchi. GASTROINTESTINAL: Abdomen soft, non-tender, nondistended. EXTREMITIES: No edema or joint tenderness. BACK: Nontender without deformity or crepitance. No flank tenderness. Incision is clean, dry and intact without surrounding erythema, edema, induration or fluctuance. No saddle anesthesia, lower extremity sensation intact, bilateral patellar reflexes 1+ NEURO: AOx3. SKIN: No rash or erythema of visible areas Initial Vital Signs Initial Vital Signs: Vital Signs Pulse Rate 105 H 09/07/21 02:15 Pulse Oximetry 97 09/07/21 02:15 Course Orders Ordered: Discontinued Medications Sodium Chloride (Normal Saline 0.9%) 500 mls @ 1,000 mls/hr IV BOLUS ONE Stop: 09/07/21 03:29 Last Admin: 09/07/21 03:10 Dose: 1,000 mls/hr Documented by: BLADIMIR Vital Signs Vital signs: Vital Signs - 8 hr 09/07/21 02:15 09/07/21 02:16 09/07/21 02:20 Temperature 98.5 F Pulse Rate 105 H 100 H 81 Respiratory Rate 20 Blood Pressure 202/99 H 202/89 H Pulse Oximetry 97 98 98 09/07/21 02:30 09/07/21 03:00 09/07/21 03:17 Temperature Pulse Rate 79 72 78 Respiratory Rate Blood Pressure 223/94 H Pulse Oximetry 99 97 98 09/07/21 03:30 Temperature Pulse Rate 71 Respiratory Rate Blood Pressure 202/91 H Pulse Oximetry 98 MDM - Female Genitourinary Lab Data Result diagrams: 09/07/21 03:05 09/07/21 03:05 Labs: Lab Results 09/07/21 09/07/21 Range/Units 03:05 03:05 WBC 12.0 H (4.5-11.0) X10^3/uL RBC 4.87 (4.0-5.2) X10^6/uL Hgb 12.4 (12.0-16.0) g/dL Hct 38.3 (36-46) % MCV 78.6 L (80-100) fL MCH 25.5 L (26-34) PG MCHC 32.4 (30-36) % RDW 17.1 H (11.6-14.8) % Plt Count 329 (150-400) X10^3/uL Neut % (Auto) 57.9 (50-75) % Lymph % (Auto) 28.9 (25-40) % Holmes % (Auto) 8.9 (3-14) % Eos % (Auto) 3.2 (2-4) % Baso % (Auto) 1.1 (0-2) % Neut # (Auto) 6900 (2505-6632) /uL Lymph # (Auto) 3500 (7422-9961) /uL Holmes # (Auto) 1100 H (0-900) /uL Eos # (Auto) 400 (0-450) /uL Baso # (Auto) 100 (0-100) /uL Sodium 140 (137-145) mmol/L Potassium 3.5 (3.4-5.1) mmol/L Chloride 104 (98-107) mmol/L Carbon Dioxide 28 (22-32) mmol/L BUN 13 (7-17) mg/dL Creatinine 0.84 (0.52-1.04) mg/dL Estimated GFR > 60.0 (>60) mL/min BUN/Creatinine Ratio 15.5 (6-22) Glucose 151 H (80-110) mg/dL Calcium 9.8 (8.4-10.2) mg/dL Magnesium 1.7 (1.6-2.3) mg/dL Total Bilirubin 0.6 (0.2-1.3) mg/dL AST 33 (14-36) IU/L ALT 32 (<35) IU/L Alkaline Phosphatase 144 H (38-126) U/L Total Creatine Kinase 71 (30-135) U/L CK-MB (CK-2) TNP CK-MB (CK-2) Rel Index TNP Troponin I < 0.012 (0.01-0.034) ng/mL Total Protein 7.7 (6.3-8.2) g/dL Albumin 4.5 (3.5-5.0) g/dL Globulin 3.2 (1.7-4.1) g/dL Albumin/Globulin Ratio 1.4 (1.0-2.8) Lipase 163 (23-300) U/L Urine Dip Bedside Urine Glucose Negative Bedside Urine Bilirubin - Negative Bedside Urine Ketone - Negative Urine Specific [place] 1.015 Bedside Urine Occult Blood +/- Bedside Urine pH 6 Bedside Urine Protein - Negative Bedside Urine Nitrite - Negative Bedside Urine Leukocytes - Negative Esterase Imaging Data CT scan - head: Radiologist's Impression: Probably small age-indeterminate lacunar type infarct in the R basal ganglia MDM Narrative Medical decision making narrative: 76-year-old female complains of dysuria, frequency and urgency for the past few days. Her urine POC is unremarkable and shows no sign of infection. Additionally she states she has just felt of but off, she has very nonspecific complaints but had presented to an outside emergency department with largely reassuring labs, a repeat set of labs including head CT ordered and are unremarkable. Discharge Plan Departure Patient Disposition: Home Clinical Impression: Dysuria Activity Restrictions/Additional Instructions: *You have been diagnosed with [dysuria. There is no evidence of a urinary tract infection. Additionally, as we discussed her history and physical exam as well as labs and CT scan are unremarkable for any acute abnormality *What to do: *Please continue to take your regular medications as directed. [ ] New medication prescriptions sent to your pharmacy: [ ] [ ] New medication written as a paper prescription [x ] No new medications given *Please follow up with your primary care provider in 2-3 days, call for an appointment. Let them know you were seen in the Emergency Department and that we ask that you be seen in follow up. We will electronically transmit a record of today's note if your PCP is in our system *If you do not have a primary care provider please contact the [facility] Resource line at [phone]. They will ask some questions about your medical history and help get you set up with a doctor in the community. *Return to Emergency Department if you should have any new, worsening or concerning symptoms, such as [fever greater than 101 F, shaking chills, worsening pain, persistent vomiting or other bothersome symptoms] Prescriptions: No Action lisinopril 20 mg tablet 20 mg PO BID 0RF chlorthalidone 25 mg tablet 25 mg PO DAILY 0RF pravastatin 20 mg tablet 20 mg PO DAILY 0RF duloxetine 30 mg capsule,delayed release(DR/EC) 60 mg PO DAILY 0RF Label Comments: TK 1 C PO QD esomeprazole magnesium [Nexium] 40 mg Capsule,Delayed Release(Dr/Ec) 40 mg PO DAILY 0RF fexofenadine [Jazzy Allergy] 60 mg Tablet 60 mg PO DAILY 0RF docusate sodium [DOK] 100 mg Capsule 100 mg PO BID PRN (Reason: constipation) Qty: 30 0RF hydrocodone-acetaminophen 5-325 mg Tablet See Rx Instructions .ROUTE .COMPLEX PRN (Reason: Pain, Moderate (4-6)) Qty: 50 0RF Rx Instructions: 1-2 PO q4h prn pain hydroxyzine pamoate 25 mg Capsule 25 mg PO Q4HR PRN (Reason: spasms) Qty: 20 0RF Referrals: Nahid Mitchell MD [Primary Care Provider] -
[2021-09-07] MEDS: SODIUM CHLORIDE 0.9% 500 ML 1000 ML IV (03:10)
[2021-09-07 03:25] LABS: Add Manual Diff / Slide Review NO; Basophils Absolute Auto 100 /uL (0-100); Basophils Percent Auto 1.1 % (0-2); Eosinophils Absolute Auto 400 /uL (0-450); Eosinophils Percent Auto 3.2 % (2-4); Hematocrit 38.3 % (36-46); Hemoglobin 12.4 g/dL (12.0-16.0); Lymphocytes Absolute Auto 3500 /uL (1100-4500); Lymphocytes Percent Auto 28.9 % (25-40); Mean Corpuscular HGB Conc 32.4 % (30-36); Mean Corpuscular Hemoglobin 25.5 PG (26-34); Mean Corpuscular Volume 78.6 fL (80-100); Monocytes Absolute Auto 1100 /uL (0-900); Monocytes Percent Auto 8.9 % (3-14); Neutrophils Absolute Auto 6900 /uL (1500-7000); Neutrophils Percent Auto 57.9 % (50-75); Platelet Count 329 X10^3/uL (150-400); Red Blood Cell Count 4.87 X10^6/uL (4.0-5.2); Red Cell Distribution Width 17.1 % (11.6-14.8)
[2021-09-07 03:26] LABS: Alanine Aminotransferase 32 IU/L (<35); Albumin 4.5 g/dL (3.5-5.0); Albumin Globulin Ratio 1.4 (1.0-2.8); Alkaline Phosphatase 144 U/L (38-126); Aspartate Aminotransferase 33 IU/L (14-36); BUN Creatinine Ratio 15.5 (6-22); Bilirubin Total 0.6 mg/dL (0.2-1.3); Blood Urea Nitrogen 13 mg/dL (7-17); Calcium 9.8 mg/dL (8.4-10.2); Carbon Dioxide 28 mmol/L (22-32); Chloride 104 mmol/L (98-107); Creatine Kinase 71 U/L (30-135); Estimated Glomerular Filt Rate > 60.0 mL/min (>60); Globulin 3.2 g/dL (1.7-4.1); Glucose 151 mg/dL (80-110); HEMOLYSIS < 15 (0-50); Lipase 163 U/L (23-300); Magnesium 1.7 mg/dL (1.6-2.3); Potassium 3.5 mmol/L (3.4-5.1); Sodium 140 mmol/L (137-145); Total Protein 7.7 g/dL (6.3-8.2)
[2021-09-07 03:37] LABS: Troponin I < 0.012 ng/mL (0.01-0.034)
== END 2021-09-07 04:12 | disposition home or self-care (01) ==
PROVIDERS: Emergency Provider Emergency Medicine; Family Provider Physician Assistant; PCP Internal Medicine
DX: R30.0 Dysuria (principal); R35.0 Frequency of micturition; R39.15 Urgency of urination
CPT/HCPCS: 51798; 70450; 80053; 81003; 82550; 83690; 83735; 84484; 85025; 99284

== ENCOUNTER 2022-02-11 10:35 | Inpatient (IN) | payer MEDICARE, OTHER, SELFPAY ==
[2019-11-30 14:10] VITALS: BMI 28.0
[2022-02-11] VITALS (63 sets, daily range): BP systolic 127–182; BP diastolic 57–100; PULSE 61–92; RESP 16–47; TEMP 36.2–37; O2SAT 92–100; BMI 29.2
--- NOTE | 2022-02-11 10:52 | DI.RAD.S_ITS ---
PROCEDURE: XR CHEST 1V INDICATIONS: chest pain TECHNIQUE: One view of the chest was acquired. COMPARISON: [facility], , XR CHEST 2V, 01/26/2018, 11:50. [facility], , CHEST 2 VIEW, 10/17/2013, 14:39. FINDINGS: Surgical changes and devices: Clips overlying the left heart. Recommend clinical correlation. Lumbar spine hardware. Lungs and pleura: Prominent pulmonary markings. No consolidative opacity. No pleural effusions or pneumothorax. Mediastinum: Mediastinal contours appear unchanged. Heart size is normal. Bones and chest wall: No suspicious bony lesions. Overlying soft tissues appear unremarkable. IMPRESSION: Suspect pulmonary vasculature engorgement. Dictated by: Gabriel Barreto M.D. on 02/11/2022 at 11:11 Approved by: Gabriel Barreto M.D. on 02/11/2022 at 11:14
[2022-02-11 11:05] LABS: Add Manual Diff / Slide Review NO; Basophils Absolute Auto 100 /uL (0-100); Basophils Percent Auto 1.3 % (0-2); Eosinophils Absolute Auto 200 /uL (0-450); Eosinophils Percent Auto 3.1 % (2-4); Lymphocytes Absolute Auto 1500 /uL (1100-4500); Mean Corpuscular HGB Conc 30.2 % (30-36); Mean Corpuscular Hemoglobin 19.8 PG (26-34); Mean Corpuscular Volume 65.8 fL (80-100); Monocytes Absolute Auto 1000 /uL (0-900); Monocytes Percent Auto 13.9 % (3-14); Neutrophils Absolute Auto 4400 /uL (1500-7000); Neutrophils Percent Auto 60.7 % (50-75); Platelet Count 319 X10^3/uL (150-400); Red Blood Cell Count 2.81 X10^6/uL (4.0-5.2); Red Cell Distribution Width 20.4 % (11.6-14.8); White Blood Cell Count 7.2 X10^3/uL (4.5-11.0)
--- NOTE | 2022-02-11 11:05 | ED.ARRPALP ---
HPI - Arrhythmia/Palpitations General Chief Complaint: Arrhythmia/Palpitations Stated Complaint: Reaction to medication/Sent by doc Time Seen by Provider: 02/11/22 11:04 History of Present Illness HPI narrative: Patient is a 76-year-old female history of hypertension hyperlipidemia spinal stenosis presenting today with increased fatigue. She apparently had a loop recorder placed a while ago according to the it showed some blips and she was started on Xarelto. This was about 1 month ago. For the last 2-3 weeks she has had increasing fatigue. Weakness with very little exertion. She really denies shortness of breath is or chest pain or palpitations. She has no bloody stool. She had outpatient blood work today which showed hematocrit 18.4, hemoglobin 5.6. Related Data Home Medications Medication Instructions Recorded Confirmed chlorthalidone 25 mg tablet 25 mg PO DAILY 07/11/18 11/30/19 duloxetine 30 mg capsule,delayed 60 mg PO DAILY 07/11/18 11/30/19 release lisinopril 20 mg tablet 20 mg PO BID 07/11/18 11/30/19 pravastatin 20 mg tablet 20 mg PO DAILY 07/11/18 11/30/19 esomeprazole magnesium 40 mg 40 mg PO DAILY 11/28/19 11/30/19 capsule,delayed release (Nexium) fexofenadine 60 mg tablet (Jazzy 60 mg PO DAILY 11/28/19 11/30/19 Allergy) Previous Rx's Medication Instructions Recorded docusate sodium 100 mg capsule 100 mg PO BID PRN constipation #30 12/02/19 (DOK) caps hydrocodone 5 mg-acetaminophen 325 See Rx Instructions .Route 12/02/19 mg tablet .COMPLEX PRN Pain, Moderate (4-6) #50 tabs hydroxyzine pamoate 25 mg capsule 25 mg PO Q4HR PRN spasms #20 caps 12/02/19 Allergies Allergy/AdvReac Type Severity Reaction Status Date / Time celecoxib [From Celebrex] Allergy Severe Welts Verified 11/28/19 14:02 Penicillins [PENICILLINS] Allergy Severe Welts Verified 11/28/19 14:02 Sulfa (Sulfonamide Allergy Severe Welts Verified 11/28/19 14:02 Antibiotics) [SULFA (SULFONAMIDE ANTIBIOTICS)] codeine [CODEINE] AdvReac Severe Difficulty Verified 11/28/19 14:02 as a child, groggy acetaminophen [From Vicodin] AdvReac Gastrointestinal Verified 11/30/19 06:58 Upset hydrocodone [From Vicodin] AdvReac Gastrointestinal Verified 11/30/19 06:58 Upset Review of Systems Review of Systems Narrative: GENERAL: See HPI HEENT: Denies sinus pain, ear pain, sore throat, difficulty swallowing, neck pain RESPIRATORY: Denies dyspnea, cough, wheezing, hemoptysis, sputum. CARDIOVASCULAR: Denies chest pain, palpitations, orthopnea, edema GASTROINTESTINAL: Denies nausea, vomiting, abdominal pain, diarrhea, constipation, melena. : Denies dysuria, frequency, incontinence, hematuria, urinary retention, flank pain. MUSCULOSKELETAL: Denies weakness, joint pain, or bony pain SKIN: No rash, no erythema, no pruritus NEUROLOGIC: Denies weakness, dizziness, headache, numbness, change in speech, confusion PSYCHIATRIC: No concerning psychosocial issues. 12 point review of systems is negative except for those stated above and HPI Patient History Medical History Depression Hearing impaired HLD (hyperlipidemia) HTN (hypertension) Skin cancer Spinal stenosis Surgical History History of lumbar fusion (2004) Hx of hand surgery Status post cholecystectomy Status post hysterectomy Status post rotator cuff repair Social History household members: spouse Smoking Status: Former smoker alcohol intake: never Smoking Status: Former smoker alcohol intake frequency: holidays/special occasions only Substance Use Type: does not use Exam Initial Vital Signs Initial Vital Signs: Vital Signs Temperature 98.4 F 02/11/22 10:48 Pulse Rate 89 02/11/22 10:48 Respiratory Rate 16 02/11/22 10:48 Blood Pressure 136/60 02/11/22 10:48 Pulse Oximetry 97 02/11/22 10:48 Oxygen Delivery Method 02/11/22 10:48 GENERAL: Pale 76-year-old female HEENT: Head atraumatic,EOMI, pupils reactive, face symmetric, moist mucous membranes CARDIOVASCULAR: Regular rate and rhythm without murmurs, rubs or gallops. RESPIRATORY: Breath sounds equal bilaterally, no wheezes rales or rhonchi. ABDOMEN: Soft, nontender. Normoactive bowel sounds all 4 quadrants. No guarding or rebound. RECTAL: + hemorrhoids, negative Hemoccult, no stool EXTREMITIES: Normal range of motion, no clubbing or edema. Neurovascularly intact NEUROLOGICAL: Alert and oriented x4. SKIN: Warm, dry, no laceration, no petechiae, no rashes or lesions. Course Orders Ordered: ED Orders 02/11/22 10:52 XR chest 1V Stat BNP [NT-proBNP (BNP-Adult 18+)] Stat Complete Blood Count AUTO DIFF Stat Comprehensive Metabolic Panel Stat Iron Profile (w/ % Saturation) Stat Lactate (Lactic Acid) Stat Lipase Stat Magnesium Stat PRBC [Packed Cells] Stat Partial Thromboplastin Time Stat Prothrombin Time INR Stat Troponin & CK Cardiac Panel Stat Type and Screen Stat EKG-12 Lead Stat 02/11/22 13:13 Consult to General Surgery Routine 02/11/22 13:39 Chest [XR chest 1V] Stat 02/11/22 13:56 Transfusion Reaction Stat 02/11/22 15:23 COVID19 -Nasal RAPID/Pre-Proc Stat Chlorthalidone (Chlorthalidone 25 Mg Tablet) 25 mg PO DAILY CHAMP Duloxetine HCl (Duloxetine 30 Mg Capsule) 60 mg PO DAILY [facility]AMP Furosemide (Furosemide 40 Mg/4 Ml Vial) 40 mg IV NOW ONE Stop: 02/11/22 21:01 Lisinopril (Lisinopril 20 Mg Tablet) 20 mg PO BID CHAMP Pantoprazole Sodium (Pantoprazole 40 Mg Vial) 40 mg IV BID CHAMP Pravastatin Sodium (Pravastatin 20 Mg Tablet) 20 mg PO DAILY CHAMP Discontinued Medications Diphenhydramine HCl (Diphenhydramine 50 Mg/Ml Vial) 50 mg IV NOW ONE Stop: 02/11/22 13:37 Last Admin: 02/11/22 13:40 Dose: 50 mg Documented By: CSD Diphenhydramine HCl (Diphenhydramine 50 Mg/Ml Vial) 50 mg IV NOW ONE Stop: 02/11/22 16:46 Last Admin: 02/11/22 16:53 Dose: 50 mg Documented By: CC Famotidine (Famotidine 20 Mg/2 Ml Vial) 20 mg IV NOW CHAMP Last Admin: 02/11/22 13:56 Dose: 20 mg Documented By: CSD Furosemide (Furosemide 40 Mg/4 Ml Vial) 20 mg IV NOW ONE Stop: 02/11/22 13:40 Last Admin: 02/11/22 13:56 Dose: 20 mg Documented By: MIGUEL Furosemide (Furosemide 40 Mg/4 Ml Vial) 40 mg IV NOW ONE Stop: 02/11/22 16:23 Last Admin: 02/11/22 17:36 Dose: Not Given Documented By: ROSARIO Methylprednisolone (Methylprednisolone 125 Mg/2 Ml Vial) 125 mg IV NOW ONE Stop: 02/11/22 13:42 Last Admin: 02/11/22 13:55 Dose: 125 mg Documented By: MIGUEL Pantoprazole Sodium (Pantoprazole 40 Mg Vial) 40 mg IV NOW ONE Stop: 02/11/22 11:15 Last Admin: 02/11/22 12:30 Dose: 40 mg Documented By: MIGUEL Vital Signs Vital signs: Vital Signs - 8 hr 02/11/22 10:48 02/11/22 10:58 02/11/22 12:51 Temperature 98.4 F 98.5 F Pulse Rate 89 76 68 Respiratory Rate 16 22 16 Blood Pressure 136/60 154/70 H Pulse Oximetry 97 98 Oxygen Delivery Method Room Air 02/11/22 12:53 02/11/22 13:28 02/11/22 13:33 Temperature 98.5 F 98.6 F Pulse Rate 63 92 H Respiratory Rate 22 35 H Blood Pressure 137/97 H 182/80 H Pulse Oximetry 99 Oxygen Delivery Method Room Air 02/11/22 11:00 02/11/22 11:01 02/11/22 11:01 Temperature Pulse Rate 72 74 Respiratory Rate 32 H 23 Blood Pressure 163/70 H Pulse Oximetry 97 97 Oxygen Delivery Method 02/11/22 11:30 02/11/22 11:30 02/11/22 12:00 Temperature Pulse Rate 64 62 Respiratory Rate 21 21 Blood Pressure 154/70 H Pulse Oximetry 97 98 Oxygen Delivery Method 02/11/22 12:30 02/11/22 13:18 02/11/22 13:09 Temperature 97.7 F Pulse Rate 63 66 Respiratory Rate 21 18 Blood Pressure 143/65 H Pulse Oximetry 97 99 Oxygen Delivery Method Room Air Room Air Room Air 02/11/22 12:53 02/11/22 12:53 02/11/22 13:00 Temperature Pulse Rate 64 Respiratory Rate 21 Blood Pressure 137/97 H 130/87 Pulse Oximetry 99 Oxygen Delivery Method 02/11/22 13:00 02/11/22 13:18 02/11/22 13:18 Temperature Pulse Rate 61 64 Respiratory Rate 18 21 Blood Pressure 143/65 H Pulse Oximetry 96 98 Oxygen Delivery Method 02/11/22 13:30 02/11/22 13:33 02/11/22 13:33 Temperature Pulse Rate 86 89 Respiratory Rate 47 H 35 H Blood Pressure 182/80 H Pulse Oximetry 93 92 Oxygen Delivery Method 02/11/22 13:44 02/11/22 13:44 02/11/22 13:45 Temperature Pulse Rate 72 Respiratory Rate 25 H Blood Pressure 159/65 H 148/67 H Pulse Oximetry 95 Oxygen Delivery Method 02/11/22 13:45 02/11/22 14:00 02/11/22 14:09 Temperature Pulse Rate 70 76 Respiratory Rate 26 H 20 Blood Pressure 144/69 H Pulse Oximetry 94 95 Oxygen Delivery Method 02/11/22 14:09 02/11/22 14:11 02/11/22 14:11 Temperature Pulse Rate 77 75 Respiratory Rate 26 H 21 Blood Pressure 157/67 H Pulse Oximetry 98 98 Oxygen Delivery Method 02/11/22 14:15 02/11/22 14:15 02/11/22 14:20 Temperature Pulse Rate 74 Respiratory Rate 21 Blood Pressure 158/69 H 162/70 H Pulse Oximetry 100 Oxygen Delivery Method 02/11/22 14:20 02/11/22 14:25 02/11/22 14:25 Temperature Pulse Rate 75 83 Respiratory Rate 19 26 H Blood Pressure 154/70 H Pulse Oximetry 98 97 Oxygen Delivery Method 02/11/22 14:30 02/11/22 14:30 Temperature Pulse Rate 73 Respiratory Rate 19 Blood Pressure 147/67 H Pulse Oximetry 94 Oxygen Delivery Method MDM - Arrhythmia/Palpitations Lab Data Result diagrams: 02/11/22 15:58 02/11/22 10:52 Labs: Lab Results 02/11/22 02/11/22 02/11/22 Range/Units 10:52 10:52 10:52 WBC 7.2 (4.5-11.0) X10^3/uL RBC 2.81 L (4.0-5.2) X10^6/uL Hgb 5.6 L* (12.0-16.0) g/dL Hct 18.4 L* (36-46) % MCV 65.8 L (80-100) fL MCH 19.8 L (26-34) PG MCHC 30.2 (30-36) % RDW 20.4 H (11.6-14.8) % Plt Count 319 (150-400) X10^3/uL Neut % (Auto) 60.7 (50-75) % Lymph % (Auto) 21.0 L (25-40) % [place] % (Auto) 13.9 (3-14) % Eos % (Auto) 3.1 (2-4) % Baso % (Auto) 1.3 (0-2) % Neut # (Auto) 4400 (8908-4737) /uL Lymph # (Auto) 1500 (0208-4416) /uL [place] # (Auto) 1000 H (0-900) /uL Eos # (Auto) 200 (0-450) /uL Baso # (Auto) 100 (0-100) /uL RBC Morphology See below Hypochromasia 2+ H Microcytosis 2+ H PT 17.1 H (10.1-12.7) SECONDS INR 1.5 H (0.9-1.3) APTT 43 H (26-36) SECONDS Sodium 139 (137-145) mmol/L Potassium 4.1 (3.4-5.1) mmol/L Chloride 105 (98-107) mmol/L Carbon Dioxide 26 (22-32) mmol/L BUN 13 (7-17) mg/dL Creatinine 0.89 (0.52-1.04) mg/dL Estimated GFR > 60 (>60) mL/min BUN/Creatinine Ratio 14.6 (6-22) Glucose 141 H (80-110) mg/dL Lactate (0.7-2.1) mmol/L Calcium 8.9 (8.4-10.2) mg/dL Magnesium 2.1 (1.6-2.3) mg/dL Iron (37-170) ug/dL TIBC (265-497) ug/dL % Saturation (15-50) % Transferrin (206-381) mg/dL Total Bilirubin 0.4 (0.2-1.3) mg/dL AST 17 (14-36) IU/L ALT 9 (<35) IU/L Alkaline Phosphatase 85 (38-126) U/L Total Creatine Kinase 30 (30-135) U/L CK-MB (CK-2) TNP CK-MB (CK-2) Rel Index TNP Troponin I < 0.012 (0.01-0.034) ng/mL NT-Pro-B Natriuret Pep (<450) pg/mL Total Protein 6.7 (6.3-8.2) g/dL Albumin 4.0 (3.5-5.0) g/dL Globulin 2.7 (1.7-4.1) g/dL Albumin/Globulin Ratio 1.5 (1.0-2.8) Lipase 41 (23-300) U/L Blood Type Antibody Screen Crossmatch Transfusion React Rpt Donor Unit # Lab Clerical Err Check Pre-Trans Blood Type Pre-Trans Vis Hemolysis Pre-Trans Antibody Scrn Post-Trans Blood Type Post-Tx Visible Hemolys Post-Trans Antibody Scrn 02/11/22 02/11/22 02/11/22 Range/Units 10:52 10:52 10:52 WBC (4.5-11.0) X10^3/uL RBC (4.0-5.2) X10^6/uL Hgb (12.0-16.0) g/dL Hct (36-46) % MCV (80-100) fL MCH (26-34) PG MCHC (30-36) % RDW (11.6-14.8) % Plt Count (150-400) X10^3/uL Neut % (Auto) (50-75) % Lymph % (Auto) (25-40) % [place] % (Auto) (3-14) % Eos % (Auto) (2-4) % Baso % (Auto) (0-2) % Neut # (Auto) (2914-8196) /uL Lymph # (Auto) (1327-2894) /uL [place] # (Auto) (0-900) /uL Eos # (Auto) (0-450) /uL Baso # (Auto) (0-100) /uL RBC Morphology Hypochromasia Microcytosis PT (10.1-12.7) SECONDS INR (0.9-1.3) APTT (26-36) SECONDS Sodium (137-145) mmol/L Potassium (3.4-5.1) mmol/L Chloride (98-107) mmol/L Carbon Dioxide (22-32) mmol/L BUN (7-17) mg/dL Creatinine (0.52-1.04) mg/dL Estimated GFR (>60) mL/min BUN/Creatinine Ratio (6-22) Glucose (80-110) mg/dL Lactate 1.2 (0.7-2.1) mmol/L Calcium (8.4-10.2) mg/dL Magnesium (1.6-2.3) mg/dL Iron (37-170) ug/dL TIBC (265-497) ug/dL % Saturation (15-50) % Transferrin (206-381) mg/dL Total Bilirubin (0.2-1.3) mg/dL AST (14-36) IU/L ALT (<35) IU/L Alkaline Phosphatase (38-126) U/L Total Creatine Kinase (30-135) U/L CK-MB (CK-2) CK-MB (CK-2) Rel Index Troponin I (0.01-0.034) ng/mL NT-Pro-B Natriuret Pep 569 H (<450) pg/mL Total Protein (6.3-8.2) g/dL Albumin (3.5-5.0) g/dL Globulin (1.7-4.1) g/dL Albumin/Globulin Ratio (1.0-2.8) Lipase (23-300) U/L Blood Type O Negative Antibody Screen Negative Crossmatch See Detail Transfusion React Rpt Donor Unit # Lab Clerical Err Check Pre-Trans Blood Type Pre-Trans Vis Hemolysis Pre-Trans Antibody Scrn Post-Trans Blood Type Post-Tx Visible Hemolys Post-Trans Antibody Scrn 02/11/22 02/11/22 Range/Units 10:52 13:56 WBC (4.5-11.0) X10^3/uL RBC (4.0-5.2) X10^6/uL Hgb (12.0-16.0) g/dL Hct (36-46) % MCV (80-100) fL MCH (26-34) PG MCHC (30-36) % RDW (11.6-14.8) % Plt Count (150-400) X10^3/uL Neut % (Auto) (50-75) % Lymph % (Auto) (25-40) % [place] % (Auto) (3-14) % Eos % (Auto) (2-4) % Baso % (Auto) (0-2) % Neut # (Auto) (2088-1085) /uL Lymph # (Auto) (1429-6717) /uL [place] # (Auto) (0-900) /uL Eos # (Auto) (0-450) /uL Baso # (Auto) (0-100) /uL RBC Morphology Hypochromasia Microcytosis PT (10.1-12.7) SECONDS INR (0.9-1.3) APTT (26-36) SECONDS Sodium (137-145) mmol/L Potassium (3.4-5.1) mmol/L Chloride (98-107) mmol/L Carbon Dioxide (22-32) mmol/L BUN (7-17) mg/dL Creatinine (0.52-1.04) mg/dL Estimated GFR (>60) mL/min BUN/Creatinine Ratio (6-22) Glucose (80-110) mg/dL Lactate (0.7-2.1) mmol/L Calcium (8.4-10.2) mg/dL Magnesium (1.6-2.3) mg/dL Iron 32 L (37-170) ug/dL TIBC 459 (265-497) ug/dL % Saturation 7 L (15-50) % Transferrin 357 (206-381) mg/dL Total Bilirubin (0.2-1.3) mg/dL AST (14-36) IU/L ALT (<35) IU/L Alkaline Phosphatase (38-126) U/L Total Creatine Kinase (30-135) U/L CK-MB (CK-2) CK-MB (CK-2) Rel Index Troponin I (0.01-0.034) ng/mL NT-Pro-B Natriuret Pep (<450) pg/mL Total Protein (6.3-8.2) g/dL Albumin (3.5-5.0) g/dL Globulin (1.7-4.1) g/dL Albumin/Globulin Ratio (1.0-2.8) Lipase (23-300) U/L Blood Type Antibody Screen Crossmatch Transfusion React Rpt No discrepancies Donor Unit # [id number] Lab Clerical Err Check No error found Pre-Trans Blood Type Not Reportable Pre-Trans Vis Hemolysis No Pre-Trans Antibody Scrn Not Reportable Post-Trans Blood Type O negative Post-Tx Visible Hemolys No Post-Trans Antibody Scrn Not Reportable Imaging Data Chest x-ray: Radiologist's Impresson: XRay Report Signed Patient: Ruth Yee MR#: [id number] : 1945 Acct:[id number] Age/Sex: 76 / F Date of Service: 02/11/22 Loc: ED Accession Number: [id number] ?? Procedure: XR chest 1V Ordering Provider: Myriam Ireland D.O. PROCEDURE:? XR CHEST 1V ? INDICATIONS:? chest pain ? TECHNIQUE:? One view of the chest was acquired.? ? COMPARISON:? [facility], , XR CHEST 2V, 01/26/2018, 11:50.? [facility], CR, CHEST 2 VIEW, 10/17/2013, 14:39. ? FINDINGS:? ? Surgical changes and devices:? Clips overlying the left heart.? Recommend clinical correlation.? Lumbar spine hardware. ? Lungs and pleura:? Prominent pulmonary markings.? No consolidative opacity.? No pleural effusions or pneumothorax.? ? Mediastinum:? Mediastinal contours appear unchanged.? Heart size is normal.? ? Bones and chest wall:? No suspicious bony lesions.? Overlying soft tissues appear unremarkable.? ? IMPRESSION:? Suspect pulmonary vasculature engorgement. ? ? Dictated by: Gabriel Barreto M.D. on 02/11/2022 at 11:11 ? ? ECG Data Interpretation: Normal sinus rhythm rate 71 IN interval 156 QRS [address] changes no T-wave inversion MDM Narrative Medical decision making narrative: Patient is found to be anemic with a hemoglobin of 5.6 and hematocrit of 18. She complains of weakness but does have some obvious shortness of breath with minimal exertion. Records from [facility] report that she had new onset atrial fibrillation on 08/23/2021 at 1:00 a.m. lasting for 2 hours. She was started on Xarelto around that time. It appears as though she has had previous syncopal episode which is why the loop recorder was placed. I did discuss risks of blood transfusion with patient in regards to reactions, HIV and hepatitis. Patient signed consent She is hemodynamically stable. 2 units of blood ordered. She is given a dose of Protonix. Concern for probably GI bleeding although there was no stool in rectum so guaiac was grossly negative. Dr. Phillip accepts patient requests surgery consultation Dr. Ayoub consulted in regards to anemia Patient started blood transfusion. Within 20 minute started having reaction. She had mild flushing of cheeks anxious short of breath requiring 1-2 L of oxygen room air O2 is 93 94%. With hypertensive afebrile. No sign of anaphylaxis. She was treated for allergic reaction with Benadryl Solu-Medrol Pepcid. But due to the severe shortness of breath also given a dose of Lasix repeat chest x-ray also done. Transfusion had been stopped. Lab notified. Blood work rechecked. Dr. Phillip notified of reaction. 2:25p The patient actually seems to be improving, feeling better. Critical Care Time Critical Care Time Critical Care Time: Yes Total Critical Care Time: 45 Attestation: The high probability of a clinically significant, sudden or life threatening deterioration of the [cardiovascular] system(s) required my full and direct attention, intervention and personal management. The aggregate critical care time was [45] minutes. This time is in addition to time spent performing reported procedures but includes the following: [x] Data Review and interpretation [x] Patient assessment and monitoring of vital signs [x] Documentation [x] Medication orders and management Discharge Plan Departure Patient Disposition: Admitted As Inpatient Clinical Impression: Anemia Admit Date/Time: 02/11/22 14:32 Admit Provider: Nicolás Phillip
[2022-02-11 11:07] LABS: Hemoglobin 5.6 g/dL (12.0-16.0)
[2022-02-11 11:08] LABS: Hematocrit 18.4 % (36-46)
[2022-02-11 11:14] LABS: INR 1.5 (0.9-1.3); Prothrombin Time 17.1 SECONDS (10.1-12.7)
[2022-02-11 11:16] LABS: PTT Partial Thromboplastin Tim 43 SECONDS (26-36)
[2022-02-11 11:19] LABS: Lactate (Lactic Acid) 1.2 mmol/L (0.7-2.1)
[2022-02-11 11:21] LABS: Alanine Aminotransferase 9 IU/L (<35); Albumin Globulin Ratio 1.5 (1.0-2.8); Alkaline Phosphatase 85 U/L (38-126); Aspartate Aminotransferase 17 IU/L (14-36); BUN Creatinine Ratio 14.6 (6-22); Bilirubin Total 0.4 mg/dL (0.2-1.3); Blood Urea Nitrogen 13 mg/dL (7-17); Calcium 8.9 mg/dL (8.4-10.2); Carbon Dioxide 26 mmol/L (22-32); Chloride 105 mmol/L (98-107); Creatine Kinase 30 U/L (30-135); Estimated Glomerular Filt Rate > 60 mL/min (>60); Globulin 2.7 g/dL (1.7-4.1); Glucose 141 mg/dL (80-110); HEMOLYSIS < 15 (0-50); Lipase 41 U/L (23-300); Magnesium 2.1 mg/dL (1.6-2.3); Potassium 4.1 mmol/L (3.4-5.1); Sodium 139 mmol/L (137-145); Total Protein 6.7 g/dL (6.3-8.2)
[2022-02-11 11:30] LABS: Hypochromasia 2+; Microcytosis 2+
[2022-02-11 11:32] LABS: Troponin I < 0.012 ng/mL (0.01-0.034)
[2022-02-11 12:05] LABS: NT-proBNP (BNP-Adult 18+) 569 pg/mL (<450)
[2022-02-11] MEDS: PANTOPRAZOLE 40 MG VIAL IV ×2 (12:30→20:41)
[2022-02-11 13:05] LABS: HEMOLYSIS 33 (0-50); Iron 32 ug/dL (37-170)
[2022-02-11 13:16] LABS: Percent Iron Saturation 7 % (15-50); Total Iron Binding Capacity 459 ug/dL (265-497); Transferrin 357 mg/dL (206-381)
--- NOTE | 2022-02-11 13:21 | PC.NURSE ---
Patient transferred upstairs with blood infusion running. Transported with RN with continuous cardiac monitoring.
--- NOTE | 2022-02-11 13:39 | DI.RAD.S_ITS ---
PROCEDURE: XR CHEST 1V INDICATIONS: hypoxia TECHNIQUE: One view of the chest was acquired. COMPARISON: [facility], CR, XR CHEST 1V, 02/11/2022, 10:55. [facility], CR, XR CHEST 2V, 01/26/2018, 11:50. FINDINGS: Surgical changes and devices: Clips overlying the left heart border. Lumbar spine hardware. Lungs and pleura: No consolidation. Prominent pulmonary markings. No pleural effusions or pneumothorax. Mediastinum: Mediastinal contours appear normal. Heart size is at the upper limits of normal. Bones and chest wall: No suspicious bony lesions. Overlying soft tissues appear unremarkable. IMPRESSION: Possible pulmonary vasculature engorgement. Dictated by: Gabriel Barreto M.D. on 02/11/2022 at 15:03 Approved by: Gabriel Barreto M.D. on 02/11/2022 at 15:04
[2022-02-11] MEDS: diphenhydrAMINE 50 MG/ML VIAL IV ×3 (13:40→23:58)
[2022-02-11] MEDS: methylPREDNISolone 125 MG/2 ML VIAL IV (13:55)
[2022-02-11] MEDS: FUROSEMIDE 40 MG/4 ML VIAL 20 MG IV (13:56)
[2022-02-11] MEDS: FAMOTIDINE 20 MG/2 ML VIAL IV (13:56)
--- NOTE | 2022-02-11 14:00 | PC.NURSE ---
1328-Went into patient room to transfer her to ICU. Patient appeared short of breath, tachypnic. Stating her chest hurt and she feels flushed. Turned of blood transfusion immediately and notified provider, initiated EKG, and placed patient on 2L nasal cannula as she was at 93% on room air. Patient given IV Benadryl per order, patient's breathing improving and she states she is beginning to feel better.
[2022-02-11 15:40] LABS: COVID19 -Nasal RAPID Negative (Negative)
[2022-02-11 16:08] LABS: Hemoglobin 5.5 g/dL (12.0-16.0)
--- NOTE | 2022-02-11 18:15 | P.TELICUCN_ITS ---
History of Present Illness Consult details IF CAMERA ACTIVATED, patient seen via real-time interactive audiovisual communication: Camera activated Date Patient Seen: 02/11/22 Chief complaint: Reaction to medication/Sent by edouard Reason for consult: Anemia Consent obtained for tele-music educator care: Yes Patient Location: ICU Provider location (State): [place] Other participants/roles: Norma RN Narrative: Patient with significant history of hypertension and hyperlipidemia who presents with generalized weakness and palpitations. Denies SOB, melena, hematamesis, or abdominal pain. Last colonoscopy was 3 years ago and she has had EGD done many years ago [facility] she was told to take nexium for her hernia. On presentation she was found to have Hb 5.5 which she was transfused 1 U PRBC in ER and admitted to ICU for further management. In ICU, patient is pale appearing but speaking in full sentence. No complaints at this time. FOR[facility]LY [facility] Medical History Depression Hearing impaired HLD (hyperlipidemia) HTN (hypertension) Skin cancer Spinal stenosis Surgical History History of lumbar fusion (2004) Hx of hand surgery Status post cholecystectomy Status post hysterectomy Status post rotator cuff repair Social History household members: spouse Smoking Status: Former smoker alcohol intake: never Current Medications Current Medications Medications: Home Medications chlorthalidone 25 mg tablet 25 mg PO DAILY 07/11/18 [History Confirmed 11/30/19] duloxetine 30 mg capsule,delayed release 60 mg PO DAILY 07/11/18 [History Confirmed 11/30/19] lisinopril 20 mg tablet 20 mg PO BID 07/11/18 [History Confirmed 11/30/19] pravastatin 20 mg tablet 20 mg PO DAILY 07/11/18 [History Confirmed 11/30/19] esomeprazole magnesium 40 mg capsule,delayed release (Nexium) 40 mg PO DAILY 11/28/19 [History Confirmed 11/30/19] fexofenadine 60 mg tablet (Jazzy Allergy) 60 mg PO DAILY 11/28/19 [History Confirmed 11/30/19] docusate sodium 100 mg capsule (DOK) 100 mg PO BID PRN constipation #30 caps 12/02/19 [Rx] hydrocodone 5 mg-acetaminophen 325 mg tablet See Rx Instructions .Route .COMPLEX PRN Pain, Moderate (4-6) #50 tabs 12/02/19 [Rx] hydroxyzine pamoate 25 mg capsule 25 mg PO Q4HR PRN spasms #20 caps 12/02/19 [Rx] Exam Vital Signs (past 8 hours): - 02/11/22 10:48 02/11/22 10:58 02/11/22 12:51 Temperature 98.4 F 98.5 F Pulse Rate 89 76 68 Respiratory Rate 16 22 16 Blood Pressure 136/60 154/70 H Pulse Oximetry 97 98 Oxygen Delivery Method Room Air 02/11/22 12:53 02/11/22 13:28 02/11/22 13:33 Temperature 98.5 F 98.6 F Pulse Rate 63 92 H Respiratory Rate 22 35 H Blood Pressure 137/97 H 182/80 H Pulse Oximetry 99 Oxygen Delivery Method Room Air 02/11/22 11:00 02/11/22 11:01 02/11/22 11:01 Temperature Pulse Rate 72 74 Respiratory Rate 32 H 23 Blood Pressure 163/70 H Pulse Oximetry 97 97 Oxygen Delivery Method 02/11/22 11:30 02/11/22 11:30 02/11/22 12:00 Temperature Pulse Rate 64 62 Respiratory Rate 21 21 Blood Pressure 154/70 H Pulse Oximetry 97 98 Oxygen Delivery Method 02/11/22 12:30 02/11/22 13:18 02/11/22 13:09 Temperature 97.7 F Pulse Rate 63 66 Respiratory Rate 21 18 Blood Pressure 143/65 H Pulse Oximetry 97 99 Oxygen Delivery Method Room Air Room Air Room Air 02/11/22 12:53 02/11/22 12:53 02/11/22 13:00 Temperature Pulse Rate 64 Respiratory Rate 21 Blood Pressure 137/97 H 130/87 Pulse Oximetry 99 Oxygen Delivery Method 02/11/22 13:00 02/11/22 13:18 02/11/22 13:18 Temperature Pulse Rate 61 64 Respiratory Rate 18 21 Blood Pressure 143/65 H Pulse Oximetry 96 98 Oxygen Delivery Method 02/11/22 13:30 02/11/22 13:33 02/11/22 13:33 Temperature Pulse Rate 86 89 Respiratory Rate 47 H 35 H Blood Pressure 182/80 H Pulse Oximetry 93 92 Oxygen Delivery Method 02/11/22 13:44 02/11/22 13:44 02/11/22 13:45 Temperature Pulse Rate 72 Respiratory Rate 25 H Blood Pressure 159/65 H 148/67 H Pulse Oximetry 95 Oxygen Delivery Method 02/11/22 13:45 02/11/22 14:00 02/11/22 14:09 Temperature Pulse Rate 70 76 Respiratory Rate 26 H 20 Blood Pressure 144/69 H Pulse Oximetry 94 95 Oxygen Delivery Method 02/11/22 14:09 02/11/22 14:11 02/11/22 14:11 Temperature Pulse Rate 77 75 Respiratory Rate 26 H 21 Blood Pressure 157/67 H Pulse Oximetry 98 98 Oxygen Delivery Method 02/11/22 14:15 02/11/22 14:15 02/11/22 14:20 Temperature Pulse Rate 74 Respiratory Rate 21 Blood Pressure 158/69 H 162/70 H Pulse Oximetry 100 Oxygen Delivery Method 02/11/22 14:20 02/11/22 14:25 02/11/22 14:25 Temperature Pulse Rate 75 83 Respiratory Rate 19 26 H Blood Pressure 154/70 H Pulse Oximetry 98 97 Oxygen Delivery Method 02/11/22 14:30 02/11/22 14:30 02/11/22 15:00 Temperature Pulse Rate 73 68 Respiratory Rate 19 25 H Blood Pressure 147/67 H Pulse Oximetry 94 94 Oxygen Delivery Method 02/11/22 15:01 02/11/22 15:01 02/11/22 15:30 Temperature Pulse Rate 70 80 Respiratory Rate 23 20 Blood Pressure 142/65 H Pulse Oximetry 93 94 Oxygen Delivery Method 02/11/22 16:00 02/11/22 16:00 02/11/22 16:30 Temperature Pulse Rate 75 76 Respiratory Rate 23 20 Blood Pressure 142/100 H Pulse Oximetry 92 95 Oxygen Delivery Method 02/11/22 16:34 02/11/22 16:34 02/11/22 17:18 Temperature 97.3 F L Pulse Rate 73 76 Respiratory Rate 20 22 Blood Pressure 155/66 H 146/65 H Pulse Oximetry 95 Oxygen Delivery Method 02/11/22 17:37 02/11/22 17:00 02/11/22 17:03 Temperature 97.1 F L Pulse Rate 79 78 82 Respiratory Rate 20 23 31 H Blood Pressure 162/74 H Pulse Oximetry 94 94 Oxygen Delivery Method 02/11/22 17:30 02/11/22 17:46 02/11/22 17:46 Temperature Pulse Rate 79 78 Respiratory Rate 20 20 Blood Pressure 143/63 H Pulse Oximetry 96 95 Oxygen Delivery Method 02/11/22 18:00 02/11/22 18:00 Temperature Pulse Rate 79 Respiratory Rate 35 H Blood Pressure 158/65 H Pulse Oximetry 96 Oxygen Delivery Method Oxygen Delivery Method Room Air Objective Labs Result Diagrams: 02/11/22 15:58 02/11/22 10:52 Labs: Laboratory Results - last 24 hr 02/11/22 02/11/22 02/11/22 10:52 10:52 10:52 WBC 7.2 RBC 2.81 L Hgb 5.6 L* Hct 18.4 L* MCV 65.8 L MCH 19.8 L MCHC 30.2 RDW 20.4 H Plt Count 319 Neut % (Auto) 60.7 Lymph % (Auto) 21.0 L [place] % (Auto) 13.9 Eos % (Auto) 3.1 Baso % (Auto) 1.3 Neut # (Auto) 4400 Lymph # (Auto) 1500 [place] # (Auto) 1000 H Eos # (Auto) 200 Baso # (Auto) 100 RBC Morphology See below Hypochromasia 2+ H Microcytosis 2+ H PT 17.1 H INR 1.5 H APTT 43 H Sodium 139 Potassium 4.1 Chloride 105 Carbon Dioxide 26 BUN 13 Creatinine 0.89 Estimated GFR > 60 BUN/Creatinine Ratio 14.6 Glucose 141 H Lactate Calcium 8.9 Magnesium 2.1 Iron TIBC % Saturation Transferrin Total Bilirubin 0.4 AST 17 ALT 9 Alkaline Phosphatase 85 Total Creatine Kinase 30 CK-MB (CK-2) TNP CK-MB (CK-2) Rel Index TNP Troponin I < 0.012 NT-Pro-B Natriuret Pep Total Protein 6.7 Albumin 4.0 Globulin 2.7 Albumin/Globulin Ratio 1.5 Lipase 41 SARS-CoV-2 (PCR) Blood Type Antibody Screen Crossmatch Transfusion React Rpt Donor Unit # Lab Clerical Err Check Pre-Trans Blood Type Pre-Trans Vis Hemolysis Pre-Trans Antibody Scrn Post-Trans Blood Type Post-Tx Visible Hemolys Post-Trans Antibody Scrn 02/11/22 02/11/22 02/11/22 10:52 10:52 10:52 WBC RBC Hgb Hct MCV MCH MCHC RDW Plt Count Neut % (Auto) Lymph % (Auto) [place] % (Auto) Eos % (Auto) Baso % (Auto) Neut # (Auto) Lymph # (Auto) [place] # (Auto) Eos # (Auto) Baso # (Auto) RBC Morphology Hypochromasia Microcytosis PT INR APTT Sodium Potassium Chloride Carbon Dioxide BUN Creatinine Estimated GFR BUN/Creatinine Ratio Glucose Lactate 1.2 Calcium Magnesium Iron TIBC % Saturation Transferrin Total Bilirubin AST ALT Alkaline Phosphatase Total Creatine Kinase CK-MB (CK-2) CK-MB (CK-2) Rel Index Troponin I NT-Pro-B Natriuret Pep 569 H Total Protein Albumin Globulin Albumin/Globulin Ratio Lipase SARS-CoV-2 (PCR) Blood Type O Negative Antibody Screen Negative Crossmatch See Detail Transfusion React Rpt Donor Unit # Lab Clerical Err Check Pre-Trans Blood Type Pre-Trans Vis Hemolysis Pre-Trans Antibody Scrn Post-Trans Blood Type Post-Tx Visible Hemolys Post-Trans Antibody Scrn 02/11/22 02/11/22 02/11/22 10:52 13:56 15:23 WBC RBC Hgb Hct MCV MCH MCHC RDW Plt Count Neut % (Auto) Lymph % (Auto) [place] % (Auto) Eos % (Auto) Baso % (Auto) Neut # (Auto) Lymph # (Auto) [place] # (Auto) Eos # (Auto) Baso # (Auto) RBC Morphology Hypochromasia Microcytosis PT INR APTT Sodium Potassium Chloride Carbon Dioxide BUN Creatinine Estimated GFR BUN/Creatinine Ratio Glucose Lactate Calcium Magnesium Iron 32 L TIBC 459 % Saturation 7 L Transferrin 357 Total Bilirubin AST ALT Alkaline Phosphatase Total Creatine Kinase CK-MB (CK-2) CK-MB (CK-2) Rel Index Troponin I NT-Pro-B Natriuret Pep Total Protein Albumin Globulin Albumin/Globulin Ratio Lipase SARS-CoV-2 (PCR) Negative Blood Type Antibody Screen Crossmatch Transfusion React Rpt No discrepancies Donor Unit # [id number] Lab Clerical Err Check No error found Pre-Trans Blood Type Not Reportable Pre-Trans Vis Hemolysis No Pre-Trans Antibody Scrn Not Reportable Post-Trans Blood Type O negative Post-Tx Visible Hemolys No Post-Trans Antibody Scrn Not Reportable 02/11/22 15:58 WBC RBC Hgb 5.5 L* Hct MCV MCH MCHC RDW Plt Count Neut % (Auto) Lymph % (Auto) [place] % (Auto) Eos % (Auto) Baso % (Auto) Neut # (Auto) Lymph # (Auto) [place] # (Auto) Eos # (Auto) Baso # (Auto) RBC Morphology Hypochromasia Microcytosis PT INR APTT Sodium Potassium Chloride Carbon Dioxide BUN Creatinine Estimated GFR BUN/Creatinine Ratio Glucose Lactate Calcium Magnesium Iron TIBC % Saturation Transferrin Total Bilirubin AST ALT Alkaline Phosphatase Total Creatine Kinase CK-MB (CK-2) CK-MB (CK-2) Rel Index Troponin I NT-Pro-B Natriuret Pep Total Protein Albumin Globulin Albumin/Globulin Ratio Lipase SARS-CoV-2 (PCR) Blood Type Antibody Screen Crossmatch Transfusion React Rpt Donor Unit # Lab Clerical Err Check Pre-Trans Blood Type Pre-Trans Vis Hemolysis Pre-Trans Antibody Scrn Post-Trans Blood Type Post-Tx Visible Hemolys Post-Trans Antibody Scrn Assessment & Plan Assessment & Plan narrative: NEURO: -- On fall precaution -- Seek PT/OT and OOB as tolerated RESP: -- Encourage IS and OOB -- On room air CVS: # Palpitations -- Secondary to anemia vs A fib -- HIgh lytes goal - Monitor on telemetry HEME: # Microcytic anemia -- Secondary to iron deficiency anemia -- Recommend GI consultation for potential repeat colonoscopy -- Transfuse 2 U PRBC -- Repeat CBC -- Goal hb > 7 ENDO: -- Goal BS < 180 D/w patient and RN at bedside. Time Spent With Patient Time with patient: 30 to 49 minutes with 50% spent counseling/coordinating care Critical Care time: I spent a total of [] minutes of critical care time on this patient's care today; this time is exclusive of procedural time.
--- NOTE | 2022-02-11 19:04 | PM.CALLCOV.1 ---
Call Coverage Note Note Date of Patient Contact: 02/11/22 Time of Patient Contact: 19:04 Narrative of Care Provided: Plan for colonoscopy and EGD tomorrow 02/12. Prep tonight. Full note to follow.
--- NOTE | 2022-02-11 19:27 | P.HP_ITS ---
History of Present Illness History of Present Illness Date Patient Seen: 02/11/22 Time Patient Seen: 16:00 Chief complaint: Reaction to medication/Sent by doc Narrative: Eileen Yee is a 76yo female with PMH of A-fib on xarelto, HTN HLD and spinal stenosis s/p surgery with Dr. Esqueda who presents due outside blood test showing Hgb of 5. She states she was put on xarelto by A-fib by her tool keeper Dr. Bland 2 months ago then slowly began feeling more tired, weak and just overall not well. She continued taking her xarelto and did not notice any bleeding, melena or hematochezia. She takes celecoxib but denies other NSAID use. Her last colonoscopy was 4 years ago which showed diverticulosis. She is scheduled for an endoscopy as outpatient in mid-Feb. She denies CP, NV, SOB, diarrhea, or LE swelling. In the ED she received 2 units of blood and during the first bag she developed acute onset dyspnea and chest pressure. Concern was for TRALI so transfusion stopped and she received IV benadryl and steroids. CXR showed mild pulm edema so she was given lasix 20mg IV. Now on the floor she says her symptoms have resolved. She still feels very lethargic but denies current CP or SOB. Patient History Medical History Depression Hearing impaired HLD (hyperlipidemia) HTN (hypertension) Skin cancer Spinal stenosis Surgical History History of lumbar fusion (2004) Hx of hand surgery Status post cholecystectomy Status post hysterectomy Status post rotator cuff repair Family & Social History Social History: household members spouse Prior Living Arrangements House Safety & Behavioral: Feels Safe in Current Yes Environment Been Physically Hurt or No Threatened By a Person Tobacco & Substance use: Smoking Status Former smoker alcohol intake never alcohol intake frequency holiday/special occasion Substance Use Type does not use Meds Home Medications and Allergies Home Medications Medication Instructions Recorded Confirmed Type chlorthalidone 25 mg tablet 25 mg PO DAILY 07/11/18 11/30/19 History duloxetine 30 mg capsule,delayed 60 mg PO DAILY 07/11/18 11/30/19 History release lisinopril 20 mg tablet 20 mg PO BID 07/11/18 11/30/19 History pravastatin 20 mg tablet 20 mg PO DAILY 07/11/18 11/30/19 History esomeprazole magnesium 40 mg 40 mg PO DAILY 11/28/19 11/30/19 History capsule,delayed release (Nexium) fexofenadine 60 mg tablet (Jazzy 60 mg PO DAILY 11/28/19 11/30/19 History Allergy) docusate sodium 100 mg capsule 100 mg PO BID PRN constipation #30 12/02/19 Rx (DOK) caps hydrocodone 5 mg-acetaminophen 325 See Rx Instructions .Route 12/02/19 Rx mg tablet .COMPLEX PRN Pain, Moderate (4-6) #50 tabs hydroxyzine pamoate 25 mg capsule 25 mg PO Q4HR PRN spasms #20 caps 12/02/19 Rx Allergies Allergy/AdvReac Type Severity Reaction Status Date / Time celecoxib [From Celebrex] Allergy Severe Welts Verified 11/28/19 14:02 Penicillins [PENICILLINS] Allergy Severe Welts Verified 11/28/19 14:02 Sulfa (Sulfonamide Allergy Severe Welts Verified 11/28/19 14:02 Antibiotics) [SULFA (SULFONAMIDE ANTIBIOTICS)] codeine [CODEINE] AdvReac Severe Difficulty Verified 11/28/19 14:02 as a child, groggy acetaminophen [From Vicodin] AdvReac Gastrointestinal Verified 11/30/19 06:58 Upset hydrocodone [From Vicodin] AdvReac Gastrointestinal Verified 11/30/19 06:58 Upset Review of Systems Review of Systems Narrative: All other systems reviewed with the patient and are negative unless otherwise stated. Exam Vital Signs (past 8 hours): - 02/11/22 12:51 02/11/22 12:53 02/11/22 13:28 Temperature 98.5 F 98.5 F 98.6 F Pulse Rate 68 63 Respiratory Rate 16 22 Blood Pressure 154/70 H 137/97 H Pulse Oximetry 99 Oxygen Delivery Method Room Air 02/11/22 13:33 02/11/22 11:30 02/11/22 11:30 Temperature Pulse Rate 92 H 64 Respiratory Rate 35 H 21 Blood Pressure 182/80 H 154/70 H Pulse Oximetry 97 Oxygen Delivery Method 02/11/22 12:00 02/11/22 12:30 02/11/22 13:18 Temperature 97.7 F Pulse Rate 62 63 66 Respiratory Rate 21 21 18 Blood Pressure 143/65 H Pulse Oximetry 98 97 99 Oxygen Delivery Method Room Air Room Air 02/11/22 13:09 02/11/22 12:53 02/11/22 12:53 Temperature Pulse Rate 64 Respiratory Rate 21 Blood Pressure 137/97 H Pulse Oximetry 99 Oxygen Delivery Method Room Air 02/11/22 13:00 02/11/22 13:00 02/11/22 13:18 Temperature Pulse Rate 61 Respiratory Rate 18 Blood Pressure 130/87 143/65 H Pulse Oximetry 96 Oxygen Delivery Method 02/11/22 13:18 02/11/22 13:30 02/11/22 13:33 Temperature Pulse Rate 64 86 Respiratory Rate 21 47 H Blood Pressure 182/80 H Pulse Oximetry 98 93 Oxygen Delivery Method 02/11/22 13:33 02/11/22 13:44 02/11/22 13:44 Temperature Pulse Rate 89 72 Respiratory Rate 35 H 25 H Blood Pressure 159/65 H Pulse Oximetry 92 95 Oxygen Delivery Method 02/11/22 13:45 02/11/22 13:45 02/11/22 14:00 Temperature Pulse Rate 70 76 Respiratory Rate 26 H 20 Blood Pressure 148/67 H Pulse Oximetry 94 95 Oxygen Delivery Method 02/11/22 14:09 02/11/22 14:09 02/11/22 14:11 Temperature Pulse Rate 77 Respiratory Rate 26 H Blood Pressure 144/69 H 157/67 H Pulse Oximetry 98 Oxygen Delivery Method 02/11/22 14:11 02/11/22 14:15 02/11/22 14:15 Temperature Pulse Rate 75 74 Respiratory Rate 21 21 Blood Pressure 158/69 H Pulse Oximetry 98 100 Oxygen Delivery Method 02/11/22 14:20 02/11/22 14:20 02/11/22 14:25 Temperature Pulse Rate 75 Respiratory Rate 19 Blood Pressure 162/70 H 154/70 H Pulse Oximetry 98 Oxygen Delivery Method 02/11/22 14:25 02/11/22 14:30 02/11/22 14:30 Temperature Pulse Rate 83 73 Respiratory Rate 26 H 19 Blood Pressure 147/67 H Pulse Oximetry 97 94 Oxygen Delivery Method 02/11/22 15:00 02/11/22 15:01 02/11/22 15:01 Temperature Pulse Rate 68 70 Respiratory Rate 25 H 23 Blood Pressure 142/65 H Pulse Oximetry 94 93 Oxygen Delivery Method 02/11/22 15:30 02/11/22 16:00 02/11/22 16:00 Temperature Pulse Rate 80 75 Respiratory Rate 20 23 Blood Pressure 142/100 H Pulse Oximetry 94 92 Oxygen Delivery Method 02/11/22 16:30 02/11/22 16:34 02/11/22 16:34 Temperature Pulse Rate 76 73 Respiratory Rate 20 20 Blood Pressure 155/66 H Pulse Oximetry 95 95 Oxygen Delivery Method 02/11/22 17:18 02/11/22 17:37 02/11/22 17:00 Temperature 97.3 F L 97.1 F L Pulse Rate 76 79 78 Respiratory Rate 22 20 23 Blood Pressure 146/65 H 162/74 H Pulse Oximetry 94 Oxygen Delivery Method 02/11/22 17:03 02/11/22 17:30 02/11/22 17:46 Temperature Pulse Rate 82 79 78 Respiratory Rate 31 H 20 20 Blood Pressure Pulse Oximetry 94 96 95 Oxygen Delivery Method 02/11/22 17:46 02/11/22 18:00 02/11/22 18:00 Temperature Pulse Rate 79 Respiratory Rate 35 H Blood Pressure 143/63 H 158/65 H Pulse Oximetry 96 Oxygen Delivery Method 02/11/22 18:15 02/11/22 18:15 02/11/22 18:30 Temperature Pulse Rate 79 Respiratory Rate 31 H Blood Pressure 148/67 H 156/67 H Pulse Oximetry 97 Oxygen Delivery Method 02/11/22 18:30 02/11/22 18:46 02/11/22 18:46 Temperature Pulse Rate 78 85 Respiratory Rate 20 19 Blood Pressure 151/69 H Pulse Oximetry 94 94 Oxygen Delivery Method 02/11/22 19:00 02/11/22 19:00 Temperature Pulse Rate 84 Respiratory Rate 19 Blood Pressure 155/63 H Pulse Oximetry 94 Oxygen Delivery Method Oxygen Delivery Method Room Air Narrative Exam Narrative: GEN: no acute distress, very pale HEENT: moist mucous membranes, PERRL NECK: trachea midline, no JVD CV: regular rate and rhythm, no murmurs PULM: clear bilaterally ABD: soft, nontender, nondistended, no organomegaly EXT: warm and well perfused with no edema NEURO: awake, alert, oriented, no focal deficits Objective Labs Result Diagrams: 02/11/22 15:58 02/11/22 10:52 Labs: Laboratory Results - last 24 hr 02/11/22 02/11/22 02/11/22 10:52 10:52 10:52 WBC 7.2 RBC 2.81 L Hgb 5.6 L* Hct 18.4 L* MCV 65.8 L MCH 19.8 L MCHC 30.2 RDW 20.4 H Plt Count 319 Neut % (Auto) 60.7 Lymph % (Auto) 21.0 L [place] % (Auto) 13.9 Eos % (Auto) 3.1 Baso % (Auto) 1.3 Neut # (Auto) 4400 Lymph # (Auto) 1500 [place] # (Auto) 1000 H Eos # (Auto) 200 Baso # (Auto) 100 RBC Morphology See below Hypochromasia 2+ H Microcytosis 2+ H PT 17.1 H INR 1.5 H APTT 43 H Sodium 139 Potassium 4.1 Chloride 105 Carbon Dioxide 26 BUN 13 Creatinine 0.89 Estimated GFR > 60 BUN/Creatinine Ratio 14.6 Glucose 141 H Lactate Calcium 8.9 Magnesium 2.1 Iron TIBC % Saturation Transferrin Total Bilirubin 0.4 AST 17 ALT 9 Alkaline Phosphatase 85 Total Creatine Kinase 30 CK-MB (CK-2) TNP CK-MB (CK-2) Rel Index TNP Troponin I < 0.012 NT-Pro-B Natriuret Pep Total Protein 6.7 Albumin 4.0 Globulin 2.7 Albumin/Globulin Ratio 1.5 Lipase 41 SARS-CoV-2 (PCR) Blood Type Antibody Screen Crossmatch Transfusion React Rpt Donor Unit # Lab Clerical Err Check Pre-Trans Blood Type Pre-Trans Vis Hemolysis Pre-Trans Antibody Scrn Post-Trans Blood Type Post-Tx Visible Hemolys Post-Trans Antibody Scrn 02/11/22 02/11/22 02/11/22 10:52 10:52 10:52 WBC RBC Hgb Hct MCV MCH MCHC RDW Plt Count Neut % (Auto) Lymph % (Auto) [place] % (Auto) Eos % (Auto) Baso % (Auto) Neut # (Auto) Lymph # (Auto) [place] # (Auto) Eos # (Auto) Baso # (Auto) RBC Morphology Hypochromasia Microcytosis PT INR APTT Sodium Potassium Chloride Carbon Dioxide BUN Creatinine Estimated GFR BUN/Creatinine Ratio Glucose Lactate 1.2 Calcium Magnesium Iron TIBC % Saturation Transferrin Total Bilirubin AST ALT Alkaline Phosphatase Total Creatine Kinase CK-MB (CK-2) CK-MB (CK-2) Rel Index Troponin I NT-Pro-B Natriuret Pep 569 H Total Protein Albumin Globulin Albumin/Globulin Ratio Lipase SARS-CoV-2 (PCR) Blood Type O Negative Antibody Screen Negative Crossmatch See Detail Transfusion React Rpt Donor Unit # Lab Clerical Err Check Pre-Trans Blood Type Pre-Trans Vis Hemolysis Pre-Trans Antibody Scrn Post-Trans Blood Type Post-Tx Visible Hemolys Post-Trans Antibody Scrn 02/11/22 02/11/22 02/11/22 10:52 13:56 15:23 WBC RBC Hgb Hct MCV MCH MCHC RDW Plt Count Neut % (Auto) Lymph % (Auto) [place] % (Auto) Eos % (Auto) Baso % (Auto) Neut # (Auto) Lymph # (Auto) [place] # (Auto) Eos # (Auto) Baso # (Auto) RBC Morphology Hypochromasia Microcytosis PT INR APTT Sodium Potassium Chloride Carbon Dioxide BUN Creatinine Estimated GFR BUN/Creatinine Ratio Glucose Lactate Calcium Magnesium Iron 32 L TIBC 459 % Saturation 7 L Transferrin 357 Total Bilirubin AST ALT Alkaline Phosphatase Total Creatine Kinase CK-MB (CK-2) CK-MB (CK-2) Rel Index Troponin I NT-Pro-B Natriuret Pep Total Protein Albumin Globulin Albumin/Globulin Ratio Lipase SARS-CoV-2 (PCR) Negative Blood Type Antibody Screen Crossmatch Transfusion React Rpt No discrepancies Donor Unit # [id number] Lab Clerical Err Check No error found Pre-Trans Blood Type Not Reportable Pre-Trans Vis Hemolysis No Pre-Trans Antibody Scrn Not Reportable Post-Trans Blood Type O negative Post-Tx Visible Hemolys No Post-Trans Antibody Scrn Not Reportable 02/11/22 15:58 WBC RBC Hgb 5.5 L* Hct MCV MCH MCHC RDW Plt Count Neut % (Auto) Lymph % (Auto) [place] % (Auto) Eos % (Auto) Baso % (Auto) Neut # (Auto) Lymph # (Auto) [place] # (Auto) Eos # (Auto) Baso # (Auto) RBC Morphology Hypochromasia Microcytosis PT INR APTT Sodium Potassium Chloride Carbon Dioxide BUN Creatinine Estimated GFR BUN/Creatinine Ratio Glucose Lactate Calcium Magnesium Iron TIBC % Saturation Transferrin Total Bilirubin AST ALT Alkaline Phosphatase Total Creatine Kinase CK-MB (CK-2) CK-MB (CK-2) Rel Index Troponin I NT-Pro-B Natriuret Pep Total Protein Albumin Globulin Albumin/Globulin Ratio Lipase SARS-CoV-2 (PCR) Blood Type Antibody Screen Crossmatch Transfusion React Rpt Donor Unit # Lab Clerical Err Check Pre-Trans Blood Type Pre-Trans Vis Hemolysis Pre-Trans Antibody Scrn Post-Trans Blood Type Post-Tx Visible Hemolys Post-Trans Antibody Scrn Assessment & Plan Assessment & Plan narrative: # severe microcytic anemia -hemoglobin 5.6 on admission inpatient lethargic and weak, likely secondary to xarelto use and chronic as MCV of 65 -received half a unit of blood in the ED where it was stopped due to possible TRALI -repeat hemoglobin 5.5 so another unit ordered IV Benadryl prior and a very slow rate -IV Lasix 40 mg following unit, recheck hemoglobin following -hold home xarelto, obtain fecal occult -General surg consulted for scopes -NPO at midnight -monitor Hgb and transfuse <7 -PPI 40mg IV BID # Possible TRALI -became dyspneic with chest pressure during blood transfusion -tolerating 2nd unit at slower rate with IV benadryl prior and lasix to follow -monitor closely # paroxysmal A-fib -Dr. Bland her tool keeper texted and aware of admission -hold home xarelto # HTN, chronic -continue home chlorthalidone and lisinopril # HLD, chronic -continue home pravastatin # depression -continue home duloxetine # GERD -PPI as above Code status is full code. COVID negative. DVT prophylaxis with SCDs. Proxy is Ramon Yee . I have reviewed home meds and used all available resources to reconcile the home meds. Time Spent With Patient Critical Care time: I spent a total of [] minutes of critical care time on this patient's care today; this time is exclusive of procedural time. Quality VTE Deep Vein Thrombosis/Pulmonary Embolism Present on Admission: Yes
[2022-02-11] MEDS: FUROSEMIDE 40 MG/4 ML VIAL IV (20:50)
[2022-02-11] MEDS: PEG3350/SOD SULF,BICARB,CL/KCL 4,000 ML SOLUTION 4000 ML PO (22:13)
--- NOTE | 2022-02-11 23:19 | PC.NURSE ---
Pt refused to take Lisinopril, stating she does not take it. BP 141/57. Hospitalist notified. Ordered to keep her updated if BP starts to elevate.
[2022-02-12] VITALS (54 sets, daily range): BP systolic 115–202; BP diastolic 59–121; PULSE 58–88; RESP 12–58; TEMP 35.7–37.1; O2SAT 90–100; BMI 29.2
[2022-02-12 00:54] LABS: Hemoglobin 9.2 g/dL (12.0-16.0)
[2022-02-12 00:57] LABS: Hematocrit 28.6 % (36-46)
[2022-02-12] MEDS: MELATONIN 3 MG TABLET 9 MG PO ×2 (04:16→20:28)
[2022-02-12 05:37] LABS: BUN Creatinine Ratio 16.3 (6-22); Blood Urea Nitrogen 16 mg/dL (7-17); Calcium 8.4 mg/dL (8.4-10.2); Carbon Dioxide 31 mmol/L (22-32); Chloride 97 mmol/L (98-107); Estimated Glomerular Filt Rate 59 mL/min (>60); Glucose 137 mg/dL (80-110); HEMOLYSIS < 15 (0-50); Potassium 3.2 mmol/L (3.4-5.1); Sodium 138 mmol/L (137-145)
[2022-02-12] MEDS: POTASSIUM CHLORIDE 20 MEQ TAB PO (06:00)
[2022-02-12 06:19] LABS: Add Manual Diff / Slide Review SLIDE REVIEW; Basophils Absolute Auto 0 /uL (0-100); Basophils Percent Auto 0.1 % (0-2); Eosinophils Absolute Auto 0 /uL (0-450); Hematocrit 26.7 % (36-46); Hemoglobin 8.6 g/dL (12.0-16.0); Lymphocytes Absolute Auto 900 /uL (1100-4500); Lymphocytes Percent Auto 7.6 % (25-40); Mean Corpuscular HGB Conc 32.3 % (30-36); Mean Corpuscular Hemoglobin 22.5 PG (26-34); Mean Corpuscular Volume 69.7 fL (80-100); Monocytes Absolute Auto 400 /uL (0-900); Monocytes Percent Auto 3.2 % (3-14); Neutrophils Absolute Auto 10200 /uL (1500-7000); Neutrophils Percent Auto 89.1 % (50-75); Platelet Count 314 X10^3/uL (150-400); Red Blood Cell Count 3.82 X10^6/uL (4.0-5.2); Red Cell Distribution Width 23.4 % (11.6-14.8); White Blood Cell Count 11.4 X10^3/uL (4.5-11.0)
[2022-02-12 08:08] LABS: Anisocytosis 1+; Hypochromasia 1+; Microcytosis 1+
[2022-02-12] MEDS: PRAVASTATIN 20 MG TABLET PO (08:49)
[2022-02-12] MEDS: PANTOPRAZOLE 40 MG VIAL IV ×2 (08:49→20:29)
[2022-02-12] MEDS: DULOXETINE 30 MG CAPSULE 60 MG PO (08:49)
--- NOTE | 2022-02-12 10:43 | PC.NURSE ---
Addendum entered by Elena Goldman R.N. 02/12/22 18:16: 1800 - Patient returned from PACU. Alert and oriented with pleasant affect. Denies pain or discomfort. Blood pressure noted to be [address] Hurst and received okay to give this evening's losartan dose now. Addendum entered by Elena Goldman R.N. 02/12/22 16:42: 1630 - Patient taken down to preop for EGD and colonoscopy. Original Note: Patient states blood pressure medications are not correct with what she has been taking at home. Patient had this nurse speak with her (who is at home) and verified patient's current home medications. Updated in computer and updated Dr. Hurst about this as well.
--- NOTE | 2022-02-12 13:25 | CM.DANOTE ---
DCP Assessment: Payor: Medicare Confirmed PCP: Nahid Mitchell MD Pt is a 76 y.o. F who presented to the ER by her provider and her chief complaint is increased fatigue. She had outpatient lab work done and it showed a Hct of 18.4 and hgb 5.6. Pt has PMH of HTN, HLD, and depression. Pt admitted for further evaluation and management of pt symptoms and diagnosis. DCP met with pt this afternoon to discuss discharge planning needs. Pt laying in bed watching TV and prepping for her EGD and colonoscopy procedure today. Pt states she lives in a mobile home in [place] with her , Ramon. Pt states that she uses a walker and still drives POV. Pt states she is fairly independent with minimal assistance. Pt states that her procedure today will be at 1600. Pt denies any resources at this time. Pt states she hopes to go home soon. DCP to continue to follow. Whiteboard updated and instructed to call. Pt thankful for discussion. P: Pt to have EGD and colonoscopy @ 1600 today. Once medically stable, pt to discharge home via daughter or POV. Jess Charles RN/HAILYP Discharge Planning/Care Management CM Discharge Assessment Start: 02/12/22 13:19 Freq: Status: Active Protocol: Document 02/12/22 13:20 EASTON (Rec: 02/12/22 13:21 EASTON [id number]) Discharge Planning Assessment Assigned Tilt Wall Supervisor Jess Charles RN/OLYA Advance Directives? Yes Advance Directives on File No History Provided By Patient,Medical Record Prior Living Arrangements Mobile home Household Members spouse Type of transporation used prior to Drives own vehicle admit Independent with ADL's Yes Is patient alert and oriented? Yes Caregiver for Another No DME Already Rented / Owned FWW / Walker Barriers to Discharge No Discharge Plan Home Referrals Initiated None needed Additional Comment At this time Whiteboard Updated in Patient Room with Yes name and ext. # of Tilt Wall Supervisor Comment Instructed to call Review Status In Process Please Provide Date Initial DC 02/12/22 Assessment Was Performed Next Review Type Continued Stay Review
--- NOTE | 2022-02-12 16:33 | PM.CN ---
History of Present Illness Consult details Date Patient Seen: 02/12/22 Time Patient Seen: 16:33 Chief complaint: Reaction to medication/Sent by doc Narrative: Ruth Yee is a 76-year-old woman who has felt fatigued and short of breath for several weeks. She had labs drawn yesterday and was found to be profoundly anemic and was referred to the ER. She denies noticing rectal bleeding or melena. She has not vomited. She recently started on Xarelto for paroxysmal atrial fibrillation. She was given 2 units of blood since she came to the hospital last night. She started taking her prep last night. Meds Home Medications and Allergies Home Medications Medication Instructions Recorded Confirmed Type duloxetine 30 mg capsule,delayed 60 mg PO DAILY 07/11/18 02/12/22 History release pravastatin 20 mg tablet 20 mg PO DAILY 07/11/18 02/12/22 History hydrocodone 5 mg-acetaminophen 325 See Rx Instructions .Route 12/02/19 Rx mg tablet .COMPLEX PRN Pain, Moderate (4-6) #50 tabs hydroxyzine pamoate 25 mg capsule 25 mg PO Q4HR PRN spasms #20 caps 12/02/19 Rx amlodipine 5 mg tablet 5 mg PO DAILY 02/12/22 02/12/22 History carvedilol 6.25 mg tablet 6.25 mg PO BID 02/12/22 02/12/22 History dupilumab 300 mg/2 mL subcutaneous See Rx Instructions .Route .COMPLEX 02/12/22 02/12/22 History pen injector (Dupixent) fluticasone 250 mcg-salmeterol 50 1 inh inhalation BID 02/12/22 02/12/22 History mcg/dose blistr powdr for inhalation (Advair Diskus) losartan 50 mg tablet 50 mg PO BID 02/12/22 02/12/22 History magnesium 1 tab PO DAILY 02/12/22 02/12/22 History potassium chloride 10 mEq 10 meq PO DAILY 02/12/22 02/12/22 History tablet,extended release(part/cryst) (Klor-Con M) Allergies Allergy/AdvReac Type Severity Reaction Status Date / Time celecoxib [From Celebrex] Allergy Severe Welts Verified 02/12/22 16:32 Penicillins [PENICILLINS] Allergy Severe Welts Verified 02/12/22 16:32 Sulfa (Sulfonamide Allergy Severe Welts Verified 02/12/22 16:32 Antibiotics) [SULFA (SULFONAMIDE ANTIBIOTICS)] codeine [CODEINE] AdvReac Severe Difficulty Verified 02/12/22 16:32 as a child, groggy acetaminophen [From Vicodin] AdvReac Gastrointestinal Verified 02/12/22 16:32 Upset hydrocodone [From Vicodin] AdvReac Gastrointestinal Verified 02/12/22 16:32 Upset Exam Vital Signs (past 8 hours): - 02/12/22 12:00 02/12/22 16:00 Temperature 97.4 F L 97.1 F L Pulse Rate 68 Respiratory Rate 19 Blood Pressure 171/84 H Pulse Oximetry 96 Oxygen Flow Rate 0 Oxygen Delivery Method Room Air Oxygen Flow Rate 0 Const General: No acute distress Resp Effort & Inspection: normal respiratory effort Objective Labs Result Diagrams: 02/12/22 04:46 02/12/22 04:46 Labs: Laboratory Results - last 24 hr 02/11/22 02/11/22 02/12/22 10:52 13:56 00:36 WBC RBC Hgb 9.2 L Hct 28.6 L MCV MCH MCHC RDW Plt Count Neut % (Auto) Lymph % (Auto) [place] % (Auto) Eos % (Auto) Baso % (Auto) Neut # (Auto) Lymph # (Auto) [place] # (Auto) Eos # (Auto) Baso # (Auto) RBC Morphology Hypochromasia Anisocytosis Microcytosis Sodium Potassium Chloride Carbon Dioxide BUN Creatinine Estimated GFR BUN/Creatinine Ratio Glucose Calcium Blood Type O Negative Antibody Screen Negative Crossmatch See Detail Pre-Trans Antibody Scrn TNP Post-Trans Antibody Scrn TNP Reaction Path Interpret 02/12/22 02/12/22 04:46 04:46 WBC 11.4 H D RBC 3.82 L Hgb 8.6 L Hct 26.7 L MCV 69.7 L D MCH 22.5 L MCHC 32.3 RDW 23.4 H Plt Count 314 Neut % (Auto) 89.1 H D Lymph % (Auto) 7.6 L [place] % (Auto) 3.2 Eos % (Auto) 0.0 L Baso % (Auto) 0.1 Neut # (Auto) 86324 H Lymph # (Auto) 900 L [place] # (Auto) 400 Eos # (Auto) 0 Baso # (Auto) 0 RBC Morphology Not Reportable Hypochromasia 1+ H Anisocytosis 1+ H Microcytosis 1+ H Sodium 138 Potassium 3.2 L Chloride 97 L Carbon Dioxide 31 BUN 16 Creatinine 0.98 Estimated GFR 59 L BUN/Creatinine Ratio 16.3 Glucose 137 H Calcium 8.4 Blood Type Antibody Screen Crossmatch Pre-Trans Antibody Scrn Post-Trans Antibody Scrn Reaction Path Interpret PFSH Medical History Depression Hearing impaired HLD (hyperlipidemia) HTN (hypertension) Skin cancer Spinal stenosis Surgical History History of lumbar fusion (2004) Hx of hand surgery Status post cholecystectomy Status post hysterectomy Status post rotator cuff repair Social History household members: spouse Tobacco & Substance Use Smoking Status: Former smoker alcohol intake: never Assessment & Plan Assessment and plan (1) Anemia: Qualifiers: Anemia type: unspecified type Qualified Code(s): D64.9 - Anemia, unspecified Status: Acute Plan 76-year-old woman with anemia suspected GI bleed. We will perform an upper and lower endoscopy today. Risks and benefits were discussed she would like to proceed. Time Spent With Patient Critical Care time: I spent a total of [] minutes of critical care time on this patient's care today; this time is exclusive of procedural time.
--- NOTE | 2022-02-12 17:21 | PM.OP.EC ---
Operative Date/Time/Diagnoses Date of procedure: 02/12/22 Time of procedure: 17:21 Pre-op diagnosis: Anemia Post-op diagnosis: same Procedure & Clinicians Study performed: Esophagogastroduodenoscopy and colonoscopy Same procedure as scheduled: Yes Surgeon: Addi Tracy Procedure Notes Procedure in detail: Surgeon: Addi Tracy MD Anesthesia: MAC by Dr. Martinez Procedure in detail: A timeout was performed. A bite blocked was placed. The patient was positioned in a left lateral decubitus position. Mac was administered by Dr. Martinez. Once the patient was sedated the endoscope was inserted through the bite block and passed through the esophagus and stomach and into the duodenum. No abnormalities were noted in the duodenum or stomach. The endoscope was retroflexed and a small hiatal hernia was seen. The endoscope was straightned and withdrawn into the esophagus. The esophagus appeared normal. Findings: Normal EGD Next we repositioned the patient for a colonoscopy. A digital rectal exam was performed and was normal. The colonoscope was inserted and advanced to the cecum. The appendiceal orifice could not be visualized due to the suboptimal prep however the cecal vault and ileocecal valve were visualized. The scope was slowly withdrawn and the colonic mucosa was inspected and no abnormalities were seen. The scope was retroflexed in the rectum and no abnormality was noted. Findings: Normal colon EBL: 0 Scope withdrawal time: 4 Post-procedure Plan for aftercare: No evidence of GI bleed. Consider CT scan to rule out retroperitoneal bleed Disposition: PACU
--- NOTE | 2022-02-12 17:47 | SUR.PHASEI ---
Pt A&Ox4, denies any distress, VSS, and ready to transfer to room. Report given to receiving RN using SBAR with time allowed for questions. Pt transferred to room 229, bedside handoff completed.
[2022-02-12] MEDS: LOSARTAN 50 MG TABLET PO (18:07)
[2022-02-12 20:12] LABS: Hematocrit 28.4 % (36-46)
[2022-02-12] MEDS: METOPROLOL TARTRATE 5 MG/5 ML INJ IV (20:58)
[2022-02-13] VITALS (38 sets, daily range): BP systolic 147–214; BP diastolic 65–86; PULSE 53–100; RESP 9–47; TEMP 36.4–36.7; O2SAT 91–98
[2022-02-13 05:32] LABS: Add Manual Diff / Slide Review NO; Basophils Absolute Auto 100 /uL (0-100); Basophils Percent Auto 1.2 % (0-2); Eosinophils Absolute Auto 200 /uL (0-450); Eosinophils Percent Auto 1.8 % (2-4); Hematocrit 26.1 % (36-46); Hemoglobin 8.4 g/dL (12.0-16.0); Lymphocytes Absolute Auto 3000 /uL (1100-4500); Lymphocytes Percent Auto 29.3 % (25-40); Mean Corpuscular HGB Conc 32.1 % (30-36); Mean Corpuscular Hemoglobin 22.6 PG (26-34); Mean Corpuscular Volume 70.5 fL (80-100); Monocytes Absolute Auto 1200 /uL (0-900); Monocytes Percent Auto 12.1 % (3-14); Neutrophils Absolute Auto 5700 /uL (1500-7000); Neutrophils Percent Auto 55.6 % (50-75); Platelet Count 315 X10^3/uL (150-400); Red Cell Distribution Width 24.1 % (11.6-14.8); White Blood Cell Count 10.2 X10^3/uL (4.5-11.0)
[2022-02-13 05:39] LABS: BUN Creatinine Ratio 16.3 (6-22); Blood Urea Nitrogen 15 mg/dL (7-17); Calcium 8.3 mg/dL (8.4-10.2); Carbon Dioxide 34 mmol/L (22-32); Chloride 101 mmol/L (98-107); Estimated Glomerular Filt Rate > 60 mL/min (>60); Glucose 94 mg/dL (80-110); HEMOLYSIS < 15 (0-50); Potassium 3.1 mmol/L (3.4-5.1); Sodium 140 mmol/L (137-145)
[2022-02-13 06:10] LABS: Polychromasia 1+
[2022-02-13 06:11] LABS: Anisocytosis 2+; Hypochromasia 1+; Microcytosis 1+
[2022-02-13] MEDS: DULOXETINE 30 MG CAPSULE 60 MG PO (09:51)
[2022-02-13] MEDS: LOSARTAN 50 MG TABLET PO (09:51)
[2022-02-13] MEDS: PANTOPRAZOLE 40 MG VIAL IV (09:51)
[2022-02-13] MEDS: PRAVASTATIN 20 MG TABLET PO (09:51)
[2022-02-13] MEDS: POTASSIUM CHLORIDE 20 MEQ TAB 40 MEQ PO (13:01)
[2022-02-13 13:18] LABS: Hematocrit 29.8 % (36-46); Hemoglobin 9.3 g/dL (12.0-16.0)
[2022-02-13] MEDS: AMLODIPINE 5 MG TABLET PO (14:06)
[2022-02-13] MEDS: carvediloL 3.125 MG TABLET 6.25 MG PO (14:06)
--- NOTE | 2022-02-13 14:22 | PM.DS.1 ---
History of Present Illness History of Present Illness Date Patient Seen: 02/13/22 Chief complaint: Reaction to medication/Sent by doc Narrative: Per Dr. Phillip, Eileen Yee is a 76yo female with PMH of A-fib on xarelto, HTN HLD and spinal stenosis s/p surgery with Dr. Esqueda who presents due outside blood test showing Hgb of 5. She states she was put on xarelto by A-fib by her crushed stone grader Dr. Bland 2 months ago then slowly began feeling more tired, weak and just overall not well. She continued taking her xarelto and did not notice any bleeding, melena or hematochezia. She takes celecoxib but denies other NSAID use. Her last colonoscopy was 4 years ago which showed diverticulosis. She is scheduled for an endoscopy as outpatient in mid-Feb. She denies CP, NV, SOB, diarrhea, or LE swelling. In the ED she received 2 units of blood and during the first bag she developed acute onset dyspnea and chest pressure. Concern was for TRALI so transfusion stopped and she received IV benadryl and steroids. CXR showed mild pulm edema so she was given lasix 20mg IV. Now on the floor she says her symptoms have resolved. She still feels very lethargic but denies current CP or SOB. Discharge Providers Provider Date of admission: 02/11/22 14:32 Discharge Date: 02/13/22 Primary care physician: Nahid Mitchell MD Consults: 02/11/22 13:13 Consult to General Surgery Routine Comment: Consulting Provider: Manoj Ayoub Reason for consultation: anemia-GI bleed? Has provider been notified: Yes Discharge provider: Honorio Hurst DO Summary Hospital Course Discharge Diagnosis: # severe microcytic anemia # Possible TRALI # paroxysmal A-fib # HTN, chronic # HLD, chronic # depression # GERD Hospital Course: This is a 76-year-old female at that history of paroxysmal atrial fibrillation on anticoagulation, status post recent ablation, hypertension, hyperlipidemia, depression, and GERD who was admitted for a severe microcytic anemia with a hemoglobin of 5.5. Patient was transfused in the emergency room with development of possible TRALI. She was given Benadryl and her rate was slowed with improvement in her symptoms. Her hemoglobin improved to above 8 but waxed and waned. EGD and colonoscopy was performed by General surgery which did not reveal a cause of bleeding. She had no abdominal symptoms and no evidence of active bleeding at this time. She was eating and tolerating a diet, and her overall trend in her hemoglobin was rising at the time of discharge. Her anticoagulation was held, and she was started on a PPI empirically. I recommend that she continue PPI at this time, despite her negative EGD at least for a brief period of time given her improvement. I do recommend follow-up with her primary care provider for GI referral and possible capsule endoscopy as an outpatient or further workup for her microcytic anemia as deemed appropriate. Time Spent with Patient Time spent: Greater than 30 minutes Exam Vital Signs (past 8 hours): - 02/13/22 06:30 02/13/22 09:16 02/13/22 13:50 Temperature 98.0 F 97.6 F Pulse Rate 59 L 65 70 Respiratory Rate 18 16 24 Blood Pressure 188/86 H 189/83 H Pulse Oximetry 96 98 Oxygen Flow Rate 0 0 Oxygen Delivery Method Room Air Oxygen Flow Rate 0 Narrative Exam Narrative: GEN: no acute distress, slight pallor. HEENT: moist mucous membranes, PERRL NECK: trachea midline, no JVD CV: regular rate and rhythm, no murmurs PULM: clear bilaterally ABD: soft, nontender, nondistended, no organomegaly EXT: warm and well perfused with no edema NEURO: awake, alert, oriented, no focal deficits Objective Labs Result Diagrams: 02/13/22 13:00 02/13/22 05:17 Labs: Laboratory Results - last 24 hr 02/12/22 02/13/22 02/13/22 20:05 05:17 05:17 WBC 10.2 RBC 3.70 L Hgb 9.0 L 8.4 L Hct 28.4 L 26.1 L MCV 70.5 L MCH 22.6 L MCHC 32.1 RDW 24.1 H Plt Count 315 Neut % (Auto) 55.6 D Lymph % (Auto) 29.3 D [place] % (Auto) 12.1 Eos % (Auto) 1.8 L Baso % (Auto) 1.2 Neut # (Auto) 5700 Lymph # (Auto) 3000 [place] # (Auto) 1200 H Eos # (Auto) 200 Baso # (Auto) 100 RBC Morphology See below Polychromasia 1+ H Hypochromasia 1+ H Anisocytosis 2+ H Microcytosis 1+ H Sodium 140 Potassium 3.1 L Chloride 101 Carbon Dioxide 34 H BUN 15 Creatinine 0.92 Estimated GFR > 60 BUN/Creatinine Ratio 16.3 Glucose 94 Calcium 8.3 L 02/13/22 13:00 WBC RBC Hgb 9.3 L Hct 29.8 L MCV MCH MCHC RDW Plt Count Neut % (Auto) Lymph % (Auto) [place] % (Auto) Eos % (Auto) Baso % (Auto) Neut # (Auto) Lymph # (Auto) [place] # (Auto) Eos # (Auto) Baso # (Auto) RBC Morphology Polychromasia Hypochromasia Anisocytosis Microcytosis Sodium Potassium Chloride Carbon Dioxide BUN Creatinine Estimated GFR BUN/Creatinine Ratio Glucose Calcium PFSH Medical History Depression Hearing impaired HLD (hyperlipidemia) HTN (hypertension) Skin cancer Spinal stenosis Surgical History History of lumbar fusion (2004) Hx of hand surgery Status post cholecystectomy Status post hysterectomy Status post rotator cuff repair Social History household members: spouse Smoking Status: Former smoker alcohol intake: never Discharge Plan Discharge Plan Patient Disposition: Home Provider Discharge Comment: You were admitted to the hospital with anemia. No obvious source was found on EGD or colonoscopy. Your blood thinner was stopped. pantoprazole started as a precaution. Please follow up with your PCP and crushed stone grader. PCP may want to refer to GI for capsule endoscopy depending on how you're doing in a few weeks. Discharge orders & Medications Prescriptions: New pantoprazole 40 mg tablet,delayed release (DR/EC) 40 mg PO DAILY 30 Days Qty: 30 0RF Continued pravastatin 20 mg tablet 20 mg PO DAILY duloxetine 30 mg capsule,delayed release(DR/EC) 60 mg PO DAILY Label Comments: TK 1 C PO QD hydrocodone-acetaminophen 5-325 mg Tablet See Rx Instructions .ROUTE .COMPLEX PRN (Reason: Pain, Moderate (4-6)) Qty: 50 0RF Rx Instructions: 1-2 PO q4h prn pain hydroxyzine pamoate 25 mg Capsule 25 mg PO Q4HR PRN (Reason: spasms) Qty: 20 0RF losartan 50 mg tablet 50 mg PO BID fluticasone propion-salmeterol [Advair Diskus] 250-50 mcg/dose blister with device 1 inh INHALATION BID carvedilol 6.25 mg tablet 6.25 mg PO BID amlodipine 5 mg tablet 5 mg PO DAILY potassium chloride [Klor-Con M10] 10 mEq tablet,ER particles/crystals 10 meq PO DAILY Dupixent Pen 300 mg/2 mL pen injector See Rx Instructions .ROUTE .COMPLEX Rx Instructions: every other week magnesium Tablet 1 tab PO DAILY Rx Instructions: stated 40mg tablet Follow up/Referrals: Nahid Mitchell MD [Primary Care Provider] - Diet/Activity/Treatments Diet: Diet as Tolerated Activity: As tolerated Visit Report/Discharge Packet Instructions: Anemia, DI for Heart Failure Discharge Data Primary Care Provider: Nahid Mitchell Quality VTE Deep Vein Thrombosis/Pulmonary Embolism Present on Admission: Yes
--- NOTE | 2022-02-13 15:15 | PC.NURSE ---
Addendum entered by Elena Goldman R.N. 02/13/22 16:00: Pharmacist came and did discharge medication instruction with patient. Patient's arrived to pick her up. Patient taken out of building in wheelchair by nursing staff with all belongings and discharge paperwork at 1600 Original Note: Patient alert and oriented with pleasant affect this shift. Able to make needs known and steady on her feet. BLood pressure elevated this morning and afternoon; Dr. Hurst updated (see emar for new orders for amlodipine and carvedilol). Patient received orders for discharge. Dr. Hurst aware of blood pressure and states patient may discharge. Blood pressure now 156/68. All discharge instructions and medications gone over in detail with patient. Patient denies any questions. Knows to make followup appointment with pcp and petrophysical engineer. IV removed per protocol and tele removed. Patient called spouse and is awaiting ride.
--- NOTE | 2022-02-13 18:29 | P.PN_ITS ---
Subjective Subjective Date Patient Seen: 02/12/22 Interval history: 76 year old female admitted with anemia. EGD and colonoscopy was unremarkable. h/h declined slightly will continue to monitor further overnight for possible bleeding. Exam Vital Signs (past 8 hours): - 02/13/22 13:50 02/13/22 10:30 02/13/22 11:00 Temperature 97.6 F Pulse Rate 70 66 65 Respiratory Rate 24 16 16 Blood Pressure 189/83 H Pulse Oximetry 98 Oxygen Flow Rate 0 02/13/22 11:30 02/13/22 12:00 02/13/22 12:30 Temperature Pulse Rate 60 61 66 Respiratory Rate 17 17 15 Blood Pressure Pulse Oximetry Oxygen Flow Rate 02/13/22 13:00 02/13/22 13:31 02/13/22 13:51 Temperature Pulse Rate 78 100 H Respiratory Rate 32 H 47 H Blood Pressure 189/83 H Pulse Oximetry Oxygen Flow Rate 02/13/22 13:51 02/13/22 14:00 02/13/22 14:30 Temperature Pulse Rate 70 71 68 Respiratory Rate 24 28 H 19 Blood Pressure Pulse Oximetry 98 Oxygen Flow Rate 02/13/22 14:56 02/13/22 14:59 Temperature Pulse Rate 77 70 Respiratory Rate 28 H Blood Pressure 156/68 H Pulse Oximetry Oxygen Flow Rate Oxygen Delivery Method Room Air Oxygen Flow Rate 0 Narrative Exam Narrative: GEN: no acute distress, slight pallor. HEENT: moist mucous membranes, PERRL NECK: trachea midline, no JVD CV: regular rate and rhythm, no murmurs PULM: clear bilaterally ABD: soft, nontender, nondistended, no organomegaly EXT: warm and well perfused with no edema NEURO: awake, alert, oriented, no focal deficits Objective Labs Result Diagrams: 02/13/22 13:00 02/13/22 05:17 Labs: Laboratory Results - last 24 hr 02/12/22 02/13/22 02/13/22 20:05 05:17 05:17 WBC 10.2 RBC 3.70 L Hgb 9.0 L 8.4 L Hct 28.4 L 26.1 L MCV 70.5 L MCH 22.6 L MCHC 32.1 RDW 24.1 H Plt Count 315 Neut % (Auto) 55.6 D Lymph % (Auto) 29.3 D [place] % (Auto) 12.1 Eos % (Auto) 1.8 L Baso % (Auto) 1.2 Neut # (Auto) 5700 Lymph # (Auto) 3000 [place] # (Auto) 1200 H Eos # (Auto) 200 Baso # (Auto) 100 RBC Morphology See below Polychromasia 1+ H Hypochromasia 1+ H Anisocytosis 2+ H Microcytosis 1+ H Sodium 140 Potassium 3.1 L Chloride 101 Carbon Dioxide 34 H BUN 15 Creatinine 0.92 Estimated GFR > 60 BUN/Creatinine Ratio 16.3 Glucose 94 Calcium 8.3 L 02/13/22 13:00 WBC RBC Hgb 9.3 L Hct 29.8 L MCV MCH MCHC RDW Plt Count Neut % (Auto) Lymph % (Auto) [place] % (Auto) Eos % (Auto) Baso % (Auto) Neut # (Auto) Lymph # (Auto) [place] # (Auto) Eos # (Auto) Baso # (Auto) RBC Morphology Polychromasia Hypochromasia Anisocytosis Microcytosis Sodium Potassium Chloride Carbon Dioxide BUN Creatinine Estimated GFR BUN/Creatinine Ratio Glucose Calcium PFSH Medical History Depression Hearing impaired HLD (hyperlipidemia) HTN (hypertension) Skin cancer Spinal stenosis Surgical History History of lumbar fusion (2004) Hx of hand surgery Status post cholecystectomy Status post hysterectomy Status post rotator cuff repair Social History household members: spouse Smoking Status: Former smoker alcohol intake: never Assessment & Plan Assessment & Plan narrative: # severe microcytic anemia -hemoglobin 5.6 on admission inpatient lethargic and weak, likely secondary to xarelto use and chronic as MCV of 65 -received half a unit of blood in the ED where it was stopped due to possible TRALI -repeat hemoglobin 5.5 so another unit ordered IV Benadryl prior and a very slow rate -IV Lasix 40 mg following unit of blood was given -hold home xarelto, no evidence of GI bleeding thus far. -EGD / c-scope negative for any evidence of bleeding. -PPI 40mg IV BID for now. -h/h improved to >8 after 2U PRBC but downtrended slightly this AM. # Possible TRALI -became dyspneic with chest pressure during blood transfusion -tolerating 2nd unit at slower rate with IV benadryl prior and lasix to follow -mno further symptoms # paroxysmal A-fib -Dr. Bland her national sales manager texted and aware of admission -hold home xarelto # HTN, chronic -continue home chlorthalidone and lisinopril # HLD, chronic -continue home pravastatin # depression -continue home duloxetine # GERD -PPI as above Code status is full code. COVID negative. DVT prophylaxis with SCDs. Proxy is Ramon Yee . I have reviewed home meds and used all available resources to reconcile the home meds. Time Spent With Patient Critical Care time: I spent a total of [] minutes of critical care time on this patient's care today; this time is exclusive of procedural time. Quality VTE Deep Vein Thrombosis/Pulmonary Embolism Present on Admission: Yes
== END 2022-02-13 16:00 | disposition home or self-care (01) | DRG 812 ==
LOC: ED 14:24 → AC 14:32 → ICU 14:41
PROVIDERS: Internal Medicine; Nurse Practitioner Family; Surgery; Admitting Provider Student in an Organized Health Care Education/Training Program; Emergency Provider Emergency Medicine; Family Provider Physician Assistant; PCP Internal Medicine; Referring Provider Emergency Medicine; Visit Provider Student in an Organized Health Care Education/Training Program
PROC: 0DJ08ZZ Inspection of Upper Intestinal Tract, Via Natural or Artificial Opening Endoscopic (ICD-10-PCS; CPT 43235; principal; 2022-02-12 15:30)
PROC: 0DJD8ZZ Inspection of Lower Intestinal Tract, Via Natural or Artificial Opening Endoscopic (ICD-10-PCS; CPT 45378; 2022-02-12 15:30)
DX: D50.9 Iron deficiency anemia, unspecified (principal); J95.84 Transfusion-related acute lung injury (TRALI); I10 Essential (primary) hypertension; E78.5 Hyperlipidemia, unspecified; F32.A Depression, unspecified; K21.9 Gastro-esophageal reflux disease without esophagitis; I48.0 Paroxysmal atrial fibrillation; Z79.01 Long term (current) use of anticoagulants; Z87.891 Personal history of nicotine dependence; Z20.822 Contact with and (suspected) exposure to COVID-19
CPT/HCPCS: 36415; 36430; 36592; 43235; 45378; 71045; 80048; 80053; 82550; 83540; 83550; 83605; 83690; 83735; 83880; 84484; 85014; 85018; 85025; 85610; 85730; 86078; 86850; 86900; 86901; 87635; 93005; 96374; 96375; 99232; 99285; 99291; C9803; P9016; C9113; J1200; J1940; J2250; J2704; J2930; J3010

== ENCOUNTER 2022-08-06 17:06 | Emergency (ER) | payer MEDICARE, OTHER, SELFPAY ==
[2022-02-11 13:09] VITALS: BMI 29.2
[2022-08-06] VITALS (12 sets, daily range): BP systolic 136–164; BP diastolic 60–79; PULSE 65–79; RESP 18; TEMP 36.4; O2SAT 95–97; BMI 31.1
[2022-08-06 17:57] LABS: Add Manual Diff / Slide Review NO; Basophils Absolute Auto 100 /uL (0-100); Basophils Percent Auto 0.6 % (0-2); Eosinophils Absolute Auto 200 /uL (0-450); Eosinophils Percent Auto 1.5 % (2-4); Hematocrit 42.8 % (36-46); Lymphocytes Absolute Auto 2100 /uL (1100-4500); Lymphocytes Percent Auto 17.9 % (25-40); Mean Corpuscular HGB Conc 32.8 % (30-36); Mean Corpuscular Hemoglobin 28.3 PG (26-34); Mean Corpuscular Volume 86.3 fL (80-100); Monocytes Absolute Auto 1100 /uL (0-900); Monocytes Percent Auto 9.1 % (3-14); Neutrophils Absolute Auto 8300 /uL (1500-7000); Neutrophils Percent Auto 70.9 % (50-75); Platelet Count 297 X10^3/uL (150-400); Red Blood Cell Count 4.96 X10^6/uL (4.0-5.2); Red Cell Distribution Width 14.9 % (11.6-14.8); White Blood Cell Count 11.6 X10^3/uL (4.5-11.0)
[2022-08-06 17:58] LABS: Alanine Aminotransferase 20 IU/L (<35); Albumin Globulin Ratio 1.6 (1.0-2.8); Alkaline Phosphatase 131 U/L (38-126); Aspartate Aminotransferase 29 IU/L (14-36); Bilirubin Total 0.5 mg/dL (0.2-1.3); Blood Urea Nitrogen 22 mg/dL (7-17); Calcium 9.9 mg/dL (8.4-10.2); Carbon Dioxide 27 mmol/L (22-32); Chloride 99 mmol/L (98-107); Estimated Glomerular Filt Rate 58 mL/min (>60); Globulin 3.1 g/dL (1.7-4.1); Glucose 128 mg/dL (80-110); HEMOLYSIS < 15 (0-50); Lipase 65 U/L (23-300); Potassium 3.9 mmol/L (3.4-5.1); Sodium 138 mmol/L (137-145); Total Protein 8.1 g/dL (6.3-8.2)
--- NOTE | 2022-08-06 18:42 | ED.GENADULT ---
HPI - General Adult General Chief complaint: Abdominal Pain Stated complaint: Abdomen pain Time Seen by Provider: 08/06/22 17:27 Source: patient and EMS Mode of arrival: EMS Limitations: no limitations History of Present Illness HPI narrative: Patient is a 77-year-old female who is here for evaluation of a fairly sudden onset of abdominal pain. She also states she is been nauseous but no vomiting. No urinary symptoms. No diarrhea. No sick contacts. States she was sitting on the toilet when she had the sudden pain. It has since improved but is still present. No recent abdominal surgeries. Has not tried anything for the symptoms prior to arrival. Related Data Home Medications Medication Instructions Recorded Confirmed duloxetine 30 mg capsule,delayed 60 mg PO DAILY 07/11/18 04/28/22 release dupilumab 300 mg/2 mL subcutaneous See Rx Instructions .Route .COMPLEX 02/12/22 04/28/22 pen injector (Dupixent) magnesium 1 tab PO DAILY 02/12/22 04/28/22 ibuprofen 200 mg tablet 200 mg PO Q6H PRN 03/20/22 04/28/22 losartan 100 mg tablet 100 mg PO DAILY 04/28/22 04/28/22 Previous Rx's Medication Instructions Recorded diclofenac sodium 3 % topical gel 1 applic topical BID #100 grams 03/20/22 hydrocodone 5 mg-acetaminophen 325 1 tab PO BEDTIME PRN pain (scale 04/28/22 mg tablet score 7-10) #28 tabs lidocaine 5 % topical ointment 1 applic topical BEDTIME PRN left 04/28/22 shoulder pain #50 grams pravastatin 20 mg tablet 20 mg PO DAILY #90 tabs 05/06/22 fluticasone 250 mcg-salmeterol 50 1 inh inhalation BID #180 ea 05/11/22 mcg/dose blistr powdr for inhalation (Advair Diskus) potassium chloride 10 mEq 10 meq PO DAILY #90 tabs 05/11/22 tablet,extended release(part/cryst) (Klor-Con M) ondansetron 4 mg disintegrating 4 mg PO DAILY PRN nausea and 07/15/22 tablet vomiting #90 tabs pantoprazole 40 mg tablet,delayed 40 mg PO BEDTIME PRN heartburn #90 07/15/22 release tabs Allergies Allergy/AdvReac Type Severity Reaction Status Date / Time celecoxib [From Celebrex] Allergy Severe Welts Verified 04/28/22 16:00 Penicillins [PENICILLINS] Allergy Severe Welts Verified 04/28/22 16:00 Sulfa (Sulfonamide Allergy Severe Welts Verified 04/28/22 16:00 Antibiotics) [SULFA (SULFONAMIDE ANTIBIOTICS)] codeine [CODEINE] AdvReac Severe Difficulty Verified 04/28/22 16:00 as a child, groggy hydrocodone [From Vicodin] AdvReac Gastrointestinal Verified 04/28/22 16:00 Upset Review of Systems Constitutional Constitutional: Reports system reviewed and no additional complaints, except as documented Cardiovascular Cardiovascular: Reports system reviewed and no additional complaints, except as documented Gastrointestinal Gastrointestinal: Reports system reviewed and no additional complaints, except as documented Genitourinary Genitourinary: Reports system reviewed and no additional complaints, except as documented Integumentary/Breasts Skin/Breast: Reports system reviewed and no additional complaints, except as documented Patient History Medical History Depression Hearing impaired HLD (hyperlipidemia) HTN (hypertension) Skin cancer Spinal stenosis Surgical History History of lumbar fusion (2004) Hx of hand surgery Status post cholecystectomy Status post hysterectomy Status post rotator cuff repair Social History household members: spouse Smoking Status: Former smoker Tobacco: How many years used: 15 alcohol intake: current (~1 drink per month ) substance use type: does not use Smoking Status: Former smoker alcohol intake frequency: holidays/special occasions only Substance Use Type: does not use Exam Initial Vital Signs Initial Vital Signs: Vital Signs Pulse Rate 69 08/06/22 17:16 Pulse Oximetry 97 08/06/22 17:16 Const General: cooperative and healthy appearing Resp Effort & Inspection: normal respiratory effort Auscultation: clear to auscultation bilaterally Cardio Rate: regular rate Rhythm: regular rhythm GI Palpation: soft, No firm and tender (Lower abdomen) Course Orders Ordered: ED Orders 08/06/22 17:20 Complete Blood Count AUTO DIFF Stat Comprehensive Metabolic Panel Stat Lipase Stat 08/06/22 17:42 EKG-12 Lead Stat 08/06/22 18:36 Urine Culture Stat Urine Microscopic Stat 02/23/23 18:43 CT abdomen pelvis w con Stat Discontinued Medications Sodium Chloride (Normal Saline 0.9%) 1,000 mls @ 500 mls/hr IV BOLUS ONE Stop: 08/06/22 20:41 Last Infusion: 08/06/22 21:23 Dose: 0 mls/hr Documented By: Admin: 08/06/22 19:16 Dose: 500 mls/hr Documented By: VICKI Morphine Sulfate (Morphine 4 Mg/Ml Inj) 4 mg IV NOW ONE Stop: 08/06/22 19:08 Last Admin: 08/06/22 19:11 Dose: 4 mg Documented By: VICKI Ondansetron HCl (Ondansetron 4 Mg Odt Prepack) 1 bottle MISC SEEINSTR ONE Stop: 08/06/22 20:35 Last Admin: 08/06/22 20:48 Dose: 1 bottle Documented By: JERZY Vital Signs Vital signs: Vital Signs - 8 hr 08/06/22 17:42 08/06/22 18:00 08/06/22 18:00 Temperature 97.6 F Pulse Rate 65 71 Respiratory Rate 18 Blood Pressure 157/67 H 136/64 Pulse Oximetry 97 97 Oxygen Delivery Method Room Air 08/06/22 19:25 08/06/22 19:26 08/06/22 19:26 Temperature Pulse Rate 73 75 Respiratory Rate Blood Pressure 140/79 Pulse Oximetry 97 Oxygen Delivery Method 08/06/22 19:30 08/06/22 19:30 08/06/22 20:00 Temperature Pulse Rate 71 Respiratory Rate Blood Pressure 148/67 H 157/70 H Pulse Oximetry 96 Oxygen Delivery Method 08/06/22 20:00 08/06/22 20:30 08/06/22 20:30 Temperature Pulse Rate 79 77 Respiratory Rate Blood Pressure 164/71 H Pulse Oximetry 96 95 Oxygen Delivery Method 08/06/22 21:00 08/06/22 21:01 08/06/22 21:01 Temperature Pulse Rate 73 72 Respiratory Rate Blood Pressure 144/60 H Pulse Oximetry 97 97 Oxygen Delivery Method Medical Decision Making Lab Data Lab results reviewed: Yes I reviewed the patient's lab results. 08/06/22 17:20 08/06/22 17:20 Labs: Lab Results 08/06/22 08/06/22 08/06/22 Range/Units 17:20 17:20 18:36 WBC 11.6 H (4.5-11.0) X10^3/uL RBC 4.96 (4.0-5.2) X10^6/uL Hgb 14.0 (12.0-16.0) g/dL Hct 42.8 (36-46) % MCV 86.3 (80-100) fL MCH 28.3 (26-34) PG MCHC 32.8 (30-36) % RDW 14.9 H (11.6-14.8) % Plt Count 297 (150-400) X10^3/uL Neut % (Auto) 70.9 (50-75) % Lymph % (Auto) 17.9 L (25-40) % [place] % (Auto) 9.1 (3-14) % Eos % (Auto) 1.5 L (2-4) % Baso % (Auto) 0.6 (0-2) % Neut # (Auto) 8300 H (2904-7073) /uL Lymph # (Auto) 2100 (1157-6375) /uL [place] # (Auto) 1100 H (0-900) /uL Eos # (Auto) 200 (0-450) /uL Baso # (Auto) 100 (0-100) /uL Sodium 138 (137-145) mmol/L Potassium 3.9 (3.4-5.1) mmol/L Chloride 99 (98-107) mmol/L Carbon Dioxide 27 (22-32) mmol/L BUN 22 H (7-17) mg/dL Creatinine 1.00 (0.52-1.04) mg/dL Estimated GFR 58 L (>60) mL/min BUN/Creatinine Ratio 22.0 (6-22) Glucose 128 H (80-110) mg/dL Calcium 9.9 (8.4-10.2) mg/dL Total Bilirubin 0.5 (0.2-1.3) mg/dL AST 29 (14-36) IU/L ALT 20 (<35) IU/L Alkaline Phosphatase 131 H (38-126) U/L Total Protein 8.1 (6.3-8.2) g/dL Albumin 5.0 (3.5-5.0) g/dL Globulin 3.1 (1.7-4.1) g/dL Albumin/Globulin Ratio 1.6 (1.0-2.8) Lipase 65 (23-300) U/L Urine RBC 0-1/hpf (0-5/HPF) Urine WBC 5-10/hpf H (0-5/HPF) Ur Squamous Epith Cells 0-1 /hpf (0-5/HPF) Ur Transition Epith Cell 5-10/hpf H (0-5/HPF) Calcium Oxalate Crystal Moderate H Amorphous Sediment 1+ Urine Bacteria Occasional (0-1) (None) Hyaline Casts 5-10/lpf (None) Urine Mucus 1+ H (Negative) Ur Culture Indicated? Specimen cultured Urine Dip Bedside Urine Glucose Negative Bedside Urine Bilirubin + 1 Bedside Urine Ketone +/- 5 Urine Specific [place] 1.030 Bedside Urine Occult Blood - Negative Bedside Urine pH 6.0 Bedside Urine Protein + 30 Bedside Urine Urobilinogen - Negative Bedside Urine Nitrite - Negative Bedside Urine Leukocytes + 70 Esterase Point of care testing: Urine Dip Bedside Urine Glucose Negative Bedside Urine Bilirubin + 1 Bedside Urine Ketone +/- 5 Urine Specific [place] 1.030 Bedside Urine Occult Blood - Negative Bedside Urine pH 6.0 Bedside Urine Protein + 30 Bedside Urine Urobilinogen - Negative Bedside Urine Nitrite - Negative Bedside Urine Leukocytes + [address] scan - abdomen/pelvis: Radiologist's Impression: PROCEDURE:? CT ABDOMEN PELVIS W CON ? INDICATIONS:? Lower abd pain ? TECHNIQUE:? After the administration of intravenous contrast, axial sections acquired from the lung bases to the pubic symphysis.? Coronal and sagittal reformats were performed.? For radiation dose reduction, the following was used:? automated exposure control, adjustment of mA and/or kV according to patient size.? ? COMPARISON:? [facility], CT, CT ABDOMEN PELVIS W CON, 07/11/2018, 16:11. ? FINDINGS:? Image quality:? Good ? Lower chest:? Suspected basal scarring/atelectasis.? Nonspecific distal esophageal wall thickening and small hiatal hernia, for which further evaluation could be obtained with endoscopy if necessary.? This was seen previously. ? Solid organs:? Cholecystectomy.? Liver is unremarkable.? Similar biliary ductal dilation, post cholecystectomy.? This could be correlated with LFTs.? Pancreatic duct is nondilated.? No splenomegaly.? Possible calcified splenic artery aneurysm along the hilum.? No adrenal nodules.? Bosniak 1 and 2 renal lesions are present, for which no dedicated followup is necessary per 2019 proposed guidelines.? No hydronephrosis.? ? Vessels and lymph nodes:? The main portal vein is patent.? No abdominal aortic aneurysm or pathologic adenopathy by size criteria. ? Bowel and peritoneum:? No evidence of small bowel obstruction.? Normal appendix.? Moderate fecal loading.? No pathologic ascites. ? Body wall:? Unremarkable ? Pelvis:? Multi lobular right adnexal cystic lesion may be slightly increased in size, measuring about 4.3 x 4.6 cm.? Hysterectomy.? Bladder is unremarkable, under distended. ? Bones:? Postsurgical edematous changes in the lower lumbar spine, particularly in the paravertebral soft tissues. ? IMPRESSION:? No evidence of small bowel obstruction.? Moderate fecal loading.? No acute abdominal pathology.? ? Postsurgical changes of the lumbar spine, with edematous appearance of the paravertebral musculature and epidural region, correlate with location of symptoms and consider further evaluation with MRI if necessary. ? Multi lobular right adnexal cystic lesions again seen, possibly slightly increased in size compared to 2019. Pelvic MRI could further evaluate.? Consider gynecologic consultation. ? Other findings as above.? ECG Data Attestation: I personally reviewed and interpreted this ECG as follows: Interpretation: Sinus rhythm Ventricular rate is 72 Normal axis Normal QRS Normal QTC No ST T wave changes MDM Narrative Medical decision making narrative: Patient does have a benign exam. The CT scan shows no acute pathology. Labs are unremarkable. No indication for antibiotics. No indication for surgical consultation. Her discomfort is clearly in the abdomen have low suspicion for cardiac etiology. Discharge patient home with return precautions. She expressed understanding and agreement. Discharge Plan Departure Patient Disposition: Home Clinical Impression: Abdominal pain, Nausea Instructions: DI for Abdominal Pain-Adult, DI for Nausea -- Adult Activity Restrictions/Additional Instructions: Use the nausea medication as needed. I do recommend that you eat a bland diet and you can advance this as tolerated. Be sure to increase your fluid intake as much as possible. Return to the emergency department for any new or worsening symptoms. Prescriptions: No Action pravastatin 20 mg tablet 20 mg PO DAILY Qty: 90 1RF fluticasone propion-salmeterol [Advair Diskus] 250-50 mcg/dose blister with device 1 inh INHALATION BID Qty: 180 1RF potassium chloride [Klor-Con M10] 10 mEq tablet,ER particles/crystals 10 meq PO DAILY Qty: 90 1RF pantoprazole 40 mg tablet,delayed release (DR/EC) 40 mg PO BEDTIME PRN (Reason: heartburn) Qty: 90 2RF ondansetron 4 mg tablet,disintegrating 4 mg PO DAILY PRN (Reason: nausea and vomiting) Qty: 90 0RF ibuprofen 200 mg tablet 200 mg PO Q6H PRN diclofenac sodium 3 % gel 1 applic topical BID Qty: 100 0RF losartan 100 mg tablet 100 mg PO DAILY hydrocodone-acetaminophen 5-325 mg tablet 1 tab PO BEDTIME PRN (Reason: pain (scale score 7-10)) Qty: 28 0RF Rx Instructions: 1/2-1 tab at night for breakthrough pain while shoulder continues to heal lidocaine 5 % ointment 1 applic topical BEDTIME PRN (Reason: left shoulder pain) Qty: 50 0RF Rx Instructions: apply to skin over painful area as needed for pain duloxetine 30 mg capsule,delayed release(DR/EC) 60 mg PO DAILY Label Comments: TK 1 C PO QD Dupixent Pen 300 mg/2 mL pen injector See Rx Instructions .ROUTE .COMPLEX Rx Instructions: every other week magnesium Tablet 1 tab PO DAILY Rx Instructions: stated 40mg tablet Referrals: Kylah Toussaint DO [Primary Care Provider] - Stand Alone Forms: Patient Portal/API
--- NOTE | 2022-08-06 18:43 | DI.CT.S_ITS ---
PROCEDURE: CT ABDOMEN PELVIS W CON INDICATIONS: Lower abd pain TECHNIQUE: After the administration of intravenous contrast, axial sections acquired from the lung bases to the pubic symphysis. Coronal and sagittal reformats were performed. For radiation dose reduction, the following was used: automated exposure control, adjustment of mA and/or kV according to patient size. COMPARISON: [facility], CT, CT ABDOMEN PELVIS W CON, 07/11/2018, 16:11. FINDINGS: Image quality: Good Lower chest: Suspected basal scarring/atelectasis. Nonspecific distal esophageal wall thickening and small hiatal hernia, for which further evaluation could be obtained with endoscopy if necessary. This was seen previously. Solid organs: Cholecystectomy. Liver is unremarkable. Similar biliary ductal dilation, post cholecystectomy. This could be correlated with LFTs. Pancreatic duct is nondilated. No splenomegaly. Possible calcified splenic artery aneurysm along the hilum. No adrenal nodules. Bosniak 1 and 2 renal lesions are present, for which no dedicated followup is necessary per 2019 proposed guidelines. No hydronephrosis. Vessels and lymph nodes: The main portal vein is patent. No abdominal aortic aneurysm or pathologic adenopathy by size criteria. Bowel and peritoneum: No evidence of small bowel obstruction. Normal appendix. Moderate fecal loading. No pathologic ascites. Body wall: Unremarkable Pelvis: Multi lobular right adnexal cystic lesion may be slightly increased in size, measuring about 4.3 x 4.6 cm. Hysterectomy. Bladder is unremarkable, under distended. Bones: Postsurgical edematous changes in the lower lumbar spine, particularly in the paravertebral soft tissues. IMPRESSION: No evidence of small bowel obstruction. Moderate fecal loading. No acute abdominal pathology. Postsurgical changes of the lumbar spine, with edematous appearance of the paravertebral musculature and epidural region, correlate with location of symptoms and consider further evaluation with MRI if necessary. Multi lobular right adnexal cystic lesions again seen, possibly slightly increased in size compared to 2019. Pelvic MRI could further evaluate. Consider gynecologic consultation. Other findings as above. Dictated by: Michael Arias M.D. on 08/06/2022 at 19:46 Approved by: Michael Arias M.D. on 08/06/2022 at 19:54
[2022-08-06] MEDS: MORPHINE 4 MG/ML INJ IV (19:11)
[2022-08-06 19:16] LABS: Amorphous Sediment Urine 1+; Bacteria Urine Occasional (0-1); Hyaline Casts Urine 5-10/LPF; Mucus Urine 1+ (Negative); RBC Urine 0-1/HPF (0-5/HPF); Squamous Epithelial Cell Urine 0-1 /HPF (0-5/HPF); Transitional Epi Cells Urine 5-10/HPF (0-5/HPF); WBC Urine 5-10/HPF (0-5/HPF)
[2022-08-06] MEDS: SODIUM CHLORIDE 0.9% 1,000 ML 500 ML IV (19:16)
[2022-08-06 19:17] LABS: Culture Indicated Urine Specimen Cultured
[2022-08-06 19:55] LABS: Calcium Oxalate Crystals Urine Moderate
[2022-08-06] MEDS: ONDANSETRON 4 MG ODT PREPACK 1 BOTTLE MISC (20:48)
== END 2022-08-06 21:45 | disposition home or self-care (01) ==
PROVIDERS: Emergency Medicine; Emergency Provider Emergency Medicine; Family Provider Physician Assistant; PCP Family Medicine
DX: R10.9 Unspecified abdominal pain (principal); R11.0 Nausea; A49.8 Other bacterial infections of unspecified site; Z90.710 Acquired absence of both cervix and uterus; Z79.899 Other long term (current) drug therapy
CPT/HCPCS: 36415; 74177; 80053; 81003; 81015; 83690; 85025; 87077; 87086; 87186; 93005; 96361; 96374; 99284; J2270

== ENCOUNTER 2022-10-16 10:14 | Emergency (ER) | payer MEDICARE, OTHER, SELFPAY ==
[2022-02-11 13:09] VITALS: BMI 29.2
[2022-10-16 10:27] VITALS: BP 142/74; PULSE 97; O2SAT 96
[2022-10-16 10:30] VITALS: PULSE 91; O2SAT 98
[2022-10-16 10:37] VITALS: BP 142/74; PULSE 90; RESP 20; O2SAT 97; BMI 25.7
--- NOTE | 2022-10-16 10:50 | DI.CT.S_ITS ---
PROCEDURE: CT ABDOMEN PELVIS W CON INDICATIONS: Generalized abdominal pain with vomiting TECHNIQUE: After the administration of intravenous contrast, axial sections acquired from the lung bases to the pubic symphysis. Coronal and sagittal reformats were performed. For radiation dose reduction, the following was used: automated exposure control, adjustment of mA and/or kV according to patient size. COMPARISON: [facility], CT, CT ABDOMEN PELVIS W CON, 08/06/2022, 18:58. FINDINGS: Lower thorax: The lung bases are clear. Heart size normal. Small hiatal hernia noted. Liver: Normal in size and attenuation. No contour deformity present. Biliary system: Cholecystectomy. Mild appropriate intra or extrahepatic bile duct dilation. Pancreas: Unremarkable without mass or inflammation evident. Spleen: Normal in size and density. Adrenals: Normal morphology and density. Reproductive system: Unremarkable as visualized. Urinary system: Normal renal size and attenuation. No renal calculi, hydronephrosis, or solid mass present. Urinary bladder unremarkable. small right renal cortical cyst measures less than 1 cm Gastrointestinal system: Diffuse bowel wall thickening involves the left colon and sigmoid surrounding inflammatory change, consistent with colitis. No abscess or perforation. No obstruction. Appendix: No findings to suggest acute appendicitis. Peritoneal spaces: No mesenteric or retroperitoneal adenopathy. No free air. No free fluid. Vasculature: The IVC, aorta and iliac vasculature are unremarkable. Abdominal wall: Abdominal wall intact without evidence of ventral or inguinal hernias. Musculoskeletal: Normal bone mineralization. Degenerative disc disease and arthropathy noted in lower lumbar spine. Lower lumbar spine decompressive laminectomy with instrumentation and fusion. No acute fractures. IMPRESSION: 1. Left-sided colitis without evidence of obstruction, free air or abscess. 2. Chronic findings as above Approved by: Rasheed Jenkins M.D. on 10/16/2022 at 11:15
--- NOTE | 2022-10-16 10:51 | ED.GENADULT ---
HPI - General Adult General Chief complaint: Abdominal Pain Stated complaint: Possible Food Poisoning/Red Blood in Stool, HX Tra Time Seen by Provider: 10/16/22 10:45 Source: patient Mode of arrival: Ambulatory History of Present Illness HPI narrative: Patient is a 77-year-old female. She states that last evening after eating dinner she had episodes of diarrhea and vomiting. She states she did have some blood in her stool. Was multiple episodes of vomiting and diarrhea. States she did have an episode where she passed out. The EMS came over to evaluate her. She was not transport to the emergency department. The vomiting and diarrhea has since stopped however she is still having abdominal pain. No fevers. She has had a blood transfusion in the past. She describes the pain is all over her abdomen. No chest pain. No shortness of breath. No prior abdominal surgeries. who is with her at bedside states he is not ill although he did eat different food than what she did last night. Related Data Home Medications Medication Instructions Recorded Confirmed duloxetine 30 mg capsule,delayed 60 mg PO DAILY 07/11/18 04/28/22 release dupilumab 300 mg/2 mL subcutaneous See Rx Instructions .Route .COMPLEX 02/12/22 04/28/22 pen injector (Dupixent) magnesium 1 tab PO DAILY 02/12/22 04/28/22 ibuprofen 200 mg tablet 200 mg PO Q6H PRN 03/20/22 04/28/22 losartan 100 mg tablet 100 mg PO DAILY 04/28/22 04/28/22 Previous Rx's Medication Instructions Recorded diclofenac sodium 3 % topical gel 1 applic topical BID #100 grams 03/20/22 hydrocodone 5 mg-acetaminophen 325 1 tab PO BEDTIME PRN pain (scale 04/28/22 mg tablet score 7-10) #28 tabs lidocaine 5 % topical ointment 1 applic topical BEDTIME PRN left 04/28/22 shoulder pain #50 grams potassium chloride 10 mEq 10 meq PO DAILY #90 tabs 05/11/22 tablet,extended release(part/cryst) (Klor-Con M) ondansetron 4 mg disintegrating 4 mg PO DAILY PRN nausea and 07/15/22 tablet vomiting #90 tabs pantoprazole 40 mg tablet,delayed 40 mg PO BEDTIME PRN heartburn #90 07/15/22 release tabs fluticasone 250 mcg-salmeterol 50 1 inh inhalation BID #180 ea 10/14/22 mcg/dose blistr powdr for inhalation (Advair Diskus) pravastatin 20 mg tablet 20 mg PO DAILY #90 tabs 10/14/22 ondansetron 4 mg disintegrating 4 mg PO Q6H PRN nausea and 10/16/22 tablet vomiting #10 tabs Allergies Allergy/AdvReac Type Severity Reaction Status Date / Time celecoxib [From Celebrex] Allergy Severe Welts Verified 04/28/22 16:00 Penicillins [PENICILLINS] Allergy Severe Welts Verified 04/28/22 16:00 Sulfa (Sulfonamide Allergy Severe Welts Verified 04/28/22 16:00 Antibiotics) [SULFA (SULFONAMIDE ANTIBIOTICS)] codeine [CODEINE] AdvReac Severe Difficulty Verified 04/28/22 16:00 as a child, groggy hydrocodone [From Vicodin] AdvReac Gastrointestinal Verified 04/28/22 16:00 Upset Review of Systems Constitutional Constitutional: Reports system reviewed and no additional complaints, except as documented Cardiovascular Cardiovascular: Reports system reviewed and no additional complaints, except as documented Respiratory Respiratory: Reports system reviewed and no additional complaints, except as documented Gastrointestinal Gastrointestinal: Reports system reviewed and no additional complaints, except as documented Genitourinary Genitourinary: Reports system reviewed and no additional complaints, except as documented Integumentary/Breasts Skin/Breast: Reports system reviewed and no additional complaints, except as documented Hematologic/Lymphatic On Anticoagulants: No Patient History Medical History Depression Hearing impaired HLD (hyperlipidemia) HTN (hypertension) Skin cancer Spinal stenosis Surgical History History of lumbar fusion (2004) Hx of hand surgery Status post cholecystectomy Status post hysterectomy Status post rotator cuff repair Social History household members: spouse Smoking Status: Former smoker Tobacco: How many years used: 15 alcohol intake: current (~1 drink per month ) substance use type: does not use Smoking Status: Former smoker alcohol intake frequency: holidays/special occasions only Substance Use Type: does not use Exam Initial Vital Signs Initial Vital Signs: Vital Signs Pulse Rate 97 H 10/16/22 10:27 Blood Pressure 142/74 H 10/16/22 10:27 Pulse Oximetry 96 10/16/22 10:27 Const General: cooperative, comfortable and No ill appearing HENMT Head: normal to inspection and normocephalic Resp Effort & Inspection: normal respiratory effort Auscultation: clear to auscultation bilaterally Cardio Rate: regular rate Rhythm: regular rhythm GI Inspection: normal to inspection Palpation: soft, No firm and tender Skin General: no rashes or lesions noted Neuro General: patient alert, patient awake and moves all extremities Extrem General: capillary refill normal Course Orders Ordered: ED Orders 10/16/22 10:50 CT abdomen pelvis w con Stat Complete Blood Count AUTO DIFF Stat Comprehensive Metabolic Panel Stat Lipase Stat 10/16/22 10:55 EKG-12 Lead Stat Ondansetron HCl (Ondansetron 4 Mg Odt) 4 mg PO NOW PRN PRN Reason: Nausea And Vomiting Ondansetron HCl (Ondansetron 4 Mg/2 Ml Inj) 4 mg IV NOW PRN PRN Reason: Nausea And Vomiting Discontinued Medications Sodium Chloride (Normal Saline 0.9%) 1,000 mls @ 1,000 mls/hr IV BOLUS ONE Stop: 10/16/22 11:44 Last Admin: 10/16/22 11:43 Dose: 1,000 mls/hr Documented By: NR Vital Signs Vital signs: Vital Signs - 8 hr 10/16/22 10:37 10/16/22 10:27 10/16/22 10:27 Pulse Rate 90 97 H Respiratory Rate 20 Blood Pressure 142/74 H 142/74 H Pulse Oximetry 97 96 Oxygen Delivery Method Room Air 10/16/22 10:30 Pulse Rate 91 H Respiratory Rate Blood Pressure Pulse Oximetry 98 Oxygen Delivery Method Medical Decision Making Medical Records Medical records reviewed: Yes I reviewed the patient's medical records. Lab Data Lab results reviewed: Yes I reviewed the patient's lab results. 10/16/22 10:50 10/16/22 10:50 Labs: Lab Results 10/16/22 10/16/22 Range/Units 10:50 10:50 WBC 19.8 H (4.5-11.0) X10^3/uL RBC 4.51 (4.0-5.2) X10^6/uL Hgb 12.5 (12.0-16.0) g/dL Hct 37.9 (36-46) % MCV 84.1 (80-100) fL MCH 27.7 (26-34) PG MCHC 33.0 (30-36) % RDW 14.6 (11.6-14.8) % Plt Count 268 (150-400) X10^3/uL Neut % (Auto) 82.3 H (50-75) % Lymph % (Auto) 8.0 L (25-40) % [place] % (Auto) 8.9 (3-14) % Eos % (Auto) 0.1 L (2-4) % Baso % (Auto) 0.7 (0-2) % Neut # (Auto) 48150 H (6443-3459) /uL Lymph # (Auto) 1600 (4008-9687) /uL [place] # (Auto) 1800 H (0-900) /uL Eos # (Auto) 0 (0-450) /uL Baso # (Auto) 100 (0-100) /uL Sodium 136 L (137-145) mmol/L Potassium 3.7 (3.4-5.1) mmol/L Chloride 99 (98-107) mmol/L Carbon Dioxide 29 (22-32) mmol/L BUN 15 (7-17) mg/dL Creatinine 0.76 (0.52-1.04) mg/dL Estimated GFR > 60 (>60) mL/min BUN/Creatinine Ratio 19.7 (6-22) Glucose 141 H (80-110) mg/dL Calcium 9.1 (8.4-10.2) mg/dL Total Bilirubin 0.6 (0.2-1.3) mg/dL AST 27 (14-36) IU/L ALT 21 (<35) IU/L Alkaline Phosphatase 123 (38-126) U/L Total Protein 7.1 (6.3-8.2) g/dL Albumin 4.3 (3.5-5.0) g/dL Globulin 2.8 (1.7-4.1) g/dL Albumin/Globulin Ratio 1.5 (1.0-2.8) Lipase 36 (23-300) U/L Imaging Data CT scan - abdomen/pelvis: Radiologist's Impression: PROCEDURE:? CT ABDOMEN PELVIS W CON ? INDICATIONS:? Generalized abdominal pain with vomiting ? TECHNIQUE:? After the administration of intravenous contrast, axial sections acquired from the lung bases to the pubic symphysis.? Coronal and sagittal reformats were performed.? For radiation dose reduction, the following was used:? automated exposure control, adjustment of mA and/or kV according to patient size.? ? COMPARISON:? [facility], CT, CT ABDOMEN PELVIS W CON, 08/06/2022, 18:58. ? FINDINGS: ? Lower thorax: The lung bases are clear.? Heart size normal.? Small hiatal hernia noted. ? Liver:? Normal in size and attenuation. No contour deformity present. ? Biliary system:? Cholecystectomy.? Mild appropriate intra or extrahepatic bile duct dilation. ? Pancreas:? Unremarkable without mass or inflammation evident. ? Spleen:? Normal in size and density. ? Adrenals:? Normal morphology and density. ? Reproductive system:? Unremarkable as visualized. ? Urinary system:? Normal renal size and attenuation. No renal calculi, hydronephrosis, or solid mass present.? Urinary bladder unremarkable. small right renal cortical cyst measures less than 1 cm ? Gastrointestinal system:? Diffuse bowel wall thickening involves the left colon and sigmoid surrounding inflammatory change, consistent with colitis.? No abscess or perforation.? No obstruction. ? Appendix:? No findings to suggest acute appendicitis. ? Peritoneal spaces:? No mesenteric or retroperitoneal adenopathy.? No free air.? No free fluid.? ? Vasculature:? The IVC, aorta and iliac vasculature are unremarkable. ? Abdominal wall:? Abdominal wall intact without evidence of ventral or inguinal hernias. ? Musculoskeletal:? Normal bone mineralization.? Degenerative disc disease and arthropathy noted in lower lumbar spine.? Lower lumbar spine decompressive laminectomy with instrumentation and fusion.? No acute fractures.? ? IMPRESSION: ? 1. Left-sided colitis without evidence of obstruction, free air or abscess. ? 2. Chronic findings as above ECG Data Attestation: I personally reviewed and interpreted this ECG as follows: Interpretation: Sinus rhythm Ventricular rate 82 Normal axis Normal QRS Normal QTC Nonspecific ST T wave changes MDM Narrative Medical decision making narrative: CT scan shows colitis. This is consistent with her presentation. She is not anemic. She does have leukocytosis however this is most likely from her diarrheal illness. No indication for antibiotics. After fluids she stated that she was feeling better. Her EKG was unremarkable. I suspect that the syncopal episode was related to all the vomiting and the diarrhea last night. Will discharge patient home. No indication for admission. No indication for surgical consultation. She was given return precautions. She expressed understanding and agreement. Discharge Plan Departure Patient Disposition: Home Clinical Impression: Colitis Instructions: DI for Colitis Activity Restrictions/Additional Instructions: I do recommend that you increase your fluid intake. I also recommend a bland diet for the next day or so. A prescription for nausea medicine was sent to your pharmacy of choice. Return to the emergency department for new or worsening symptoms like we discussed. Prescriptions: New ondansetron 4 mg tablet,disintegrating 4 mg PO Q6H PRN (Reason: nausea and vomiting) Qty: 10 0RF No Action potassium chloride [Klor-Con M10] 10 mEq tablet,ER particles/crystals 10 meq PO DAILY Qty: 90 1RF pantoprazole 40 mg tablet,delayed release (DR/EC) 40 mg PO BEDTIME PRN (Reason: heartburn) Qty: 90 2RF ondansetron 4 mg tablet,disintegrating 4 mg PO DAILY PRN (Reason: nausea and vomiting) Qty: 90 0RF pravastatin 20 mg tablet 20 mg PO DAILY Qty: 90 0RF fluticasone propion-salmeterol [Advair Diskus] 250-50 mcg/dose blister with device 1 inh INHALATION BID Qty: 180 0RF ibuprofen 200 mg tablet 200 mg PO Q6H PRN diclofenac sodium 3 % gel 1 applic topical BID Qty: 100 0RF losartan 100 mg tablet 100 mg PO DAILY hydrocodone-acetaminophen 5-325 mg tablet 1 tab PO BEDTIME PRN (Reason: pain (scale score 7-10)) Qty: 28 0RF Rx Instructions: 1/2-1 tab at night for breakthrough pain while shoulder continues to heal lidocaine 5 % ointment 1 applic topical BEDTIME PRN (Reason: left shoulder pain) Qty: 50 0RF Rx Instructions: apply to skin over painful area as needed for pain duloxetine 30 mg capsule,delayed release(DR/EC) 60 mg PO DAILY Patient Comments: TK 1 C PO QD Dupixent Pen 300 mg/2 mL pen injector See Rx Instructions .ROUTE .COMPLEX Rx Instructions: every other week magnesium Tablet 1 tab PO DAILY Rx Instructions: stated 40mg tablet Referrals: Kylah Toussaint DO [Primary Care Provider] - Stand Alone Forms: Patient Portal/API
[2022-10-16 10:59] LABS: Add Manual Diff / Slide Review NO; Basophils Absolute Auto 100 /uL (0-100); Basophils Percent Auto 0.7 % (0-2); Eosinophils Absolute Auto 0 /uL (0-450); Eosinophils Percent Auto 0.1 % (2-4); Hematocrit 37.9 % (36-46); Hemoglobin 12.5 g/dL (12.0-16.0); Lymphocytes Absolute Auto 1600 /uL (1100-4500); Mean Corpuscular Hemoglobin 27.7 PG (26-34); Mean Corpuscular Volume 84.1 fL (80-100); Monocytes Absolute Auto 1800 /uL (0-900); Monocytes Percent Auto 8.9 % (3-14); Neutrophils Absolute Auto 16300 /uL (1500-7000); Neutrophils Percent Auto 82.3 % (50-75); Platelet Count 268 X10^3/uL (150-400); Red Blood Cell Count 4.51 X10^6/uL (4.0-5.2); Red Cell Distribution Width 14.6 % (11.6-14.8); White Blood Cell Count 19.8 X10^3/uL (4.5-11.0)
[2022-10-16 11:00] VITALS: PULSE 79; O2SAT 99
[2022-10-16 11:13] LABS: Alanine Aminotransferase 21 IU/L (<35); Albumin 4.3 g/dL (3.5-5.0); Albumin Globulin Ratio 1.5 (1.0-2.8); Alkaline Phosphatase 123 U/L (38-126); Aspartate Aminotransferase 27 IU/L (14-36); BUN Creatinine Ratio 19.7 (6-22); Bilirubin Total 0.6 mg/dL (0.2-1.3); Blood Urea Nitrogen 15 mg/dL (7-17); Calcium 9.1 mg/dL (8.4-10.2); Carbon Dioxide 29 mmol/L (22-32); Chloride 99 mmol/L (98-107); Estimated Glomerular Filt Rate > 60 mL/min (>60); Globulin 2.8 g/dL (1.7-4.1); Glucose 141 mg/dL (80-110); HEMOLYSIS < 15 (0-50); Lipase 36 U/L (23-300); Potassium 3.7 mmol/L (3.4-5.1); Sodium 136 mmol/L (137-145); Total Protein 7.1 g/dL (6.3-8.2)
[2022-10-16] MEDS: SODIUM CHLORIDE 0.9% 1,000 ML 1000 ML IV (11:43)
[2022-10-16 12:00] VITALS: PULSE 81; O2SAT 97
[2022-10-16 12:30] VITALS: PULSE 79; O2SAT 97
== END 2022-10-16 13:11 | disposition home or self-care (01) ==
PROVIDERS: Emergency Provider Emergency Medicine; Family Provider Physician Assistant; PCP Family Medicine
DX: K52.9 Noninfective gastroenteritis and colitis, unspecified (principal); R10.84 Generalized abdominal pain; R11.10 Vomiting, unspecified
CPT/HCPCS: 36415; 74177; 80053; 83690; 85025; 93005; 96360; 99284; Q9967